=== PATIENT | male | born 1965 | race Caucasian/White ===

== ENCOUNTER 2021-05-14 15:43 | Inpatient (IN) | payer OTHER ==
[~2021-05-14] VITALS: Ht 193 cm; Wt 138.5 kg
[2021-05-14] MEDS ORDERED: AMLO10 PO (18:57)
[2021-05-14 19:14] LABS: International Normalized Ratio 1.22; Prothrombin Time Results 12.6 Sec (9.7-11.5)
[2021-05-14 19:31] LABS: Troponin I 0.018 ng/mL (0.000-0.040)
[2021-05-14 19:32] LABS: Thyroid Stimulating Hormone 0.701 uIU/mL (0.360-4.800)
[2021-05-15 03:14] LABS: Alanine Aminotransfer (ALT/SGP 47 U/L (12-78); Albumin, Blood 2.5 g/dL (3.4-5.0); Albumin/Globulin Ratio 0.6 (0.8-1.8); Alk Phos 52 U/L (50-136); Anion Gap 12 mmol/L (6-16); Aspartate Aminotrans (AST/SGOT 17 U/L (12-37); Bilirubin, Total 1.7 mg/dL (0.1-1.0); Blood Urea Nitrogen 17 mg/dL (8-24); Bun/Creatinine Ratio 16.5 (12.0-20.0); CO2, Blood 21 mmol/L (21-32); Calcium, Blood 8.6 mg/dL (8.5-10.1); Chloride, Blood 104 mmol/L (98-108); Cholesterol 123 mg/dL (50-200); Creatinine, Blood 1.03 mg/dL (0.60-1.20); Glomerular Filtration Rate >60 (60-); Glucose, Blood 171 mg/dL (70-99); HDL Cholesterol 31 mg/dL (>39); LDL/HDL RATIO 2.6; Low Density Lipoprotein Chol 81 mg/dL (0-110); Potassium, Blood 4.6 mmol/L (3.5-5.5); Sodium, Blood 137 mmol/L (136-145); Total Protein, Blood 6.5 g/dL (6.4-8.2); Triglycerides 56 mg/dL (30-160); Very Low Density Lipoprot Chol 11 mg/dL (6-32)
[2021-05-15 06:12] LABS: BASOPHILS ABSOLUTE AUTO 0.04 K/mm3 (0.00-0.23); BASOPHILS PERCENT AUTO 0 % (0-2); EOSINOPHILS PERCENT AUTO 0 % (0-6); Hematocrit 50.1 % (37.0-53.0); Hemoglobin 16.5 g/dL (13.5-17.5); IMMATURE GRAN ABSOLUTE AUTO 0.17 K/mm3 (0.00-0.10); IMMATURE GRAN PERCENT AUTO 1 % (0-1); LYMPHOCYTES ABSOLUTE AUTO 1.05 K/mm3 (0.84-5.20); LYMPHOCYTES PERCENT AUTO 6 % (21-46); MONOCYTES ABSOLUTE AUTO 1.93 K/mm3 (0.16-1.47); MONOCYTES PERCENT AUTO 12 % (4-13); Mean Corpuscular HGB 27.9 pg (26.0-34.0); Mean Corpuscular HGB Conc 32.9 g/dL (31.5-36.5); Mean Corpuscular Volume 85 fL (80-100); Mean Platelet Volume 10.7 fL (9.1-12.4); NEUTROPHILS ABSOLUTE AUTO 13.49 K/mm3 (1.96-9.15); NEUTROPHILS PERCENT AUTO 81 % (41-73); Platelet Count 376 K/mm3 (150-400); RDW Coefficient Variation 14.9 % (11.7-14.2); RDW Standard Deviation 44.2 fL (35.1-46.3); Red Blood Cell Count 5.92 M/mm3 (4.30-5.90); White Blood Cell Count 16.68 K/mm3 (4.00-11.30)
--- NOTE | 2021-05-15 07:38 | NUR ---
SHIFT SUMMARY ER TRANSFER. ASSUMED CARE AT 0500. PT ALERT AND ORIENTED X4. ON RA MAINTAINING SATS OVER 90%. AFIB 100, 110'S. CARDIZEM AND HEPARIN GTT INFUSING. +2 PITTING LOWER EXTREMITY EDEMA. C/O CHEST TIGHTNESS. SOB W/ ACTIVITY. IN BED RESTING WITH CALL ALARM AT SIDE
--- NOTE | 2021-05-15 12:31 | NUR ---
Echocardiogram completed.
--- NOTE | 2021-05-15 17:34 | NUR ---
END OF SHIFT SUMMARY: FULL CODE, COVID, PE. PATIENT HAS A HISTORY OF HTN, BP'S HAVE BEEN WNL, PATIENT DOES HAVE CHEST TIGHTNESS, HOWEVER, HAS NOT INCREASED, AND HAS BEEN CONSISTENT. TROP -, LUNGS ARE DIM ON THE RLL BUT CLEAR AND COARSE ON THE REST. PATINET HAS BEEN AFIB IN THE 90-110'S CARDIZEM DRIP AT 5, HEPARIN DRIP AT 22, 47.5 ML/HR. INDEPENT IN THE ROOM O2 AT 2LPM SPO2 >93%. APPETITE APPROPRIATE. ACTIVE IN REPOSITIONING THROUGHOUT THE DAY. EDEMA IN THE LOWER EXTREMS BILAT +1-+2 DEPENDING ON HOW LONG SITTING, PEDAL PULSES FAINT, BUT PRESENT AND WARM. HAS HAD ANXIETY PREVIOUSLY BUT WITH 2LPM NC O2, SUBSIDED.
--- NOTE | 2021-05-16 05:48 | NUR ---
SHIFT SUMMARY PT HAS BEEN UNABLE TO REST MUCH THROUGH THE NIGHT. HE IS CONSTANTLY SWITCHING PLACES IN THE ROOM AND STATES HE CAN'T GET COMFORTABLE, HAS A LOT OF ANXIETY, AND FEELS RESTLESS. PT EDUCATION ON PRONE POSITIONING & DB&C. ONE TIME DOSE OF 0.5 MG ATIVAN GIVEN, TYLENOL GIVEN FOR CHEST RELATED TO EXCESSIVE COUGHING, HEP GTT INFUSING PER EMAR. CARDIZEM GTT REMIANS @ 5MG/HR, AFIB 90'S-100'S. DENIES PAIN, ONLY STATES CHEST TIGHTNESS RELATED TO COUGHING AND CONGESTION. pT INDEPENDENT IN THE ROOM. CALL LIGHT IN REACH, BED IN LOW POSITION.
[2021-05-16 05:49] LABS: BASOPHILS ABSOLUTE AUTO 0.04 K/mm3 (0.00-0.23); BASOPHILS PERCENT AUTO 0 % (0-2); EOSINOPHILS PERCENT AUTO 0 % (0-6); Hematocrit 49.8 % (37.0-53.0); Hemoglobin 16.5 g/dL (13.5-17.5); IMMATURE GRAN ABSOLUTE AUTO 0.16 K/mm3 (0.00-0.10); IMMATURE GRAN PERCENT AUTO 1 % (0-1); LYMPHOCYTES ABSOLUTE AUTO 0.71 K/mm3 (0.84-5.20); LYMPHOCYTES PERCENT AUTO 5 % (21-46); MONOCYTES ABSOLUTE AUTO 1.62 K/mm3 (0.16-1.47); MONOCYTES PERCENT AUTO 11 % (4-13); Mean Corpuscular HGB 28.2 pg (26.0-34.0); Mean Corpuscular HGB Conc 33.1 g/dL (31.5-36.5); Mean Corpuscular Volume 85 fL (80-100); Mean Platelet Volume 10.8 fL (9.1-12.4); NEUTROPHILS ABSOLUTE AUTO 11.97 K/mm3 (1.96-9.15); NEUTROPHILS PERCENT AUTO 83 % (41-73); Platelet Count 329 K/mm3 (150-400); RDW Coefficient Variation 14.6 % (11.7-14.2); RDW Standard Deviation 45.2 fL (35.1-46.3); Red Blood Cell Count 5.86 M/mm3 (4.30-5.90)
[2021-05-16 06:42] LABS: Anion Gap 10 mmol/L (6-16); Blood Urea Nitrogen 26 mg/dL (8-24); Bun/Creatinine Ratio 24.5 (12.0-20.0); CO2, Blood 21 mmol/L (21-32); Calcium, Blood 8.9 mg/dL (8.5-10.1); Chloride, Blood 104 mmol/L (98-108); Creatinine, Blood 1.06 mg/dL (0.60-1.20); Glomerular Filtration Rate >60 (60-); Glucose, Blood 178 mg/dL (70-99); Potassium, Blood 5.2 mmol/L (3.5-5.5); Sodium, Blood 135 mmol/L (136-145)
--- NOTE | 2021-05-16 16:01 | NUR ---
Pt is A&Ox4, pleasant with cares. VSS on RA-2L. Pt has mostly been on RA today. Tele: a-fib 90-110s, cardizem gtt continued at 5mg/hr and PO cardizem was started. Isolation for COVID precautions were d/c today due to 21 days in iso. Heparin gtt is still running and will be d/c 2100 once the first dose of eliquis is given. pt is independent in room.
[2021-05-17 04:23] LABS: BASOPHILS ABSOLUTE AUTO 0.03 K/mm3 (0.00-0.23); BASOPHILS PERCENT AUTO 0 % (0-2); EOSINOPHILS ABSOLUTE AUTO 0.01 K/mm3 (0.00-0.68); EOSINOPHILS PERCENT AUTO 0 % (0-6); Hematocrit 48.8 % (37.0-53.0); Hemoglobin 15.8 g/dL (13.5-17.5); IMMATURE GRAN ABSOLUTE AUTO 0.17 K/mm3 (0.00-0.10); IMMATURE GRAN PERCENT AUTO 1 % (0-1); LYMPHOCYTES PERCENT AUTO 7 % (21-46); MONOCYTES ABSOLUTE AUTO 1.51 K/mm3 (0.16-1.47); MONOCYTES PERCENT AUTO 10 % (4-13); Mean Corpuscular HGB 27.9 pg (26.0-34.0); Mean Corpuscular HGB Conc 32.4 g/dL (31.5-36.5); Mean Corpuscular Volume 86 fL (80-100); Mean Platelet Volume 11.3 fL (9.1-12.4); NEUTROPHILS ABSOLUTE AUTO 11.84 K/mm3 (1.96-9.15); NEUTROPHILS PERCENT AUTO 81 % (41-73); Platelet Count 309 K/mm3 (150-400); RDW Coefficient Variation 14.8 % (11.7-14.2); Red Blood Cell Count 5.66 M/mm3 (4.30-5.90); White Blood Cell Count 14.56 K/mm3 (4.00-11.30)
[2021-05-17 04:44] LABS: Albumin, Blood 2.5 g/dL (3.4-5.0); Anion Gap 8 mmol/L (6-16); Blood Urea Nitrogen 27 mg/dL (8-24); Bun/Creatinine Ratio 21.3 (12.0-20.0); CO2, Blood 26 mmol/L (21-32); Calcium, Blood 9.1 mg/dL (8.5-10.1); Chloride, Blood 101 mmol/L (98-108); Creatinine, Blood 1.27 mg/dL (0.60-1.20); Glomerular Filtration Rate 59 (60-); Glucose, Blood 160 mg/dL (70-99); Phosphorus, Blood 3.7 mg/dL (2.5-4.9); Potassium, Blood 4.5 mmol/L (3.5-5.5); Sodium, Blood 135 mmol/L (136-145)
--- NOTE | 2021-05-17 18:37 | NUR ---
SHIFT SUMMARY PTR A/O X4 AND COOPERATIVE OF CARE. VSS T/O SHIFT WITH O2 SATS >94% ON RA. PT INDEPENDENT IN ROOM. NO C/O CHEST PAIN/PRESSURE T/O SHIFT. NO REPORT OF SOB T/O SHIFT. PT REPORTS "I GOT THE BEST SLEEP IN A MONTH LAST NIGHT." PT ASKED ABOUT DISCHARGE, DOCTOR INFORMED PT THAT AN 02 EVAL WHILE AMBULATING WILL NEED TO BE DONE TOMORROW, PT UNDERSTOOD. PT REORTS BEING ABLE TO BREATH EASIER DURING ASSESSMENT.
--- NOTE | 2021-05-17 22:01 | NUR ---
PATIENT IS ALERT AND ORIENTATED USES CALL LIGHT APPROPRIATELY, ABLE TO MOVE FREELY IN ROOM INDEPENDENTLY WITH BATHROOM PRIVILAGES, PATIENT RECEIVED LASIX IV TONIGHT AND HAS REPORTED HAVING TO URINATE ABOUT EVERY 20 MINUTES, LUNG SOUNDS ARE COARSE THROUGHOUT ALL PAT, USES INCENTIVE SPIROMETER THROUGHOUT SHIFT, NO NOTED COUGH REPORTS WHEN HE DOES COUGH THAT HE HAS THINNER SECRETIONS WITH SLIGHT TINGE OF PINK. HE IS AFIB ON TELEMETRY WITH RATES MAINTAINING IN THE 80'S NO COMPLAINTS OF PAIN, ON RA HASN'T USED HIS OXYGEN THIS EVENING, WILL CONTINUE TO MONITOR AND WILL CHART ANY KNOWN CHANGES.
--- NOTE | 2021-05-17 23:55 | NUR ---
PATIENT HAD A DBP AT 123, PATIENT REPORTED ANXIOUS AND HAVING DIFFICULTY SLEEPING RECEIVED ATIVAN 1MG PO. SNACK PROVIDED PER REQUEST AND WILL REEVALUATE BLOOD PRESSURE.
[2021-05-18 04:29] LABS: BASOPHILS ABSOLUTE AUTO 0.03 K/mm3 (0.00-0.23); BASOPHILS PERCENT AUTO 0 % (0-2); EOSINOPHILS PERCENT AUTO 0 % (0-6); Hematocrit 49.1 % (37.0-53.0); Hemoglobin 15.8 g/dL (13.5-17.5); IMMATURE GRAN ABSOLUTE AUTO 0.21 K/mm3 (0.00-0.10); IMMATURE GRAN PERCENT AUTO 2 % (0-1); LYMPHOCYTES ABSOLUTE AUTO 0.76 K/mm3 (0.84-5.20); LYMPHOCYTES PERCENT AUTO 6 % (21-46); MONOCYTES ABSOLUTE AUTO 1.29 K/mm3 (0.16-1.47); MONOCYTES PERCENT AUTO 11 % (4-13); Mean Corpuscular HGB 28.1 pg (26.0-34.0); Mean Corpuscular HGB Conc 32.2 g/dL (31.5-36.5); Mean Corpuscular Volume 87 fL (80-100); Mean Platelet Volume 10.9 fL (9.1-12.4); NEUTROPHILS ABSOLUTE AUTO 9.94 K/mm3 (1.96-9.15); NEUTROPHILS PERCENT AUTO 81 % (41-73); Platelet Count 281 K/mm3 (150-400); RDW Coefficient Variation 14.6 % (11.7-14.2); Red Blood Cell Count 5.62 M/mm3 (4.30-5.90); White Blood Cell Count 12.23 K/mm3 (4.00-11.30)
[2021-05-18 04:46] LABS: Albumin, Blood 2.3 g/dL (3.4-5.0); Anion Gap 7 mmol/L (6-16); Blood Urea Nitrogen 29 mg/dL (8-24); Bun/Creatinine Ratio 21.5 (12.0-20.0); CO2, Blood 27 mmol/L (21-32); Chloride, Blood 102 mmol/L (98-108); Creatinine, Blood 1.35 mg/dL (0.60-1.20); Glomerular Filtration Rate 55 (60-); Glucose, Blood 204 mg/dL (70-99); Phosphorus, Blood 3.9 mg/dL (2.5-4.9); Potassium, Blood 4.5 mmol/L (3.5-5.5); Sodium, Blood 136 mmol/L (136-145)
[2021-05-18] MEDS ORDERED: ELIQUIS5 M2 PO (12:07)
[2021-05-18] MEDS ORDERED: DEXA2 PO (12:08)
[2021-05-18] MEDS ORDERED: DILT60 PO (12:09)
[2021-05-18] MEDS ORDERED: METF500 PO (12:10)
--- NOTE | 2021-05-18 14:25 | NUR ---
PT DISCHARGE PT PROVIDED WITH DISCHARGE INSTRUCTIOSN PER [facility]. PT EDUCATED ON NEW DIABETIC DX. INSTRUCTED ON HOW TO USE GLUCOMETER. USED TEACH BACK METHOD.PT HAS HARD COPY RX FOR GLUCOMETER. MEDICATIONS FAXED TO PT'S PREFERRED PHARMACY. IV'S REMOVED. TELE REMOVED. PT LEFT BY SELF TO PRIVATE VEHICLE.
== END 2021-05-18 14:21 | disposition home or self-care (01) | DRG 177 ==
LOC: ER 15:43 → PCU 20:18 → ERHOLD 20:18 → PCU 05-15 05:07
PROVIDERS: Emergency Medicine; Internal Medicine; Student in an Organized Health Care Education/Training Program; ADMIT Internal Medicine
PROC: 8E0ZXY6 Isolation (ICD-10-PCS; 2021-05-14)
PROC: 3E0333Z Introduction of Anti-inflammatory into Peripheral Vein, Percutaneous Approach (ICD-10-PCS; 2021-05-14)
PROC: XW033E5 Introduction of Remdesivir Anti-infective into Peripheral Vein, Percutaneous Approach, New Technology Group 5 (ICD-10-PCS; principal; 2021-05-17)
DX: U07.1 COVID-19 (principal); J12.82 Pneumonia due to coronavirus disease 2019; I26.94 Multiple subsegmental thrombotic pulmonary emboli without acute cor pulmonale; J96.01 Acute respiratory failure with hypoxia; N17.9 Acute kidney failure, unspecified; I10 Essential (primary) hypertension; I48.91 Unspecified atrial fibrillation; E11.65 Type 2 diabetes mellitus with hyperglycemia; E66.9 Obesity, unspecified; Z79.899 Other long term (current) drug therapy; Z68.36 Body mass index [BMI] 36.0-36.9, adult
CPT/HCPCS: 36415; 80048; 80053; 80061; 80069; 82947; 83036; 83735; 83880; 84443; 84484; 85025; 85520; 85610; 85730; 93005; 93010; 93306; 94761; 94762; 96365; 96366; 96368; 96376; 97110; 97162; 97166; 97530; 99285-25; A9270; J1644; J1940; J7030

== ENCOUNTER 2021-06-04 14:23 | Inpatient (IN) | payer OTHER ==
[~2021-06-04] VITALS: Ht 193 cm; Wt 123.5 kg
[~2021-06-04 14:23] MED LIST: AMLO10 PO; DEXA2 PO; DILT60 PO; ELIQUIS5 M2 PO; METF500 PO
[2021-06-04 14:59] LABS: BASOPHILS ABSOLUTE AUTO 0.05 K/mm3 (0.00-0.23); BASOPHILS PERCENT AUTO 0 % (0-2); EOSINOPHILS ABSOLUTE AUTO 0.02 K/mm3 (0.00-0.68); EOSINOPHILS PERCENT AUTO 0 % (0-6); Hemoglobin 15.1 g/dL (13.5-17.5); IMMATURE GRAN ABSOLUTE AUTO 0.18 K/mm3 (0.00-0.10); IMMATURE GRAN PERCENT AUTO 1 % (0-1); LYMPHOCYTES ABSOLUTE AUTO 0.73 K/mm3 (0.84-5.20); LYMPHOCYTES PERCENT AUTO 5 % (21-46); MONOCYTES ABSOLUTE AUTO 1.26 K/mm3 (0.16-1.47); MONOCYTES PERCENT AUTO 9 % (4-13); Mean Corpuscular HGB Conc 32.8 g/dL (31.5-36.5); Mean Corpuscular Volume 85 fL (80-100); Mean Platelet Volume 11.4 fL (9.1-12.4); NEUTROPHILS ABSOLUTE AUTO 12.24 K/mm3 (1.96-9.15); NEUTROPHILS PERCENT AUTO 85 % (41-73); Platelet Count 254 K/mm3 (150-400); RDW Coefficient Variation 15.2 % (11.7-14.2); RDW Standard Deviation 47.1 fL (35.1-46.3); Red Blood Cell Count 5.39 M/mm3 (4.30-5.90); White Blood Cell Count 14.48 K/mm3 (4.00-11.30)
[2021-06-04 15:10] LABS: PO2 Arterial 57.4 mmHg (80-100); pH Blood Arterial 7.47 (7.35-7.45)
[2021-06-04 15:11] LABS: PCO2 Arterial 19.4 mmHg (35-45)
[2021-06-04 15:20] LABS: Calcium, Blood 8.7 mg/dL (8.5-10.1); Creatinine, Blood 1.68 mg/dL (0.60-1.20); Magnesium, Blood 1.4 mg/dL (1.6-2.4); Troponin I 0.027 ng/mL (0.000-0.040)
[2021-06-04 16:11] LABS: Influenza A, PCR NEGATIVE (NEGATIVE); Influenza B, PCR NEGATIVE (NEGATIVE); Resp Syncytial Virus, PCR NEGATIVE (NEGATIVE)
[2021-06-04 16:13] LABS: SARS-Cov-2 (COVID-19) PCR, MMC POSITIVE (NEGATIVE)
--- NOTE | 2021-06-04 18:59 | NUR ---
Pt arrived to PCU, labored breathing, RR 44/ min on bipap V60 settings 12/10 and 80% fio2. He is anxious, wanting to take of the bipap and saying, "I can't take it anymore". RN from ED and RT at bedside, as well as accepting ELECTRICAL TECH. Cyanosis and mottling noted of feet and lower legs, dusky face and cold, clammy skin. ICU transmitter engineer in charge Joe called to come see the pt. Decision made to transfer pt to ICU.
--- NOTE | 2021-06-04 19:15 | NUR ---
ASSUMED CARE/ARRIVED TO ICU PATIENT ARRIVED TO ICU ON BIPAP W/ LABORED BREATHING AND SPO2 IN LOW 80'S DESPITE 100% FIO2. PATIENT SPEAKS 2-3 WORDS BETWEEN BREATHS AND RR 40'S. PATIENT IS HYPOTENSIVE W/ MAPS IN LOW 50'S. SKIN IS OVERALL PALE AND DIAPHORETIC/CLAMMY. PULSES IN DANIELE RADIAL AND DANIELE DP/PT BY DOPPLER ONLY. PATIENT IS INCREASINGLY CONFUSED AND UNABLE TO ANSWER QUESTIONS APPROPRIATELY. PULLS AT LINES AND MOVES FREQUENTLY IN BED. TEMP FARLEY PLACED AT BEDSIDE DURING ASSESSMENT. BEDSIDE REPORT COMPLETED W/ INSPECTOR COATED [employer].
[2021-06-04 19:25] LABS: PCO2 Arterial 20.2 mmHg (35-45); PO2 Arterial 231 mmHg (80-100); pH Blood Arterial 7.12 (7.35-7.45)
[2021-06-04 20:07] LABS: BASOPHILS ABSOLUTE AUTO 0.08 K/mm3 (0.00-0.23); BASOPHILS PERCENT AUTO 1 % (0-2); EOSINOPHILS ABSOLUTE AUTO 0.01 K/mm3 (0.00-0.68); EOSINOPHILS PERCENT AUTO 0 % (0-6); Hematocrit 41.6 % (37.0-53.0); IMMATURE GRAN ABSOLUTE AUTO 0.63 K/mm3 (0.00-0.10); IMMATURE GRAN PERCENT AUTO 5 % (0-1); LYMPHOCYTES ABSOLUTE AUTO 0.98 K/mm3 (0.84-5.20); LYMPHOCYTES PERCENT AUTO 7 % (21-46); MONOCYTES ABSOLUTE AUTO 1.17 K/mm3 (0.16-1.47); MONOCYTES PERCENT AUTO 9 % (4-13); Mean Corpuscular HGB 28.1 pg (26.0-34.0); Mean Corpuscular HGB Conc 31.3 g/dL (31.5-36.5); Mean Platelet Volume 11.3 fL (9.1-12.4); NEUTROPHILS ABSOLUTE AUTO 10.32 K/mm3 (1.96-9.15); NEUTROPHILS PERCENT AUTO 78 % (41-73); NRBC ABSOLUTE 0.02 K/mm3 (0.00-0.02); NRBC Auto 0.2 /100 WBC (0.0-0.2); Platelet Count 206 K/mm3 (150-400); RDW Coefficient Variation 15.1 % (11.7-14.2); RDW Standard Deviation 49.3 fL (35.1-46.3); Red Blood Cell Count 4.62 M/mm3 (4.30-5.90); White Blood Cell Count 13.19 K/mm3 (4.00-11.30)
[2021-06-04 20:11] LABS: Mean Corpuscular Volume 90 fL (80-100)
[2021-06-04 20:26] LABS: Troponin I 0.065 ng/mL (0.000-0.040)
[2021-06-04 20:29] LABS: Source, Urine Catheter
[2021-06-04 20:38] LABS: Albumin/Globulin Ratio 0.5 (0.8-1.8); Bilirubin, Total 3.6 mg/dL (0.1-1.0); Bun/Creatinine Ratio 17.3 (12.0-20.0); Creatinine, Blood 1.96 mg/dL (0.60-1.20); Globulin, Blood 3.7 g/dL (2.2-4.0); Potassium, Blood 5.6 mmol/L (3.5-5.5); Total Protein, Blood 5.7 g/dL (6.4-8.2)
[2021-06-04 20:39] LABS: Calcium, Blood 6.6 mg/dL (8.5-10.1)
[2021-06-04 20:39] LABS: Blood, Urine 3+ (Neg); Glucose Qualitative, Urine Neg (Neg); Ketones, Urine 1+ (Neg); Leukocyte Esterase, Urine 1+ (Neg); Nitrite, Urine Pos (Neg); Protein, Urine 3+ (Neg); Urobilinogen, Urine 3+ (Normal)
[2021-06-04 20:49] LABS: Appearance, Urine Hazy (Clear); Bilirubin, Urine 2+ (Neg); Color, Urine Amber (P-Yellow)
[2021-06-04 20:51] LABS: Amorphous Light (0-Heavy); Bacteria Mod /hpf; Squamous Epithelial Cells Few /hpf (Few)
[2021-06-04 22:04] LABS: pH Blood Arterial 7.07 (7.35-7.45)
[2021-06-04 22:05] LABS: PCO2 Arterial 18.5 mmHg (35-45); PO2 Arterial 258 mmHg (80-100)
--- NOTE | 2021-06-04 23:00 | NUR ---
INTUBATION PATIENT BECAME INCREASINGLY TACHYPNEIC W/ RR IN HIGH 40'S W/ INCREASED WOB AND DECREASED SPO2 IN 80'S. DURING THE PROCEDURE THE PATIENT WAS SEDATED W/ A TOTAL OF 130 MCG OF PROPOFOL AND BECAME MORE HYPOTENSIVE W/ MAPS IN 40'S DESPITE DOBUTAMINE AND LEVOPHED GTT. PHENYLEPHRINE IVP 100 MCG X 3 GIVEN FOR A TOTAL OF 300 MCG GIVEN DURING PROCEDURE ALONG WITH 500ML NS BOLUS. PATIENT SUBSEQUENTLY STARTED ON VASOPRESSIN AND PHENYLEPHRINE GTTS. SEE OPERATIVE NOTES FOR FURTHER INFORMATION ON INTUBATION.
[2021-06-04 23:29] LABS: PCO2 Arterial 22.2 mmHg (35-45); PO2 Arterial 322 mmHg (80-100)
[2021-06-04 23:30] LABS: pH Blood Arterial 7.11 (7.35-7.45)
[2021-06-04 23:39] LABS: Bun/Creatinine Ratio 14.8 (12.0-20.0); Creatinine, Blood 2.9 mg/dL (0.60-1.20)
[2021-06-05 00:01] LABS: Calcium, Blood 8.8 mg/dL (8.5-10.1)
[2021-06-05 02:00] LABS: U Amphetamine Screen Not Detected; U Barbituate Screen Not Detected; U Benzodiazapine Screen Not Detected; U Buprenorphine Screen Not Detected; U Cannabinoids Screen Not Detected; U Cocaine Screen Not Detected; U Methadone Screen Not Detected; U Methamphetamine Screen Not Detected; U Opiates Screen Not Detected; U Oxycodone Screen Not Detected; U Phencyclidine Screen Not Detected; U Propoxyphene Screen Not Detected
[2021-06-05 03:52] LABS: Hematocrit 41.9 % (37.0-53.0); Hemoglobin 13.1 g/dL (13.5-17.5); Mean Corpuscular HGB 28.1 pg (26.0-34.0); Mean Corpuscular HGB Conc 31.3 g/dL (31.5-36.5); Mean Corpuscular Volume 90 fL (80-100); Mean Platelet Volume 11.6 fL (9.1-12.4); NRBC ABSOLUTE 0.03 K/mm3 (0.00-0.02); NRBC Auto 0.2 /100 WBC (0.0-0.2); Platelet Count 191 K/mm3 (150-400); RDW Coefficient Variation 15.3 % (11.7-14.2); RDW Standard Deviation 50.4 fL (35.1-46.3); Red Blood Cell Count 4.67 M/mm3 (4.30-5.90); White Blood Cell Count 15.83 K/mm3 (4.00-11.30)
[2021-06-05 04:09] LABS: International Normalized Ratio 3.1; Prothrombin Time Results 30.2 Sec (9.7-11.5)
[2021-06-05 04:25] LABS: Magnesium, Blood 2.1 mg/dL (1.6-2.4); Troponin I 0.127 ng/mL (0.000-0.040)
[2021-06-05 04:33] LABS: PCO2 Arterial 24.2 mmHg (35-45); PO2 Arterial 118 mmHg (80-100); pH Blood Arterial 7.21 (7.35-7.45)
[2021-06-05 05:07] LABS: Albumin, Blood 1.9 g/dL (3.4-5.0); Albumin/Globulin Ratio 0.5 (0.8-1.8); Bilirubin, Total 4.7 mg/dL (0.1-1.0); Calcium, Blood 8.4 mg/dL (8.5-10.1); Creatinine, Blood 3.29 mg/dL (0.60-1.20); Globulin, Blood 3.5 g/dL (2.2-4.0); Phosphorus, Blood 8.5 mg/dL (2.5-4.9); Potassium, Blood 6.9 mmol/L (3.5-5.5); Total Protein, Blood 5.4 g/dL (6.4-8.2)
--- NOTE | 2021-06-05 05:22 | NUR ---
VALUABLES PATIENT HAS CELL PHONE, GLASSES AND WALLET IN ROOM. FAMILY DECLINED TO TAKE BELONGINGS HOME. WALLET HAS CURTIS INSIDE AMOUNTING TO 88 DOLLARS, COUNTED WITH NEVAEH BECERRA. THESE BELONGINGS ARE PLACED IN A ZIPLOCK BAG, THEN PLACED IN WHITE BELONGINGS BAG WITH CLOTHING. WILL AGAIN ENCOURAGE FAMILY TO TAKE THESE BELONGINGS HOME.
[2021-06-05 05:31] LABS: BAND PERCENT MAN 12 % (0-8); BASOPHILS PERCENT MAN 0 % (0-2); EOSINOPHILS PERCENT MAN 0 % (0-6); LYMPHOCYTES ABSOLUTE MAN 0.63 K/mm3 (0.84-5.20); LYMPHOCYTES PERCENT MAN 4 % (21-46); MONOCYTES ABSOLUTE MAN 1.42 K/mm3 (0.16-1.47); MONOCYTES PERCENT MAN 9 % (4-13); MYELOCYTE ABSOLUTE MAN 0.15 K/mm3 (0.00-0.00); MYELOCYTE PERCENT MAN 1 % (0-0); NEUTROPHILS ABSOLUTE MAN 13.61 K/mm3 (1.96-9.15); SEG NEUTROPHILS PERCENT MAN 74 % (41-73); TOTAL CELLS COUNTED 100
--- NOTE | 2021-06-05 05:51 | NUR ---
SHIFT SUMMARY PATIENT CAME TO ICU ON BIPAP WITH 100% FIO2, INTUBATED AFTER ARRIVING TO ICU. CL AND ART LINE PLACED TO RT FEMORAL. BLOOD PRESSURES REMAINED LOW; STARTED ON LEVOPHED, DOBUTAMINE, VASOPRESSIN, PHENYLEPHRINE, AND DOPAMINE TO KEEP MAPS 65 OR GREATER; MAPS CURRENTLY HIGH 50'S. PROPOFOL AND PRECEDEX IS INF FOR SEDATION. SODIUM BICARB INF. SEE FLOW SHEET FOR GTT RATES. PATIENT IS ON AC/PC PI 25, PEEP 8, RATE 30, FIO2 50%. RR IN 30'S, SPO2 IN LOW 90'S. PATIENT BITES ON ETT PERIODICALLY AND REQUIRES PRN ATIVAN PUSHES TO PROMOTE VENTILATOR COMPLIANCE. OGT PLACED AND PLACED TO INTERMITTENT SUCTION. TEMP FARLEY PATENT AND DRAINED 100ML KEKE CLEAR URINE. TEMP INCREASED FROM 100 TO 101.3F. FAMILY CAME TO BEDSIDE AND UPDATES WERE GIVEN ON PATIENT CONDITION AND PROGNOSIS. FAMILY WAS ENCOURAGED TO TAKE HOME PATIENT BELONGINGS, BUT DECLINED. SEE NOTE "VALUABLES".
--- NOTE | 2021-06-05 11:20 | NUR ---
ASSUMED CARE @0700 PATIENT INTUBATED AND SEDATED ON PROPOFOL, PRECEDEX AND ATIVAN PRN. PATIENT MOVING IN BED COUGHING AT START OF SHIFT, MEDICATED WITH ATIVAN. RESPONDS TO PAINFUL STIMULI. 02 SATS 95% ON VENT AC PC 30/8/50%, RR 30. LUNGS CLEAR TO DIMINISHED IN THE BASES. SCANT AMOUNT OF BLOODY SPUTUM IN SUCTION TUBE. HR A. FIB @90s-130s. BP STABLE WITH MULTIPLE PRESSORS LEVO, DOPAMINE, DOBUTAMINE, VASO, AND MEENA. STARTED EPI AND ABLE TO TITRATE DOPAMINE, DOBUTAMINE, AND MEENA OFF. ART LINE IN PLACE. TOES PURPLE/BLUE, CAP REFILL >3 SECONDS. DOPPLER PULSES ON BLE. OG TUBE TO LIS, SMALL AMOUNT OF BROWN BILE. BOWEL TONES ABSENT. FARLEY WITH SMALL AMOUNT OF KEKE OUTPUTT ONE TIME ORDER FOR LASIX, SODIUM BICARB STOPPED PER DR. MANN. CBG 423, INSULIN GTT ORDERED, WILL START. TURNED Q2 HOURS. SPOKE WITH DAUGHTER ROBERT AND UPDATED ON PT CONDITION, SHE WILL UPDATE FAMILY. SEE SHIFT ASSESSMENT FOR MORE DETAIL.
[2021-06-05 12:07] LABS: PCO2 Arterial 26.2 mmHg (35-45); PO2 Arterial 88.4 mmHg (80-100); pH Blood Arterial 7.36 (7.35-7.45)
[2021-06-05 12:22] LABS: Bun/Creatinine Ratio 12.7 (12.0-20.0); Calcium, Blood 7.2 mg/dL (8.5-10.1); Creatinine, Blood 3.87 mg/dL (0.60-1.20); Potassium, Blood 5.7 mmol/L (3.5-5.5)
--- NOTE | 2021-06-05 14:54 | NUR ---
SOME SEDIMENT NOTICED IN FARLEY CATHETER, IRRIGATED WITH 100 MLS STERILE WATER, STILL MINIMAL OUTPUT BUT FARLEY PATENT.
[2021-06-05 16:25] LABS: PO2 Arterial 74.2 mmHg (80-100); pH Blood Arterial 7.47 (7.35-7.45)
[2021-06-05 16:45] LABS: Bun/Creatinine Ratio 12.3 (12.0-20.0); Calcium, Blood 6.6 mg/dL (8.5-10.1); Creatinine, Blood 4.23 mg/dL (0.60-1.20)
--- NOTE | 2021-06-05 18:04 | NUR ---
SHIFT SUMMARY PATIENT REMAINS INTUBATED AND SEDATED ON PROPOFOL AND PRECEDEX. PATIENT RESPONDS TO SUCTIONING AND PAINFUL STIMULI. 02 SATS 97% ON VENT AC PC 25/5/35%, RR 30. LUNGS CLEAR TO DIMINISHED. RT TITRATED VENT SETTINGS AFTER MOST RECENT ABG. HR A.FIB IN THE 90s. BP MAP >65 ON LEVO, VASO AND EPI. TOES REMAIN PURPLE/BLUE, NO CHANGE THIS SHIFT. DOPPLER PULSES FOR BLE. OG TO LIS, 50 MLS OUTPUT OF BROWN/GREEN BILE. BOWEL TONES REMAIN ABSENT. FARLEY DRAINING SCANT AMOUNT OF KEKE URINE, 60 MLS OUTPUT THIS ENTIRE SHIFT. DR. MANN AWARE, FAMILY OK WITH DIALYSIS BUT WILL TRY DIURETICS OVERNIGHT. Q1 CBG, INSULIN GTT INF. Q2 HOUR TURNS. NIECE AND SON IN TO VISIT PATIENT. DR. MANN CALLED AND UPDATED DAUGHTER AROUND 1800.
--- NOTE | 2021-06-05 19:30 | NUR ---
ASSUMED CARE PATIENT LYING IN BED INTUBATED AND SEDATED. CURRENTLY ON PC 22/5 30% FIO2 WITH SPO2 IN MID 90'S. SEDATED W/ PROPOFOL 15MCG/KG/MIN AND PRECEDEX 0.2MCG/KG/HR. DOES NOT OPEN EYES OR FOLLOW COMMANDS. CENTRAL LINE AND ART LINE TO RT FEMORAL AND 18G PIV TO LT AC, AND 2 18G PIV TO RT FOREARM. LT AC AND RT FOREARM IV REMOVED AT BEDSIDE DURING ASSESSMENT. CL DRESSING INTACT W/ CLOTTED BLOOD UNDERNEATH; DRESSING CHANGED FOLLOWING ASSESSMENT. SEE FLOWSHEET FOR GTT RATES. NO FAMILY AT BEDSIDE DURING THIS TIME. TEMP FARLEY PATENT AND DRAINING TO GRAVITY. REPORT COMPLETED W/ DAYSHIKALEB RN.
[2021-06-06 04:10] LABS: Hematocrit 42.1 % (37.0-53.0); Hemoglobin 14.2 g/dL (13.5-17.5); Mean Corpuscular HGB Conc 33.7 g/dL (31.5-36.5); Mean Platelet Volume 10.9 fL (9.1-12.4); NRBC ABSOLUTE 0.08 K/mm3 (0.00-0.02); NRBC Auto 0.6 /100 WBC (0.0-0.2); Platelet Count 220 K/mm3 (150-400); RDW Coefficient Variation 14.6 % (11.7-14.2); RDW Standard Deviation 43.4 fL (35.1-46.3); Red Blood Cell Count 5.08 M/mm3 (4.30-5.90); White Blood Cell Count 12.62 K/mm3 (4.00-11.30)
[2021-06-06 04:14] LABS: Mean Corpuscular Volume 83 fL (80-100)
[2021-06-06 04:47] LABS: Alanine Aminotransfer (ALT/SGP 7203 U/L (12-78); Albumin, Blood 1.9 g/dL (3.4-5.0); Albumin/Globulin Ratio 0.5 (0.8-1.8); Alk Phos 113 U/L (50-136); Anion Gap 14 mmol/L (6-16); Aspartate Aminotrans (AST/SGOT 8727 U/L (12-37); BAND PERCENT MAN 8 % (0-8); BASOPHILS PERCENT MAN 0 % (0-2); Bilirubin, Total 6.3 mg/dL (0.1-1.0); Blood Urea Nitrogen 60 mg/dL (8-24); Bun/Creatinine Ratio 11.4 (12.0-20.0); CO2, Blood 19 mmol/L (21-32); Calcium, Blood 6.4 mg/dL (8.5-10.1); Chloride, Blood 93 mmol/L (98-108); Creatinine, Blood 5.28 mg/dL (0.60-1.20); EOSINOPHILS PERCENT MAN 0 % (0-6); Globulin, Blood 3.5 g/dL (2.2-4.0); Glomerular Filtration Rate 11 (60-); Glucose, Blood 195 mg/dL (70-99); LYMPHOCYTES ABSOLUTE MAN 0.25 K/mm3 (0.84-5.20); LYMPHOCYTES PERCENT MAN 2 % (21-46); MONOCYTES PERCENT MAN 4 % (4-13); NEUTROPHILS ABSOLUTE MAN 11.86 K/mm3 (1.96-9.15); Potassium, Blood 5.1 mmol/L (3.5-5.5); SEG NEUTROPHILS PERCENT MAN 86 % (41-73); Sodium, Blood 126 mmol/L (136-145); TOTAL CELLS COUNTED 100; Total Protein, Blood 5.4 g/dL (6.4-8.2)
--- NOTE | 2021-06-06 06:40 | NUR ---
SHIFT SUMMARY PATIENT REMAINED INTUBATED AND SEDATED DURING SHIFT W/ SPO2 IN MID TO HIGH 90'S. PATIENT BECAME TACHYCARDIC THIS MORNING WITH RATES STEADILY STAYING IN THE 120'S-130'S AND INCREASING UP TO THE 150'S. SEE FLOWSHEET FOR GTT RATES. TEMP FARLEY STILL PATENT AND DRAINED 135ML OUT DURING SHIFT. MORNING LABS SHOWED LOW CALCIUM AND SODIUM; DR. SAUNDERS NOTIFIED AND NO ORDERS GIVEN. NO OTHER MAJOR CHANGES DURING SHIFT.
--- NOTE | 2021-06-06 09:42 | NUR ---
ASSUMED CARE @0700 PATIENT IS INTUBATED AND SEDATED ON PROPOFOL AND PRECEDEX, TITRATED BOTH UP D/T PATIENT COUGHING AND APPEARING AGITATED. PATIENT DOES NOT OPEN EYES, MOVES FINGERS AND FEET SPONTANEUOSLY. 02 SATS 94% ON VENT AC PC 22/5 35%. LUNGS CLEAR TO DIMINISHED. SMALL AMOUNT OF PIPER SPUTUM SUCTIONED. HR A.FIB 120s-140s CONSISTENTLY, UP TO 160s. TURNED EPI OFF. BP STABLE ON LEVO AND VASO. TOES REMAIN PRUPLE/BLUE, DOPPLER PULSES IN BLE. BOWEL SOUNDS ABSENT. FARLEY DRAINING SCANT AMOUNT OF URINE. DR. MANN TO ROOM, ORDERS FOR HEPARIN gtt. WILL BE PLACING DIALYSIS CATHETER SHORTLY. SEE SHIFT ASSESSMENT FOR MORE INFORMATION.
--- NOTE | 2021-06-06 16:16 | NUR ---
TUBE FEED WITH VITAL HP STARTED @1600, RATE 25 MLS/HR GOAL IS 50 MLS/HR WITH 30 MLS FLUSHES Q4.
[2021-06-06 17:38] LABS: PCO2 Arterial 27.4 mmHg (35-45); pH Blood Arterial 7.44 (7.35-7.45)
--- NOTE | 2021-06-06 17:55 | NUR ---
SHIFT SUMMARY PATIENT IS INTUBATED AND SEDATED ON PROPOFOL AND PRECEDEX. DOES NOT OPEN EYES BUT MOVES HANDS AND FEET SPONTANEOUSLY, WHEN NOT SEDATED ENOUGH COUGHS AGAINST THE VENT AND 02 SATS DECREASE. 02 SATS 93% ON VENT AC PC 14/5 40%. RR 30s. LUNG SOUNDS CLEAR TO DIMINISHED. HR A FIB 130-140s AND UP TO 160 AT TIMES, AMIO GTT STARTED AND HR 110-130. HEPARIN GTT ALSO STARTED PER DR. MANN. BP STABLE ON LEVO AND VASO, TITRATED EPI OFF DUE TO HR. BOWEL TONES ABSENT, TUBE FEED STARTED AT 25 MLS/HR WITH 30 MLS FLUSHES Q4, GOAL RATE IS 50 MLS/HR. 40 MLS OUTPUT FROM FARLEY, DIALYSIS DONE AND 2L OFF. TURNED Q2 HOURS. BILATERAL WRIST RESTRAINTS IN PLACE. TERELL VISITED TODAY.
--- NOTE | 2021-06-06 18:06 | NUR ---
INSULIN GTT INF, LANTUS GIVEN AND WILL TURN INSULIN GTT OFF ONE HOUR AFTER. START REGULAR INSULIN Q4 AFTER GTT OFF.
--- NOTE | 2021-06-06 19:30 | NUR ---
ASSESSMENT/ASSUMED CARE PT INTUBATED AND ON [facility]. LUNG CLEAR BUT DECREAED IN THE BASES. VENT SETTINGS AC/PC 28 PEEP 5 FIO2 40% PI 14. SUCTIONED SMALL AMT CLEAR SECRECTIONS VIA ET TUBE. HEART RATE IRREGULAR-AFIB. PT ON AMIODARONE AT 0.5 MG/MIN. BP VIA NEIL TO RIGHT GROIN. ZEROED NEIL. LEVOPHED AT 25 MCQ/MIN WITH VASOPRESSIN AT 0.04 UNIT/MIN. TITRATE TO KEEP MAP GREATER THAN 65. MANUAL BP DONE CORRELATES WITH NEIL. GENERAL EDEMA. PEDAL PULSES VIA DOPPLER. TOES PURPLE. BT+ VERY HYPOACTIVE. OG WITH TUBE FEED VITAL HP 1.0 NOE AT 25 ML/HR WITH WATER 30 ML Q4HR. RESIDUAL ZERO. FARLEY CATH WITH SMALL AMT CLEAR YELLOW URINE IN TUBE. COCCXY DRSG INTACT. DIALYSIS CATH TO RIGHT IJ, DRSG INTACT, SITE CLEAR. CENTRAL LINE TO RIGHT GROIN WITH NEIL, DRSG MOIST. WILL REPLACE. REPOSITIONED AND ORAL CARE DONE. BILAT SOFT WRIST RESTRAINTS ON. IV 18G TO RIGHT FOREARM WITH NS AT 10 ML/HR FOR ANTIBIOTICS, SITE CLEAR.
--- NOTE | 2021-06-06 20:36 | NUR ---
VENT SETTINGS SPO2 DOWN TO 88-899%. RT INCREASED PEEP TO 6 AND FIO2 TO 60%.
--- NOTE | 2021-06-06 22:10 | NUR ---
HYPOTENSION RESTARTED EPI GTT DUE TO HYPOTESION. LEVOPHED UP TO 30 MCQ/MIN AND EPI AT 4 MCQ/MIN. NOTIFIED DR MANN, RECEIVED ORDER FOR MEENA-SYNEPHRINE.
[2021-06-06 22:25] LABS: Hematocrit 44.1 % (37.0-53.0)
--- NOTE | 2021-06-06 22:25 | NUR ---
TEMP TEMP UP TO 101.3, APPLIED ICE PACKS. PT STARTED ON MEENA-SYNEPHRINE AT 100 MCQ/MIN FOR HYPOTENSTION.
[2021-06-07 01:08] LABS: Hematocrit 45.4 % (37.0-53.0); Hemoglobin 15.1 g/dL (13.5-17.5); Mean Corpuscular HGB 27.8 pg (26.0-34.0); Mean Corpuscular HGB Conc 33.3 g/dL (31.5-36.5); Mean Corpuscular Volume 84 fL (80-100); NRBC ABSOLUTE 0.16 K/mm3 (0.00-0.02); Platelet Count 273 K/mm3 (150-400); RDW Coefficient Variation 15.1 % (11.7-14.2); RDW Standard Deviation 45.1 fL (35.1-46.3); Red Blood Cell Count 5.43 M/mm3 (4.30-5.90); White Blood Cell Count 15.45 K/mm3 (4.00-11.30)
[2021-06-07 01:40] LABS: BAND PERCENT MAN 3 % (0-8); BASOPHILS PERCENT MAN 0 % (0-2); EOSINOPHILS PERCENT MAN 0 % (0-6); LYMPHOCYTES ABSOLUTE MAN 0.15 K/mm3 (0.84-5.20); LYMPHOCYTES PERCENT MAN 1 % (21-46); METAMYELOCYTE ABSOLUTE MAN 0.15 K/mm3 (0.00-0.00); METAMYELOCYTE PERCENT MAN 1 % (0-0); MONOCYTES ABSOLUTE MAN 1.85 K/mm3 (0.16-1.47); MONOCYTES PERCENT MAN 12 % (4-13); NEUTROPHILS ABSOLUTE MAN 13.28 K/mm3 (1.96-9.15); SEG NEUTROPHILS PERCENT MAN 83 % (41-73); TOTAL CELLS COUNTED 100
[2021-06-07 01:41] LABS: Magnesium, Blood 1.9 mg/dL (1.6-2.4)
[2021-06-07 02:28] LABS: Anion Gap 21 mmol/L (6-16); Blood Urea Nitrogen 62 mg/dL (8-24); Bun/Creatinine Ratio 10.2 (12.0-20.0); CO2, Blood 13 mmol/L (21-32); Calcium, Blood 6.4 mg/dL (8.5-10.1); Chloride, Blood 89 mmol/L (98-108); Creatinine, Blood 6.06 mg/dL (0.60-1.20); Glomerular Filtration Rate 10 (60-); Glucose, Blood 316 mg/dL (70-99); Phosphorus, Blood 6.9 mg/dL (2.5-4.9); Sodium, Blood 123 mmol/L (136-145)
--- NOTE | 2021-06-07 02:48 | NUR ---
CRITICAL LAB POTASSIUM 6.[address] KIMBALL, REVIEWED OTHER LABS. OBTAINED ORDER FOR 4MG BUMEX IV NOW-GIVEN, AND DIALYSIS TODAY.
--- NOTE | 2021-06-07 05:14 | NUR ---
SHIFT SUMMARY PT CONT INTUBATED AND ON [facility] VENT. VENT CHANGES DURING THE NIGHT PEEP INCREASED TO 6 BUT NOW BACK DOWN TO 5. FIO2 INCREASED TO 60 %. CURRENT SPO2 99%. LUNGS CONT CLEAR BUT DECREASED IN THE BASES. HEART RATE DOWN TO 100'S AND SINUS. PT CONT ON AMIODARONE GTT AT 0.5 MG/MIN. PT HAD HYPOTENSION DURING THE NIGHT AND WAS RESTARTED ON EPI AND STARTED ON MEENA-SYNEPHRINE. CURRENTLY PT ON LEVOPHED 30 MCQ/MIN, VASOPRESSIN 0.04 UNITS/MIN, EPI 6 MCQ/MIN, AND MEENA-SYNEPHRINE AT 175 MCQ/MIN TO KEEP MAP ABOVE 65. IMPROVED BP AFTER MEENA-SYNEPHRINE STARTED. PT CONT SEDATED WITH PROPOFOL AT 25 MCQ/KG/MIN AND PRECEDEX 0.4 MCQ/KG/MIN. BILAT SOFT WRIST RESTRAINTS ON. PT TURNED Q2HR. TUBE FEED VITAL HP 1.0CAL AT GOAL RATE OF 50 ML/HR, WATER 30 ML Q4HR. MIN RESIDUALS. POTASSIUM CRITICAL HIGH THIS AM AT 6.0, CALLED TO DR KIMBALL. BUMEX 4MG GIVEN. PT TO HAVE DIALYSIS TODAY. TMAX 101.5, TYLENOL GIVEN, ICE PACKS APPLIED AND FAN ON PT. TEMP NOW DOWN TO 99.5. DR MANN INTO SEE PT. INSTRUCTED TO RESTART INSULIN GTT. REPORT TO ON COMING NURSE
--- NOTE | 2021-06-07 06:43 | NUR ---
2 AMP BICARB GIVEN VIA IV, PER DR KIMBALL
[2021-06-07 08:09] LABS: HBSAG SCREEN Negative (Negative); HEP A AB, IGM Negative (Negative); HEP B CORE AB, IGM Negative (Negative); HEP C VIRUS AB <0.1 (0.0-0.9)
--- NOTE | 2021-06-07 10:31 | NUR ---
ASSUMED CARE @0700 PATIENT IS INTUBATED AND SEDATED ON PROPOFOL AND PRECEDEX. COUGHS WITH SUCTIONING AND OCCASIONALLY MOVES FINGERS AND TOES TO PAINFUL STIMULI. NO EYE OPENING. 02 SATS 94% ON VENT AT AC PC RATE 28, PEEP 5, FI02 55%, PI 14. LUNGS CLEAR TO DIMINISHED. UNABLE TO GET SPUTUM SAMPLE AT THIS TIME WILL TRY AGAIN LATER. HR A.FIB 110-130s AMIO gtt TO BE CONTINUOUS. BP STABLE ON LEVO, VASO, EPI, AND MEENA. BP IMPROVED WHEN DIALYSIS STARTED, STARTED TITRATING MEENA DOWN FIRST PER DR. KUHN. BILATERAL FEET PURPLE/BLUE, DOPPLER PULSES FOUND. BOWEL TONES ABSENT, TUBE FEED INF VITAL HP @ GOAL RATE 50 MLS/HR WITH 30 MLS FLUSHES Q4 HOUR, NO RISIDUAL. FARLEY DRANING SCANT AMOUNT OF URINE. SODIUM BICARN gtt STARTED PER DR. KIMBALL. PATIENT CURRENTLY RECIEVING DIALYSIS. SEE SHIFT ASSESSMENT FOR MORE DETAIL.
[2021-06-07 10:35] LABS: Albumin, Blood 1.8 g/dL (3.4-5.0); Albumin/Globulin Ratio 0.5 (0.8-1.8); Bilirubin, Total 7.5 mg/dL (0.1-1.0); Bun/Creatinine Ratio 10.1 (12.0-20.0); Creatinine, Blood 6.43 mg/dL (0.60-1.20); Globulin, Blood 3.5 g/dL (2.2-4.0); Potassium, Blood 5.3 mmol/L (3.5-5.5); Total Protein, Blood 5.3 g/dL (6.4-8.2)
--- NOTE | 2021-06-07 11:43 | NUR ---
TUBE FEED ADJUSTED TO GOAL RATE OF 25 MLS/HR
--- NOTE | 2021-06-07 17:48 | NUR ---
SHIFT SUMMARY PATIENT REMAINS INTUBATED AND SEDATED ON PROPOFOL AND PRECEDEX. VENT SETTINGS REMAIN UNCHANGED. REMAINS IN A.FIB RATE 90s-120, AMIO GTT CONTINUOUS PER DR. KUHN. BP STABLE ON LEVO AND VASO. TRITRATED OFF EPI AND MEENA, D/T BP SIGNIFICANTLY IMPROVING DURING AND AFTER DIALYSIS. HEPARIN INF. SODIUM BICARB INF. FARLEY OUTPUT OF 50 MLS DARK YELLLOW. TUBE FEED AT NEW GOAL RATE OF 25 ML/HR OF VITAL HP. BOWEL TONES ABSENT. INSULING GTT STILL INF. REPOSITIONED Q2 HOURS.
--- NOTE | 2021-06-07 19:30 | NUR ---
ASSUMED PT CARE AT 1915 PT INTUBATED AND SEDATED. PROPOFOL AT 25MCG/KG/MIN, PRECEDEX AT 0.4 MCG/KG/HR. VENT SETTINGS AC/PC 28, PI 14, PEEP 5, FIO2 45%; RESP RATE 30'S. SPO2 >90%. PT DIFFICULT TO AROUSE WITH NO COUGH/GAG NOTED; THEREFORE, PRECEDEX TURNED OFF UPON ASSUMPTION OF CARE. PT WITHDRAWALS AND GRIMACES TO PAINFUL STIMULI. PT NOTED TO BE AFIB WITH RVR; RATE 100-120'S. BP'S STABLE WITH ART LINE TO RIGHT FEMORAL. LEVOPHED AT 18 MCG/MIN, VASOPRESSIN AT 0.04 UNITS/MIN, AMIODARONE AT 0.5MCG/MIN, HEPARIN AT 20 UNITS/KG/HR, INSULIN AT 8 UNITS/HR, BICARB AT 50ML/HR VIA CENTRAL LINE TO RIGHT FEMORAL SITE. PT HAS A TRIALYSIS CATHETER TO RIGHT IJ. FARLEY CATHETER IS PATENT AND DRAINING YELLOW URINE WITH SOME SEDIMENT; DID IRRIGATE WITH 30CC OF STERILE WATER TO CHECK PATENCY. VERY MINIMAL URINE OUTPUT NOTED. PT DID RECEIVE DIALYSIS TODAY PER REPORT. PT IS VERY EDEMATOUS T/O WITH BILATERAL FEET NOTED TO BE CYANOTIC WITH DOPPLER PULSES ONLY. SEE SHIFT SUMMARY FOR FURTHER DETAILS.
--- NOTE | 2021-06-07 21:22 | NUR ---
SPOKE WITH DR. KUHN INFORMED OF DARK BROWN RESIDUAL OF 10CC WITH NO BOWEL TONES NOTED. TURNING TURNING PT HAD MORE DARK BROWN STOMACH CONTENTS SPEW OUT OF HIS MOUTH AND ONTO THE BEDDING. ORDERS TO STOP TUBE FEED FOR TONIGHT; REASSESS IN THE AM.
[2021-06-08 04:39] LABS: Hematocrit 43.1 % (37.0-53.0); Hemoglobin 14.6 g/dL (13.5-17.5); Mean Corpuscular HGB 27.7 pg (26.0-34.0); Mean Corpuscular HGB Conc 33.9 g/dL (31.5-36.5); Mean Corpuscular Volume 82 fL (80-100); NRBC ABSOLUTE 0.07 K/mm3 (0.00-0.02); NRBC Auto 0.4 /100 WBC (0.0-0.2); Platelet Count 214 K/mm3 (150-400); RDW Standard Deviation 44.3 fL (35.1-46.3); Red Blood Cell Count 5.27 M/mm3 (4.30-5.90); White Blood Cell Count 16.71 K/mm3 (4.00-11.30)
[2021-06-08 04:53] LABS: Prothrombin Time Results 29.3 Sec (9.7-11.5)
--- NOTE | 2021-06-08 05:01 | NUR ---
END OF SHIFT SUMMARY NO SIGNIFICANT CHANGES THIS SHIFT. VENT SETTINGS REMAIN UNCHANGED. PROPOFOL AT 15MCG/KG/MIN. PT WITHDRAWALS AND GRIMACES FROM NOXIOUS STIMULI; HOWEVER, DOES NOT MAKE ANY PURPOSEFUL MOVMENTS. GROSS MOTOR MOVEMENT NOTED TO BILATERAL FEET. WHEN ASKED TO OPEN EYES, PT WILL RAISE EYEBROWS, BUT UNABLE TO OPEN EYES. REMOVED FROM RESTRAINTS D/T NO MOVEMENT NOTED TO EXTREMITIES. PT REMAINS AFIB WITH RVR; RATE 100-120'S. LEVOPHED AT 22MCG/MIN, VASOPRESSIN 0.04 UNITS/MIN. AMIODARONE 0.5MCG/MIN. HEPARIN 20 UNITS/KG/HR. INSULIN AT 10 UNITS/HR. ART LINE AND CENTRAL LINE TO RIGHT GROIN. TRIALYSIS CATH TO RIGHT IJ. TUBE FEEDS REMAIN ON HOLD. FARLEY CATHETER IS PATENT AND DRAINING YELLOW URINE WITH SEDIMENT TO GRAVITY. NO BM THIS SHIFT; HOWEVER, BOWEL TONES ARE ABSENT. PT REMAINS VERY EDEMATOUS T/O. DEEP TISSUE INJURY WTH EXCORIATION NOTED TO SACRUM/COCCYX REGION; HYDROCOLLOID DRESSING APPLIED AFTER BATH. VSS, SEE FLOWSHEET. WILL CONTINUE TO MONITOR UNTIL REPORT IS HANDED OFF TO ONCOMING RN.
[2021-06-08 05:23] LABS: Albumin, Blood 1.8 g/dL (3.4-5.0); Albumin/Globulin Ratio 0.5 (0.8-1.8); Alk Phos 126 U/L (50-136); Anion Gap 14 mmol/L (6-16); Aspartate Aminotrans (AST/SGOT 564 U/L (12-37); Bilirubin, Direct 6.9 mg/dL (0.0-0.3); Bilirubin, Indirect 1.1 mg/dL (0.1-0.7); Blood Urea Nitrogen 68 mg/dL (8-24); Bun/Creatinine Ratio 10.6 (12.0-20.0); CO2, Blood 22 mmol/L (21-32); Calcium, Blood 6.9 mg/dL (8.5-10.1); Chloride, Blood 92 mmol/L (98-108); Globulin, Blood 3.8 g/dL (2.2-4.0); Glomerular Filtration Rate 9 (60-); Glucose, Blood 167 mg/dL (70-99); Magnesium, Blood 2.1 mg/dL (1.6-2.4); Phosphorus, Blood 6.4 mg/dL (2.5-4.9); Sodium, Blood 128 mmol/L (136-145); Total Protein, Blood 5.6 g/dL (6.4-8.2)
[2021-06-08 05:35] LABS: Alanine Aminotransfer (ALT/SGP 3684 U/L (12-78)
[2021-06-08 05:46] LABS: BAND PERCENT MAN 4 % (0-8); BASOPHILS PERCENT MAN 0 % (0-2); EOSINOPHILS PERCENT MAN 0 % (0-6); LYMPHOCYTES ABSOLUTE MAN 1.33 K/mm3 (0.84-5.20); LYMPHOCYTES PERCENT MAN 8 % (21-46); METAMYELOCYTE ABSOLUTE MAN 0.16 K/mm3 (0.00-0.00); METAMYELOCYTE PERCENT MAN 1 % (0-0); MONOCYTES PERCENT MAN 12 % (4-13); MYELOCYTE ABSOLUTE MAN 0.16 K/mm3 (0.00-0.00); MYELOCYTE PERCENT MAN 1 % (0-0); NEUTROPHILS ABSOLUTE MAN 13.03 K/mm3 (1.96-9.15); SEG NEUTROPHILS PERCENT MAN 74 % (41-73); TOTAL CELLS COUNTED 100
[2021-06-08 09:13] LABS: Hematocrit 44.1 % (37.0-53.0); Hemoglobin 14.9 g/dL (13.5-17.5)
--- NOTE | 2021-06-08 09:33 | NUR ---
AM NOTE.... ASSUMED CARE OF PT AT 0700, THE PT IS INTUBATED AND SEDATED ON PROPOFOL OF 15MCG, THIS WAS STOPPED ONCE THIS RN WAS IN THE ROOM TO ASSESS THE PT'S MENTATION/RESPONSE. THE PT'S VENT SETINGS ARE AC/PC 28/14/5/45% WITH O2 SATS >90%. L/S CLEAR AND DIM T/O. THE PT IS ON LEVOPHED GTT RUNNING AT 22MCG/MIN, VASOPRESSIN IS RUNNING AT 0.04UNITS/HR WITH MAPS >65. ART LINE IN PLACE, THIS WAS ZEROED AT THE START OF THIS SHIFT. THE PT IS IN AFIB W/RVR IN THE 100'S-130'S. THE PT HAS 2+ EDEMA NOTED TO HIS BLE, DEPENDENT EDEMA NOTED TO HIS BUE, SCROTUM/PENIS AND HIS TRUNK. DIALYSIS CATH NOTED TO THE PT'S RIGHT NECK. THE PT IS IN AN INSULIN GTT RUNNING AT 7UNITS/HR WITH HOURLY CBG CHECKS. HEPARIN GTT RUNNING AT 20 UNITS/KG/HR PER ORDERS. AMIO GTT RUNNING AT 0.5MG/HR. BT ABSENT DURING THIS ASSESSMENT, THE PT'S OG TUBE WAS CLAMPED SINCE APROX 2130 PER REPORT. RESIDUAL CHECKS BY THIS RN FOUND 450MLS OF BLACK/DARK REDISHBROWN GASTRIC CONTENTS, ICU PROVIDER AWARE, THIS WAS SENT TO THE LAB, NONE WAS RE-INSTILLED. AFTER APROX 30 MINS OF THE PROPOFOL BEING OFF THE PT WAS RESPONDING TO THIS RN'S VOICE, HE WAS ABLE TO MOVE BOTH LEGS PER COMMAND, HE OPENED HIS EYES BUT WAS UNABLE TO KEEP THEM OPEN, THE PT WAS ABLE TO SHAKE/NOD HIS HEAD APPROPRIATELY TO SIMPLE "YES NO" QUESTIONS. THE PT WAS UNABLE TO MOVE HIS BUE DURING THIS ASSESSMENT. THE PT'S FARLEY IS PATENT AND DRAINING TO GRAVITY. THE PT IS TO HAVE DIALYSIS TODAY. WILL CONTINUE TO MONITOR.
[2021-06-08 12:31] LABS: Vancomycin, Random 14.4 ug/mL
--- NOTE | 2021-06-08 18:44 | NUR ---
SHIFT SUMMARY.... THE PT'S SEDATION WAS OFF UNTIL APROX 1330 THIS AFTERNOON, THE PT WOULD OPEN HIS EYES TO VERBAL STIMULI, NOD OR SHAKE HIS HEAD APPROPRIATELY TO SIMPLE "YES/NO" QUESTIONS, THE PT WAS ABLE TO WRIGGLE HIS TOES BILATERALLY UPON COMMAND BUT HE WAS UNABLE TO MOVE HIS ARMS/HANDS. THE PT HAS NOT HAD A BM THIS SHIFT, A SUPPOSITORY WAS GIVEN PER ORDERS. THERE WERE NO RESIDUALS FROM THE OG TUBE AFTER 1400, PER DR. KUHN RESTART TUBE FEEDS AT 10MLS/HR AND REASSESS 06/09/21. THE PT IS CURRENTLY ON LEVOPHED AT 16MCG/MIN, THE VASOPRESSIN WAS OFF APROX 2 HOURS THEN RESTARTED. THE PT'S HEPARIN GTT IS RUNNING AT 20U/KG/HR. AMIO GTT CONTINUES AT 0.5MG/HR. THE PROPOFOL GTT WAS RESTARTED APROX 1400 D/T SEVERE AGITATION IT IS CURRENTLY RUNNING AT 20MCG. THE INSULIN GTT WAS STOPPED AND SUB Q INSULIN STARTED PER ORDERS. WILL CONTINUE TO MONITOR UNTIL REPORT IS GIVEN TO ONCOMING RN.
--- NOTE | 2021-06-08 19:20 | NUR ---
ASSUMED PT CARE AT 1915 PT INTUBATED AND SEDATED. TURNED OFF PROPOFOL UPON ASSUMPTION OF CARE TO ASSESS BASELINE NEURO STATUS. PT ABLE TO MAKE GROSS MOTOR MOVEMENTS WITH BILATERAL FEET, WELL ABLE TO MOVE HEAD SIDE TO SIDE. DOES OPEN EYES TO VERBAL STIMULI, NODS HEAD YES/NO TO QUESTIONS, MOVES TOES UPON COMMAND; HOWEVER, STILL UNABLE TO SQUEEZE HANDS, OR MOVE BILATERAL UPPER EXTREMITIES. WHEN ASKED IF PT WAS IN PAIN, HE NODDED "YES". VENT SETTINGS REMAIN AC/PC 28, PI 14, PEEP 5, FIO2 40%. RESP RATE 30. SPO2 >90%. PT IS AFIB WITH RVR; RATE 120-130'S. BP'S STABLE WITH LEVOPHED AT 16 MCG/MIN AND VASOPRESSIN AT 0.04 UNITS/MIN. ART LINE TO RIGHT FEMORAL SITE. CENTRAL LINE TO RIGHT FEMORAL SITE WELL WITH HEPARIN INFUSING AT 20 UNITS/KG/HR, AND BICARB IN 1/2 NS INFUSING AT 50ML/HR. TRIALYSIS CATH TO RIGHT IJ WITH AMIODARONE INFUSING AT 0.5MCG/MIN. PER REPORT PT RECEIVED DIALYSIS TODAY. PT REMAINS OLIGURIC WITH MINIMAL YELLOW URINE NOTED TO UROMETER. TUBE FEEDS STILL OFF AT THIS TIME; HOWEVER, NEW ORDERS TO RESTART TRICKLE FEEDS AT 10ML/HR. BILATERAL SOFT WRIST RESTRAINTS REMOVED AT THIS TIME D/T PT NOT ABLE TO MOVE EITHER UPPER EXTREMITY; WILL CONTINUE TO REASSESS THIS NEED FOR SAFETY AND PREVENTION OF SELF EXTUBATION. SEE SHIFT SUMMARY FOR FURTHER DETAILS.
--- NOTE | 2021-06-08 19:57 | NUR ---
CALL TO DR. KUHN RESIDUAL CHECK OF 300CC OF DARK BROWN/BLACK STOMACH CONTENTS. ORDERS TO HOLD TRICKLE FEED AND CONNECT TO LIS. HELD HS PER TUBE MEDS.
[2021-06-09 04:08] LABS: PCO2 Arterial 34.5 mmHg (35-45); PO2 Arterial 94.1 mmHg (80-100); pH Blood Arterial 7.41 (7.35-7.45)
[2021-06-09 04:50] LABS: Hematocrit 43.1 % (37.0-53.0); Hemoglobin 14.8 g/dL (13.5-17.5); Mean Corpuscular HGB 27.4 pg (26.0-34.0); Mean Corpuscular HGB Conc 34.3 g/dL (31.5-36.5); Mean Corpuscular Volume 80 fL (80-100); Mean Platelet Volume 11.2 fL (9.1-12.4); NRBC ABSOLUTE 0.14 K/mm3 (0.00-0.02); NRBC Auto 0.8 /100 WBC (0.0-0.2); Platelet Count 187 K/mm3 (150-400); RDW Coefficient Variation 15.1 % (11.7-14.2); RDW Standard Deviation 43.2 fL (35.1-46.3)
--- NOTE | 2021-06-09 04:54 | NUR ---
END OF SHIFT SUMMARY NO SIGNIFICANT CHANGES THIS SHIFT. VENT SETTINGS REMAIN UNCHANGED FROM START OF SHIFT. PROPOFOL REMAINS AT 20MCG/KG/MIN WITH UNCHANGED NEURO ASSESSMENT. LEVOPHED AT 16 MCG/MIN, VASOPRESSIN AT 0.04 UNITS/MIN, HEPARIN AT 20 UNITS/KG/HR, AMIODARONE AT 0.5 MCG/MIN, BICARB AT 50ML/HR, AND NS TKO. DRESSING TO CENTRAL LINE AND ART LINE AT RIGHT GROIN SITE HAS BEEN CHANGED D/T SATURATION OF LEAKING SEROUS FLUID. PT REMAINS VERY EDEMATOUS WITH SCROTAL AND PENILE EDEMA CURRENTLY THE WORST. PT CONVERTED BACK TO NSR-SINUS TACHYCARDIA AROUND 2330 WITH RATE 90-100. FARLEY CATHETER REMAINS PATENT AND DRAINING MINIMAL AMOUNTS OF URINE TO GRAVITY. TMAX 100.9 THIS SHIFT. VSS, SEE FLOWSHEET. WOUND TO COCCYX/SACRUM APPEARS TO BE WORSE TODAY; THEREFORE, REMOVED HYDROCOLLOID DRESSING AND APPLIED MEPITEL TO WOUND BED AND COVERED WITH FOAM/PROTECTIVE DRESSING. WILL UPDATE NURSING ORDERS TO CHANGE DAILY. WILL CONTINUE TO MONITOR UNTIL REPORT IS HANDED OFF TO ONCOMING RN.
[2021-06-09 05:31] LABS: BAND PERCENT MAN 8 % (0-8); BASOPHILS PERCENT MAN 0 % (0-2); EOSINOPHILS PERCENT MAN 0 % (0-6); LYMPHOCYTES ABSOLUTE MAN 1.19 K/mm3 (0.84-5.20); LYMPHOCYTES PERCENT MAN 7 % (21-46); METAMYELOCYTE ABSOLUTE MAN 0.17 K/mm3 (0.00-0.00); METAMYELOCYTE PERCENT MAN 1 % (0-0); MONOCYTES ABSOLUTE MAN 0.85 K/mm3 (0.16-1.47); MONOCYTES PERCENT MAN 5 % (4-13); MYELOCYTE ABSOLUTE MAN 0.85 K/mm3 (0.00-0.00); MYELOCYTE PERCENT MAN 5 % (0-0); NEUTROPHILS ABSOLUTE MAN 13.94 K/mm3 (1.96-9.15); SEG NEUTROPHILS PERCENT MAN 74 % (41-73); TOTAL CELLS COUNTED 100
[2021-06-09 05:57] LABS: Magnesium, Blood 2.4 mg/dL (1.6-2.4)
[2021-06-09 06:06] LABS: Albumin, Blood 1.8 g/dL (3.4-5.0); Albumin/Globulin Ratio 0.6 (0.8-1.8); Bilirubin, Direct 8.1 mg/dL (0.0-0.3); Bilirubin, Indirect 1.2 mg/dL (0.1-0.7); Bilirubin, Total 9.3 mg/dL (0.1-1.0); Calcium, Blood 6.7 mg/dL (8.5-10.1); Globulin, Blood 3.2 g/dL (2.2-4.0); Phosphorus, Blood 8.8 mg/dL (2.5-4.9); Potassium, Blood 6.6 mmol/L (3.5-5.5)
--- NOTE | 2021-06-09 08:24 | NUR ---
AM NOTE... ASSUMED CARE OF PT AT 0700, THE PT IS INTUBATED AND SEDATED, VENT SETTINGS ARE AC/PC: 28/14/5/40% WITH O2 SATS >90%. L/S DIM T/O, MORE DIM THAN YESTERDAY'S ASSESSMENTS. NO SECRETIONS WERE SUCTIONED VIA ET TUBE DURING THIS ASSESSMENT. THE PT IS IN NSR IN THE 90'S, LEVOPHED WAS SET TO 14MCG/MIN AT THE START OF THIS SHIFT, THIS WAS TITRATED TO 12MCG/MIN. VASOPRESSIN IS RUNNING AT 0.04UNTIS/HR TO KEEP THE MAPS >60. ART LINE IN THE RIGHT FEMORAL, ZEROED DURING AM ASSESSMENT. CENTRAL LINE TO THE RIGHT GRION AREA WELL, THE DRESSING IS COVERING BOTH SITES, THE DRESSING WAS CHANGED DURING NOC SHIFT BUT D/T SEROUS DRAINAGE FROM THE SITES THE DRESSING IS SLIGHTLY DAMP. 2+ PITTING EDEMA NOTED TO THE PT'S BLE/FEET, THE PT'S SCROTUM AND PENIS IS ALSO VERY EDEMATOUS. THE PT'S BUE AND TORSO ALSO HAVE DEPENDENT EDEMA. PULSES TO THE BLE ARE FOUND WITH DOPPLER, FEET AND TOES ARE CYANNOTIC, CAP REFILL IS >3 SECONDS. BT ARE ABSENT, ABD HAS MODERATE AMOUNT OF DISTENTION, IS FIRM AND THE PT GRIMACES ALOT WITH PALPATION. TEMP FARLEY IS PATENT AND DRAINING SCANT AMOUNT OF YELLOW URINE TO GRAVITY, PLAN IS TO DO DIALYSIS THIS AM AGAIN. DRESSING TO THE PT'S COCCYX IS C/D/I AT THIS TIME, PURPLE BRUISE IS NOTED TO UPPER AREA OF THE PT'S RIGHT EAR, THE O2 PROBE WAS NOT ON THE PT'S RIGHT EAR YESTERDAY BUT THE PT'S HEAD WAS LEANING TO THAT SIDE DESPITE Q2 TURNS. WILL CONTINUE TO MONITOR THAT AREA. WILL CONTINUE TO MONITOR.
--- NOTE | 2021-06-09 08:41 | NUR ---
PT UPDATE.... AT 0815 PT CONVERTED FROM NSR IN THE 90'S TO AFIB IN THE 100'S-120'S. BP CONTINUES TO BE STABLE ON LEVOPHED AT 10MCG/MIN AND VASOPRESSIN. PROVIDER AWARE. WILL CONTINUE TO MONITOR.
[2021-06-09 15:27] LABS: Albumin, Blood 1.7 g/dL (3.4-5.0); Anion Gap 14 mmol/L (6-16); Blood Urea Nitrogen 79 mg/dL (8-24); Bun/Creatinine Ratio 12.7 (12.0-20.0); CO2, Blood 23 mmol/L (21-32); Calcium, Blood 7.6 mg/dL (8.5-10.1); Chloride, Blood 94 mmol/L (98-108); Creatinine, Blood 6.23 mg/dL (0.60-1.20); Glomerular Filtration Rate 9 (60-); Glucose, Blood 255 mg/dL (70-99); Potassium, Blood 5.7 mmol/L (3.5-5.5); Sodium, Blood 131 mmol/L (136-145)
[2021-06-09 15:29] LABS: Phosphorus, Blood 8.4 mg/dL (2.5-4.9)
--- NOTE | 2021-06-09 15:37 | NUR ---
PT UPDATE.... TUBE FEEDS RESTARTED PER DR. KUHN AT 1530, THE PT'S OG TUBE WAS SET TO LOW INT SUCTION, THERE WAS 200MLS OF DARK BROWN GASTRIC FLUID THAT WAS REMOVED SINCE THE START OF THIS SHIFT AT 0700. THE PT HAD A SMALL LOOSE BROWN BM THIS AFTERNOON. WILL CONTINUE TO MONITOR.
--- NOTE | 2021-06-09 19:01 | NUR ---
SHIFT SUMMARY.... NO ACUTE NEGATIVE CHANGES NOTED THIS SHIFT. THE PT HAD DIALYSIS AND TOLERATED THAT WELL. THE VASOPRESSIN HAS BEEN TURNED OFF AND THE LEVOPHED IS RUNNING AT 6MCG/MIN WITH MAPS >60. THE PT HAD A SMALL LOOSE BROWN BM THIS SHIFT, TUBE FEEDS WER RESTARTED AT 10MLS/HR PER DR. KUHN. THE PT'S DAUGHTER WAS AT THE BEDSIDE DURING VISITING HOURS, SHE WAS UPDATED ON THE PT'S CONDITION AND THE PLAN OF CARE. THE PT'S ART LINE AND R GROIN CENTRAL LINE DRESSING CONTINUES TO LEAK SEROUS FLUIDS, THE DRESSING WAS CHANGED ONCE EARLY IN THIS SHIFT. MEPILEX TO THE PT'S COCCYX WOUND WAS CHANGED. Q2 TURNS WERE DONE WITH T/O THIS SHIFT. THE PT'S FARLEY IS PATENT AND DRAINING SCANT URINE TO GRAVITY. THE PT WAS ABLE TO FOLLOW COMMANDS DURING THE SEDATION VACATION THIS SHIFT. THE HEPARIN GTT IS RUNNING AT 17U/KG/HR PER ORDERS, THIS WAS STOPPED THIS AFTERNOON FOR 2 HRS D/T A CRITICALLY HIGH PTT, THEN RESTARTED PER PHARMACY. WILL CONTINUE TO MONITOR UNTIL REPORT IS GIVEN TO ONCOMING RN.
--- NOTE | 2021-06-09 22:43 | NUR ---
ASSUMED PT CARE FROM NEVAEH FARFAN AT 1915 PT REMAINS INTUBATED AND SEDATED. PROPOFOL AT 20MCG/KG/MIN. VENT SETTINGS AC/PC 28, PI 14, PEEP 5, FIO2 40%, RESP RATE 30'S. SPO2 >90%. ART LINE TO RIGHT FEMORAL SITE THAT HAS BEEN ZERO'D. PT IS AFIB WITH RVR; RATE 100-120'S. BP'S STABLE, SEE FLOWSHEET. CENTRAL LINE ALSO TO RIGHT FEMORAL SITE WITH LEVOPHED AT 5MCG/MIN, HEPARIN AT 18 UNITS/KG/HR, AND BICARB AT 50ML/HR. TRIALYSIS CATH TO RIGHT IJ INFUSING AMIODARONE AT 0.5MCG/MIN. PT CONTINUES TO PUT OUT MINIMAL AMOUNTS OF URINE OUTPUT. PT REMAINS VERY EDEMATOUS WITH SEVERE SCROTAL AND PENILE EDEMA. TRICKLE FEEDS OF VHP AT 10ML/HR; 275CC RESIDUAL; HOWEVER, PT WAS NOTED TO HAVE HYPOACTIVE BTX4. SEE SHIFT SUMMARY FOR FURTHER DETAILS.
[2021-06-10 05:00] LABS: Hematocrit 39.7 % (37.0-53.0); Hemoglobin 13.9 g/dL (13.5-17.5); Mean Corpuscular HGB 27.7 pg (26.0-34.0); Mean Corpuscular Volume 79 fL (80-100); Mean Platelet Volume 11.3 fL (9.1-12.4); NRBC ABSOLUTE 0.08 K/mm3 (0.00-0.02); NRBC Auto 0.5 /100 WBC (0.0-0.2); Platelet Count 153 K/mm3 (150-400); RDW Coefficient Variation 15.1 % (11.7-14.2); RDW Standard Deviation 42.5 fL (35.1-46.3); Red Blood Cell Count 5.02 M/mm3 (4.30-5.90); White Blood Cell Count 14.87 K/mm3 (4.00-11.30)
[2021-06-10 05:17] LABS: International Normalized Ratio 1.85; Prothrombin Time Results 18.7 Sec (9.7-11.5)
[2021-06-10 05:28] LABS: PCO2 Arterial 36.3 mmHg (35-45); PO2 Arterial 78.2 mmHg (80-100); pH Blood Arterial 7.43 (7.35-7.45)
[2021-06-10 05:32] LABS: Magnesium, Blood 2.7 mg/dL (1.6-2.4)
--- NOTE | 2021-06-10 05:43 | NUR ---
END OF SHIFT SUMMARY PT REMAINS OFF PROPOFOL AT THIS TIME FOR SEDATION VACATION/WEANING TRIAL. RT SWITCHED PT FROM AC/PC TO SPONTANEOUS WITH PRESSURE SUPPORT OF 10/5; FIO2 45%. RESP RATE 30-40'S. LOW VT OF 250; HIGHEST 800. PT ABLE TO OPEN EYES TO VERBAL STIMULI, FOLLOW COMMANDS, AND NOD HEAD YES/NO TO QUESTIONS. POSTIIVE GAG/COUGH REFLEX. PT REMAINS TOO WEAK TO MOVE BUE'S; THEREFORE, RESTRAINTS HAVE REMAINED OFF. ARTERIAL LINE AND CENTRAL LINE DRESSING TO RIGHT GROIN HAS BEEN CHANGED THIS SHIFT. LEVOPHED IS CURRENTLY OFF. AMIODARONE INFUSING CONTINUOUSLY AT 0.5MCG/MIN. HEPARIN AT 18 UNITS/KG/HR. BICARB AT 50MLS/HR. TRIALYSIS CATH TO RIGHT IJ WITH DRESSING INTACT. VHP INFUSING AT TRICKLE FEED RATE OF 10ML/HR; NO RESIDUALS ON LAST ASSESSMENT; BOWEL TONES ARE HYPOACTIVE. FARLEY CATHETER IS PATENT AND DRAINING MINIMAL AMOUNTS OF YELLOW URINE TO GRAVITY. WILL CONTINUE TO MONITOR UNTIL REPORT IS HANDED OFF TO ONCOMING RN.
[2021-06-10 05:49] LABS: Albumin, Blood 1.5 g/dL (3.4-5.0); Albumin/Globulin Ratio 0.4 (0.8-1.8); BAND PERCENT MAN 4 % (0-8); BASOPHILS PERCENT MAN 0 % (0-2); Bun/Creatinine Ratio 14.6 (12.0-20.0); Calcium, Blood 7.3 mg/dL (8.5-10.1); Creatinine, Blood 7.24 mg/dL (0.60-1.20); EOSINOPHILS PERCENT MAN 0 % (0-6); Globulin, Blood 3.6 g/dL (2.2-4.0); LYMPHOCYTES ABSOLUTE MAN 0.59 K/mm3 (0.84-5.20); LYMPHOCYTES PERCENT MAN 4 % (21-46); METAMYELOCYTE ABSOLUTE MAN 0.14 K/mm3 (0.00-0.00); METAMYELOCYTE PERCENT MAN 1 % (0-0); MONOCYTES ABSOLUTE MAN 1.33 K/mm3 (0.16-1.47); MONOCYTES PERCENT MAN 9 % (4-13); MYELOCYTE ABSOLUTE MAN 0.74 K/mm3 (0.00-0.00); MYELOCYTE PERCENT MAN 5 % (0-0); NEUTROPHILS ABSOLUTE MAN 12.04 K/mm3 (1.96-9.15); Potassium, Blood 6.4 mmol/L (3.5-5.5); SEG NEUTROPHILS PERCENT MAN 77 % (41-73); TOTAL CELLS COUNTED 100; Total Protein, Blood 5.1 g/dL (6.4-8.2)
--- NOTE | 2021-06-10 08:38 | NUR ---
AM NOTE... ASSUMED CARE OF PT AT 0700, THE PT IS INTUBATED, CURRENTLY THE PT IS ON SPONTAIOUS AT 10/5 AND 45% WITH O2 SATS >90%, L/S COARSE T/O MORE SO ON THE LEFT THAN THE RIGHT AND DIM IN THE BASES, THIS IS A CHANGE FROM THE CLEAR/DIM FROM YESTERDAY. THE PT IS CURRENTLY NOT ON ANY SEDATION, HE IS ABLE TO OPEN HIS EYES AND FOLLOW COMMANDS. THERE IS A MODERATE AMOUNT OF THICK PIPER SECRETIONS SUCTIONED FROM THE ET TUBE DURING AM ASSESSMENT, THIS IS A CHANGE FROM YESTERDAY WELL, SCANT TO NONE SECRETIONS WERE NOTED YESTERDAY. THE PT IS IN AFIB IN THE 100'S-120'S BP STABLE, ART LINE IN THE RIGHT GROIN IS SHOWING MAPS >65. BLE PULSES FOUND BY DOPPLER, THE PT'S BLE ARE WARM AND PINK THIS AM, YESTERDAY THEY WERE COOL AND CYANNOTIC. 2+ PITTING EDEMA NOTED TO THE BLE, DEPENDENT EDEMA NOTED TO THE BUE, TORSO AND SCROTUM/PENIS. BT PRESENT AND HYPOACTIVE, ABD HAS MILD DISTENTION, IS SOFT BUT TENDER TO PALP. OG TUBE IS RUNNING TUBE FEEDS AT 10MLS/HR WITH Q4 H2O FLUSHES OF 30MLS. 100MLS OF RESIDUALS NOTED AND REINSTILLED. TEMP FARLEY IS PATENT AND DRAINING SCANT AMOUNT OF URINE TO GRAVITY. PLAN IS TO HAVE THE PT GET DIALYSIS THIS AM. WILL CONTIUE TO MONITOR.
[2021-06-10 17:20] LABS: Albumin, Blood 1.7 g/dL (3.4-5.0); Anion Gap 11 mmol/L (6-16); Blood Urea Nitrogen 97 mg/dL (8-24); Bun/Creatinine Ratio 14.7 (12.0-20.0); CO2, Blood 24 mmol/L (21-32); Calcium, Blood 7.7 mg/dL (8.5-10.1); Chloride, Blood 97 mmol/L (98-108); Creatinine, Blood 6.61 mg/dL (0.60-1.20); Glomerular Filtration Rate 9 (60-); Glucose, Blood 176 mg/dL (70-99); Phosphorus, Blood 8.7 mg/dL (2.5-4.9); Sodium, Blood 132 mmol/L (136-145)
[2021-06-10 19:20] LABS: Bun/Creatinine Ratio 15.9 (12.0-20.0); Calcium, Blood 6.6 mg/dL (8.5-10.1); Creatinine, Blood 5.93 mg/dL (0.60-1.20); Potassium, Blood 5.3 mmol/L (3.5-5.5)
--- NOTE | 2021-06-10 19:24 | NUR ---
SHIFT SUMMARY.... NO ACUTE NEGAIVE CHANGES NOTED THIS SHIFT, THE PT HAS BEEN ON SPONTAINIOUS OF 10/5 AND 40% WITH O2 SATS >90% T/O THE SHFIT. THE PT HAS NOT BEEN ON SEDATION AT ALL THIS SHIFT BUT HAS BEEN GETTING IV FENTANYL PUSHES PRN FOR PAIN. THE PT HAS BEEN TURNED Q2 HRS THIS SHIFT. THE DRESSING TO THE PT'S COCCYX WAS CHANGED THIS SHIFT WELL. THE PT'S FARLEY IS PATENT AND DRAINED 110MLS TO GRAVITY. THE PT'S TUBE FEEDS ARE RUNNING AT 10MLS/HR WITH THE LAST RESIDUAL WAS 175MLS. THE PT'S HEPARIN GTT IS RUNNING AT 18U/KG/HR PER ORDERS, AMIO GTT IS AT 0.5MG, THE BICARB GTT WAS INCREASED FROM 50MLS/HR TO 100MLS/HR. WILL CONTINUE TO MONITOR UNTIL REPORT IS GIVEN TO ONCOMING RN.
--- NOTE | 2021-06-10 20:30 | NUR ---
ASSESSMENT/ASSUMED CARE PT INTUBATED AND ON [facility] VENT. PT AWAKE AND FOLLOWING INSTRUCTIONS. VENT SETTINGS SPON 10/5 FIO2 40%. PT NODS YES IF ASKED IF TRIED AND WANT GO BACK ON VENT. RT NOTIFIED AND CHANGED VENT SETTINGS TO AC/PC 28 PI 14 TI 1.0 PEEP 5 FIO2 40%. PT RESTARTED ON SEDATION PROPOFOL AT 25 MCQ/KG/MIN. LUNGS COARSE AND DECREASED IN THE BASES. SUCTIONED SMALL AMT THICK PIPER VIA ET TUBE. HEART RATE IRREGULAR-AFIB 110-120'S. BP STABLE VIA NEIL TO RIGHT FEMORAL. NEIL ZEROED. BT VERY HYPOACTIVE. ABD ROUND. OG WITH TUBE FEED VITAL HP AT 10 ML/HR, WATER 30 ML Q4HR. RESIDUAL 210 ML REFED. DIALYSIS CATH WITH IV PIGTAIL TO RIGHT IJ, DRSG INTACT. AMIODARONE AT 0.5 MG/MIN VIA IV PIGTAIL. CENTRAL LINE TO RIGHT GROIN WITH HEPARIN 18 UNITS/KG/HR DECREASED TO 17 UNITS/KG/HR PER PHARMACY, 1/2NS NA BICARB AT 100 ML/HR, NS AT 10 ML/HR, AND PROPOFOL AT 25 MCQ/KG/MIN. NEIL AND CENTRAL LINE TO RIGHT FEMORAL LEAKING SEROUS FLUID, WILL CHANGE DRSG. PT MOVING FEET AND LEG BUT NOT MOVING HANDS. FARLEY CATH PATENT DRAINING SMALL AMT YELLOW URINE. BILAT SOFT WRIST RESTRAINTS ON. COCCYX DRSG INTACT.
[2021-06-11 03:19] LABS: Hematocrit 39.8 % (37.0-53.0); Hemoglobin 13.8 g/dL (13.5-17.5); Mean Corpuscular HGB 27.3 pg (26.0-34.0); Mean Corpuscular HGB Conc 34.7 g/dL (31.5-36.5); Mean Corpuscular Volume 79 fL (80-100); Mean Platelet Volume 11.2 fL (9.1-12.4); NRBC ABSOLUTE 0.07 K/mm3 (0.00-0.02); NRBC Auto 0.4 /100 WBC (0.0-0.2); Platelet Count 144 K/mm3 (150-400); RDW Coefficient Variation 15.7 % (11.7-14.2); RDW Standard Deviation 43.3 fL (35.1-46.3); Red Blood Cell Count 5.05 M/mm3 (4.30-5.90); White Blood Cell Count 18.45 K/mm3 (4.00-11.30)
[2021-06-11 03:34] LABS: Magnesium, Blood 2.7 mg/dL (1.6-2.4)
[2021-06-11 03:41] LABS: BAND PERCENT MAN 4 % (0-8); BASOPHILS PERCENT MAN 0 % (0-2); EOSINOPHILS PERCENT MAN 0 % (0-6); LYMPHOCYTES ABSOLUTE MAN 0.73 K/mm3 (0.84-5.20); LYMPHOCYTES PERCENT MAN 4 % (21-46); METAMYELOCYTE ABSOLUTE MAN 0.18 K/mm3 (0.00-0.00); METAMYELOCYTE PERCENT MAN 1 % (0-0); MONOCYTES ABSOLUTE MAN 1.84 K/mm3 (0.16-1.47); MONOCYTES PERCENT MAN 10 % (4-13); MYELOCYTE ABSOLUTE MAN 0.36 K/mm3 (0.00-0.00); MYELOCYTE PERCENT MAN 2 % (0-0); NEUTROPHILS ABSOLUTE MAN 15.31 K/mm3 (1.96-9.15); SEG NEUTROPHILS PERCENT MAN 79 % (41-73); TOTAL CELLS COUNTED 100
[2021-06-11 03:56] LABS: Albumin, Blood 1.6 g/dL (3.4-5.0); Anion Gap 15 mmol/L (6-16); Blood Urea Nitrogen 127 mg/dL (8-24); Bun/Creatinine Ratio 17.7 (12.0-20.0); CO2, Blood 22 mmol/L (21-32); Calcium, Blood 7.1 mg/dL (8.5-10.1); Chloride, Blood 95 mmol/L (98-108); Creatinine, Blood 7.19 mg/dL (0.60-1.20); Glomerular Filtration Rate 8 (60-); Glucose, Blood 220 mg/dL (70-99); Phosphorus, Blood 9.4 mg/dL (2.5-4.9); Sodium, Blood 132 mmol/L (136-145)
--- NOTE | 2021-06-11 06:31 | NUR ---
SHIFT SUMMARY PT CONT INTUBATED AND ON [facility] VENT. PT CHANGED FROM SPONT TO AC/PC WHEN PT REPORTED THAT HE WAS TIRED AND WANTED TO GO BACK ON THE VENT. VENT SETTINGS AC/PC 28 PI 14 TI 1.0 PEEP 5 FIO2 40%. SUCTIONED SMALL AMT VIA ET TUBE. HEART RATE DOWN TO THE 80-100'S. BP STABLE VIA NEIL. NEIL/CENTRAL LINE CHANGED. PT TURNED Q2HR. HEPARIN GTT DECREASED DURING THE NIGHT CURRENTLY AT 16 UNITS/KG/HR. NEXT PTT AT 1000. DR KIMBALL NOTIFIED REGARDING CRITICAL LABS. PT TO HAVE DIALYSIS TODAY. DR KIMBALL INTO SEE PT. DIALYSIS CATH TO RIGHT IJ DRSG CHANGED. TUBE FEED AT 10 ML/HR. REPORT TO ON COMING NURSE
--- NOTE | 2021-06-11 12:54 | NUR ---
REASSESSMENT PT REMAINS INTUBATED AND SEDATED. HE RECEIVED DIALYSIS THIS MORNING AND TOLERATED IT WELL. LUNGS ARE CLEAR CURRENTLY. REMAINS AFIB, BP STABLE. GENERALIZED 2+ EDEMA, WEEPING FROM ANY BREAK IN THE SKIN. 2 BMS THIS AM, DRESSING OVER COCCYX WOUND CHANGED EACH TIME. FARLEY WITH SCANT AMT OF URINE. SPOKE WITH PT'S DAUGHTER OVER TELEPHONE AND PROVIDED UPDATE THIS MORNING.
--- NOTE | 2021-06-11 17:40 | NUR ---
SHIFT SUMMARY PT REMAINS INTUBATED. SEDATION TURNED OFF AT 1518 AND PT IS OPENING HIS EYES, WILL WIGGLE HIS TOES WHEN ASKED, BUT IS NOT MOVING HIS UPPER EXTREMITIES WHEN ASKED. HIS LUNGS ARE CLEAR. REMAINS AFIB, BP STABLE. DOBUTAMINE STARTED AT SET RATE PER DR. KEVIN'S ORDERS. PT HAVING LIQUID BLACK STOOLS, RECTAL TUBE PLACED THIS EVENING PT HAS A SORE ON HIS COCCYX AND HE IS NOW RECEIVING KAYEXALATE TO HELP HIS POTASSIUM. PT IS TOLERATING HIS TUBE FEED WITH 10-20ML OF RESIDUAL ON EACH CHECK. TUBE FEED SWITCHED TO NEPRO PER DIETARY AND RATE INCREASED BACK TO 25ML/HR SINCE HE HAS HAD MINIMAL RESIDUALS TODAY. FARLEY PUT 35ML OF URINE THROUGHOUT THE SHIFT. REMAISN EDEMATOUS, ELEVATING EXTREMITIES ABLE. PT'S SISTER VISITED THIS AFTERNOON AND SHE WAS UPDATED ON PT'S CARE. CONTINUING TO MONITOR.
--- NOTE | 2021-06-11 20:00 | NUR ---
PATIENT INTUBATED AWAKE OCCASIONALLY SHACKING HEAD BACK ON FORTH, WHEN ASKED IF HE WAS ANXIOUS AND WANTING HELP SLEEPING PATIENT NODDING YES, PROPOFOL RESTARTED AT [address] WITH VENT AC PC RATE 28 IP 14 PEEP 5 FIO2 40% SUCTIONING THICK PIPER PLUGS VIA ETT. CLEAR ORAL SECRETIONS. DOBUTAMINE DRIP 2.5, AND AMIODARONE 0.5, SODIUM BICARB DRIP 100 CC/HR, HEPARIN DRIP 15 UNITS PER PHARMACY. OG IN PLACE WITH TUBE FEEDING AT GOAL RATE. RECTAL TUBE IN PLACE DRAINING BLACK LIQUID STOOL.
[2021-06-12 04:32] LABS: Hematocrit 38.7 % (37.0-53.0); Hemoglobin 13.8 g/dL (13.5-17.5); Mean Corpuscular HGB 27.5 pg (26.0-34.0); Mean Corpuscular HGB Conc 35.7 g/dL (31.5-36.5); Mean Corpuscular Volume 77 fL (80-100); Mean Platelet Volume 11.1 fL (9.1-12.4); NRBC ABSOLUTE 0.05 K/mm3 (0.00-0.02); NRBC Auto 0.2 /100 WBC (0.0-0.2); Platelet Count 127 K/mm3 (150-400); RDW Coefficient Variation 15.8 % (11.7-14.2); RDW Standard Deviation 41.7 fL (35.1-46.3); Red Blood Cell Count 5.02 M/mm3 (4.30-5.90); White Blood Cell Count 20.65 K/mm3 (4.00-11.30)
[2021-06-12 04:49] LABS: Magnesium, Blood 2.8 mg/dL (1.6-2.4)
[2021-06-12 05:37] LABS: Albumin, Blood 1.5 g/dL (3.4-5.0); Anion Gap 17 mmol/L (6-16); Blood Urea Nitrogen 141 mg/dL (8-24); Bun/Creatinine Ratio 19.9 (12.0-20.0); CO2, Blood 23 mmol/L (21-32); Calcium, Blood 6.5 mg/dL (8.5-10.1); Chloride, Blood 94 mmol/L (98-108); Creatinine, Blood 7.07 mg/dL (0.60-1.20); Glomerular Filtration Rate 8 (60-); Glucose, Blood 251 mg/dL (70-99); Phosphorus, Blood 8.9 mg/dL (2.5-4.9); Potassium, Blood 5.3 mmol/L (3.5-5.5); Sodium, Blood 134 mmol/L (136-145)
[2021-06-12 05:41] LABS: BAND PERCENT MAN 1 % (0-8); BASOPHILS PERCENT MAN 0 % (0-2); EOSINOPHILS PERCENT MAN 0 % (0-6); MONOCYTES ABSOLUTE MAN 0.61 K/mm3 (0.16-1.47); MONOCYTES PERCENT MAN 3 % (4-13); MYELOCYTE ABSOLUTE MAN 0.61 K/mm3 (0.00-0.00); MYELOCYTE PERCENT MAN 3 % (0-0); NEUTROPHILS ABSOLUTE MAN 19.41 K/mm3 (1.96-9.15); SEG NEUTROPHILS PERCENT MAN 93 % (41-73); TOTAL CELLS COUNTED 100
--- NOTE | 2021-06-12 07:00 | NUR ---
SUMMARY PATIENT REMAINS INTUBATED AND SEDATED WITH PROPOFOL 25 MCG AWAKENS EASILY, GENERALIZED WEAKNESS, NODDING YES AND NO TO QUESTIONS. SLIGHT MOVEMENT TO EXTREMITIES. ETT IN PALACE WITH VENT AC PC RATE 28, IP 14, PEEP 5, FIO2 40% SUCTIONING LARGE AMT OF THICK PIPER SPUTUM T/O NIGHT. OG REMAINS IN PLACE WITH NEPRO AT GOAL RATE OF 25 CC/HR WITH MIN RESIDUALS T/O NIGHT. RECTAL TUBE IN PLACE DRAINING BLACK/GREEN LIQUID STOOL. DRESSING TO HD DIALYSIS LINE AND CENTRAL LINE ART LINE CHANGED DURING THE NIGHT. AMIODARONE, AND DOBUTAMINE DRIPS CONTINUE. HEPARIN DRIP PER PHARMACY. DOCTOR KIMBALL IN TO SEE PATIENT AND AWARE OF THIS AM LABS.
--- NOTE | 2021-06-12 08:40 | NUR ---
ASSUMED CARE PT. REMAINS SEDATED AND INTUBATED, PROPOFOL INFUSING AT 25MCG/KG/MIN. PT. VENT SETTINGS CURRENTLY AC/PC SP 14, PEEP 5, 40% FIO2 WITH RATE 28. PT CURRENTLY HAS TVS OF 500S, WITH RATE OF 29 AT THIS TIME. PT. HAS THICK PIPER SECRETIONS FROM ETT. PT. HAS COARSE LS T/O. HR 90S, REMAINS ON AMIO GTT AT 0.5MG/MIN AND DOBUTAMINE AT 2.5MCG/KG/MIN, AND HEPARIN GTT INFUSING AT 15U/HR PT CONTINUES WITH ARTLINE IN PLACE TO RIGHT GROIN. ZEROED THIS AM. BP WNL. PT. HAS OG TUBE IN PLACE INFUSING NEPRO GTT AT 25ML/HR, RESIDUAL OF 10ML THIS AM. RECTAL TUBE IN PLACE DRAINING LIQUID GREEN/BLACK STOOL. PT. HAS FARLEY TEMP PROBE DRAINING MINIMAL AMOUNT OF CLEAR YELLOW URINE TO GRAVITY. SCROTUM VERY SWOLLEN, WITH 3+ EDEMA T/O EXTREM. NO PLANS FOR DIALYSIS THIS AM PER BOTANY TECHNICIAN.BILAT WRIST RESTRAINTS IN PLACE.
--- NOTE | 2021-06-12 12:24 | NUR ---
REASSESSMENT PT. REPOSITIONED HIGH UP ON RIGHT SIDE. DRESSING REPLACED TO BUTTOCKS, RECTAL TUBE REPOSITIONED. PT. CONTINUES WITH LIQUID STOOL. DRY FLOW REPLACED. PT. SCROTUM PLACED IN SLING WITH PILLOW CASE DUE TO SWELLING. DRESSING REPLACED TO ART LINE/ CENTRAL LINE IN RIGHT GROIN.
--- NOTE | 2021-06-12 18:07 | NUR ---
SHIFT SUMMARY PT. REMAINS SEDATED AND INTUBATED. MINIMAL URINE OUPUT THIS SHIFT, PT DID NOT HAVE DIALYSIS TODAY. PT. REMAINS ON DOBUTAMINE AT SET RATE. PT CONITNUES WITH LIQUID STOOL IN RECTAL TUBE. TOLERATING TF WITH MINIMAL RESIDUALS. VSS, REPORT TO ONCOMING RN.
--- NOTE | 2021-06-12 21:24 | NUR ---
ASSUMED CARE AT 1900 PATIENT IS INTUBATED AND SEDATED ON PROPOFOL. MOVES HEAD SIDE TO SIDE, NO EYE OPENING OR MOVEMENT OF EXTREMETIES AT THIS TIME. 02 SATS 94% ON VENT AC PC RATE 28, PI 14, PEEP 5, FI02 40%. LUNGS COARSE TO DIMINISHED. HR A.FIB 90s-120, AMIO INF CONTINUOUS. BP STABLE, ART LINE IN PLACE. CONTINUOUS TUBE FEED OF NEPRO AT GOAL RATE OF 25MLS/HR WITH Q4 HOURS FLUSHES OF 30 MLS. 5 MLS RISIDUAL. FARLEY WITH MINIMAL OUTPUT. HEPARIN INF. DEEP PITTING/WEEPING EDEMA T/O. REPOSITIONED AND WRIST RESTRAINTS IN PLACE TO PROTECT LINES AND TUBES. SEE SHIFT ASSESSMENT FOR MORE DETAIL.
[2021-06-13 04:41] LABS: Hematocrit 39.5 % (37.0-53.0); Hemoglobin 13.9 g/dL (13.5-17.5); Mean Corpuscular HGB 27.4 pg (26.0-34.0); Mean Corpuscular HGB Conc 35.2 g/dL (31.5-36.5); Mean Corpuscular Volume 78 fL (80-100); Mean Platelet Volume 11.5 fL (9.1-12.4); NRBC ABSOLUTE 0.04 K/mm3 (0.00-0.02); NRBC Auto 0.2 /100 WBC (0.0-0.2); Platelet Count 125 K/mm3 (150-400); RDW Coefficient Variation 16.1 % (11.7-14.2); RDW Standard Deviation 42.3 fL (35.1-46.3); Red Blood Cell Count 5.07 M/mm3 (4.30-5.90); White Blood Cell Count 24.11 K/mm3 (4.00-11.30)
[2021-06-13 05:31] LABS: Albumin, Blood 1.4 g/dL (3.4-5.0); Albumin/Globulin Ratio 0.4 (0.8-1.8); Bilirubin, Direct 11.1 mg/dL (0.0-0.3); Bilirubin, Indirect 1.7 mg/dL (0.1-0.7); Bilirubin, Total 12.8 mg/dL (0.1-1.0); Calcium, Blood 6.2 mg/dL (8.5-10.1); Globulin, Blood 3.8 g/dL (2.2-4.0); Magnesium, Blood 3.2 mg/dL (1.6-2.4); Total Protein, Blood 5.2 g/dL (6.4-8.2)
[2021-06-13 05:51] LABS: Phosphorus, Blood 10.6 mg/dL (2.5-4.9)
[2021-06-13 05:52] LABS: Bun/Creatinine Ratio 20.1 (12.0-20.0)
--- NOTE | 2021-06-13 05:52 | NUR ---
SHIFT SUMMARY PATIENT REMAINS INTUBATED AND SEDATED ON PROPOFOL. MOVING HEAD BUT NO EYE OPENING OR MOVEMENT OF EXTREMETIES. BILATERAL SOFT WRIST RESTRAINTS IN PLACE TO PROTECT LINES/TUBES. VENT SETTING UNCHANGED. LUNGS COARSE TO DIMINISHED WITH SMALL AMOUNT OF PIPER SPUTUM VIA SUCTION. HR A.FIB 90s-120. MEDICAL RESEARCH TECH REMAINS STABLE. HEPARIN, DOBUTAMINE, AND AMIO INF. TITRATED HEPARIN DOWN PER PHARMACY. FARLEY DRAINING TO GRAVITY, 75 MLS OUTPUT, CLEAR YELLOW WITH SEDIMENT. RECTAL TUBE HAD 200 MLS OUT OF LIQUID BROWN/BLACK STOOL. TUBE FEED INF NEPRO AT GOAL RATE 25 MLS/HR, 30 MLS FLUSHES Q4H. RISIDUALS 5-20 MLS REINSTILLED. COMPLETE BATH DONE AND DRESSING CHANGED ON CENTRAL LINE AND ART LINE. REPSOTIONED Q2 HOURS.
[2021-06-13 05:53] LABS: Creatinine, Blood 8.52 mg/dL (0.60-1.20)
[2021-06-13 06:30] LABS: BAND PERCENT MAN 3 % (0-8); BASOPHILS PERCENT MAN 0 % (0-2); EOSINOPHILS ABSOLUTE MAN 0.24 K/mm3 (0.00-0.68); EOSINOPHILS PERCENT MAN 1 % (0-6); LYMPHOCYTES ABSOLUTE MAN 0.24 K/mm3 (0.84-5.20); LYMPHOCYTES PERCENT MAN 1 % (21-46); MONOCYTES ABSOLUTE MAN 0.96 K/mm3 (0.16-1.47); MONOCYTES PERCENT MAN 4 % (4-13); MYELOCYTE PERCENT MAN 5 % (0-0); NEUTROPHILS ABSOLUTE MAN 21.45 K/mm3 (1.96-9.15); SEG NEUTROPHILS PERCENT MAN 86 % (41-73); TOTAL CELLS COUNTED 100
--- NOTE | 2021-06-13 09:45 | NUR ---
AM NOTE.... ASSUMED CARE OF PT AT 0700, THE PT IS IN INTUBATED AND SEDATED ON PROPOFOL RUNNING AT 25MCG. THE PT'S ET TUBE IS 8.0 AND 27 AND THE TEETH. VENT SETTINGS ARE AC/PC:28/14/5/40% WITH O2 SATS >90% L/S COARSE T/O DIM IN THE BASES. A SMALL AMOUNT OF THICK PIPER SECRETIONS WERE SUCTIONED VIA THE ET TUBE. THE PT IS IN AFIB IN THE 80'S-110'S. THE PT HAS 2+ PITTING EDEMA TO HIS BLE, DEPENDENT EDEMA TO HIS SCROTUM AND PENIS, THERE ARE SMALL, WHEEPING BLISTERS NOTED TO THE SCROTUM. GENERALIZED EDEMA NOTED TO HIS TORSO AND BUE. BT PRESENT AND HYPOACTIVE, ABD IS SOFT TO PALP. OG TUBE IS RUNNING TUBE FEED NEPRO TO GOAL OF 25MLS/HR WITH 150MLS OF RESIDUAL RE-INSTILLED THIS AM. RECTAL TUBE IN PLACE AND PATENT DRAINING DARK BROWN/BLACK LIQUID STOOLS TO GRAVITY. TEMP FARLEY IS PATENT AND DRAINING TO GRAVITY, THE PT'S TEMP IS 97.9 AT THIS TIME. A SEDATION VACATION THIS AM WAS DONE, THE PT WAS ABLE TO OPEN HIS EYES AND FOLLOW COMMANDS. WILL CONTINUE TO MONITOR.
--- NOTE | 2021-06-13 19:13 | NUR ---
SHIFT SUMMARY.... NO ACUTE NEGATIVE CHANGES NOTED THIS SHIFT, THE PT'S HEPARIN GTT WAS CHANGED FROM 14U/KG/HR TO 11U/KG/HR D/T A CRITIALLY HIGH PTT OF 112.5, THE HEPARIN WAS STOPPED PER PHARMACY AND RESTARTED AT 1545. A PICC LINE WAS PLACED IN THE PT'S MELVI AND PLACEMENT VERIFIED BY XRAY. THE PT'S VENT SETTINGS ARE THE SAME. THE PT'S FARLEY IS PATENT AND DRAINED 25MLS OF DARK YELLLOW URINE THIS SHIFT. THE PT'S RECTAL TUBE IS PATENT AND DRAINED 200MLS OF BLACK LIQUID STOOLS, THE BAG WAS MARKED BY THIS RN AT 1830. THE PT'S SCROTUM SPLIT ACROSS THE FRONT APROX 3 CM, A DRESSING WAS PLACED BY THIS RN. THE PT HAS HAD SCANT SECRETIONS SUCTIONED VIA THE ET TUBE THIS SHIFT. DURING THE SEDATION VACATION THE PT WAS ABLE TO FOLLOW COMMANDS. WILL CONTINUE TO MONITOR UNTIL REPORT IS GIVEN TO ONCOMING RN.
[2021-06-14 05:06] LABS: Hematocrit 39.8 % (37.0-53.0); Hemoglobin 13.7 g/dL (13.5-17.5); Mean Corpuscular HGB 27.1 pg (26.0-34.0); Mean Corpuscular HGB Conc 34.4 g/dL (31.5-36.5); Mean Corpuscular Volume 79 fL (80-100); Mean Platelet Volume 12.4 fL (9.1-12.4); NRBC ABSOLUTE 0.04 K/mm3 (0.00-0.02); NRBC Auto 0.1 /100 WBC (0.0-0.2); Platelet Count 103 K/mm3 (150-400); RDW Coefficient Variation 16.7 % (11.7-14.2); RDW Standard Deviation 44.7 fL (35.1-46.3); Red Blood Cell Count 5.05 M/mm3 (4.30-5.90); White Blood Cell Count 28.71 K/mm3 (4.00-11.30)
[2021-06-14 05:38] LABS: Albumin, Blood 1.4 g/dL (3.4-5.0); Anion Gap 18 mmol/L (6-16); Blood Urea Nitrogen 144 mg/dL (8-24); Bun/Creatinine Ratio 18.7 (12.0-20.0); CO2, Blood 22 mmol/L (21-32); Calcium, Blood 6.2 mg/dL (8.5-10.1); Chloride, Blood 93 mmol/L (98-108); Creatinine, Blood 7.69 mg/dL (0.60-1.20); Glomerular Filtration Rate 7 (60-); Glucose, Blood 179 mg/dL (70-99); Potassium, Blood 4.8 mmol/L (3.5-5.5); Sodium, Blood 133 mmol/L (136-145)
[2021-06-14 05:56] LABS: Phosphorus, Blood 10.4 mg/dL (2.5-4.9)
--- NOTE | 2021-06-14 06:11 | NUR ---
SHIFT SUMMARY NO SIGNIFICANT CHANGES DURING THE NIGHT. HEPARIN GTT CHANGED TO 12U/KG/HR. PROPOFOL @ 30MCG/KG/MIN, DOBUTAMINE @ 2.5MCG/KG/MIN, AMIO @ 0.5MG/MIN. VENT SETTINGS: AC/PC 28/14/5/40% c O2 SATS >90%. SMALL AMOUNT OF THICK, PIPER SECRETIONS SUCTIONED AT THE START OF SHIFT, SCANT SECRETIONS T/O REST OF NIGHT. TF CONTINUES AT GOAL, LESS THAN 30CC RESIDUAL. RECTAL TUBE c ~100ML DARK STOOL. TEMP PROBE FARLEY WITH <50CC DARK KEKE URINE OUT. PT ABLE TO FOLLOW SIMPLE COMMANDS THIS AM DURING SEDATION VACATION, BACK ON SEDATION NOW. ART LINE REMAINS IN PLACE, DRESSING CHANGED MULTIPLE TIMES DUE TO CONTINUOUS WEEPING. WILL CONTINUE TO MONITOR, REPORT TO ONCOMING NURSE.
[2021-06-14 06:35] LABS: BAND PERCENT MAN 5 % (0-8); BASOPHILS PERCENT MAN 0 % (0-2); EOSINOPHILS ABSOLUTE MAN 0.57 K/mm3 (0.00-0.68); EOSINOPHILS PERCENT MAN 2 % (0-6); LYMPHOCYTES ABSOLUTE MAN 0.57 K/mm3 (0.84-5.20); LYMPHOCYTES PERCENT MAN 2 % (21-46); MONOCYTES ABSOLUTE MAN 0.28 K/mm3 (0.16-1.47); MONOCYTES PERCENT MAN 1 % (4-13); MYELOCYTE ABSOLUTE MAN 1.14 K/mm3 (0.00-0.00); MYELOCYTE PERCENT MAN 4 % (0-0); NEUTROPHILS ABSOLUTE MAN 26.12 K/mm3 (1.96-9.15); SEG NEUTROPHILS PERCENT MAN 86 % (41-73); TOTAL CELLS COUNTED 100
--- NOTE | 2021-06-14 09:09 | NUR ---
AM NOTE.... ASSUMED CARE OF PT AT 0700, THE PT IS INTUBATED AND SEDATED ON PROPOFOL AT 35MCG, THE VENT SETTINGS ARE AC/PC:28/14/5/40% WITH O2 SATS >90%. L/S COARSE T/O DIM IN THE BASES, SMALL AMOUNT OF THICK PIPER SECRETIONS NOTED WITH SUCTIONING THE ET TUBE. THE PT HAS SMALL AMOUNT OF THICK CREAM COLOR ORAL SECRETIONS. THE PT IS IN AFIB IN THE 80'S-90'S BP STABLE WITH READING FROM THE ART LINE, THE ART LINE WAS ZEROED AT THE START OF THIS SHIFT. THE PT HAS 2+ PITTING EDEMA TO HIS BLE, DEPENDENT EDEMA TO HIS BUE AND TORSO, THE PT'S SCROTUM AND PENIS CONTINUE TO BE VERY EDEMATOUS, A DRESSING IS NOTED ACROSS THE FRONT OF THE PT'S SCROTUM WHERE THE SKIN HAD SPLIT LAST NIGHT. BT PRESENT AND HYPOACTIVE, ABD IS SOFT AND THE PT GRIMACES WITH PALPATION. A RECTAL TUBE IS IN PLACE DRAINING DARK BROWN LIQUID STOOLS. THE PT'S OG TUBE IS RUNNING NEPRO TUBE FEES AT 25MLS/HR PER ORDERS, RESIDUALS WERE 15MLS AND REINSTILLED THIS AM. THE PT'S FARLEY IS PATENT AND DRAINING DARK YELLOW URINE TO GRAVITY. THE ART LINE AND CENTRAL LINE DRESSING IN THE RIGHT GROIN ARE SATURATED WITH SEROUS DRAINAGE AND STARTING TO PEEL UP AROUND THE EDGES. THE PT WAS STARTED ON A SEDATION VACATION AT THE START OF THIS SHIFT. THE PT WOKE EASILY, WAS ALERT AND FOLLOWING DIRECTIONS. THE PT'S VENT WAS SWITCHED FROM AC/PC: 28/14/5/40% TO SPONTAINOUS PRESSURE SUPPORT OF 7/5 AND 40%, THE PT'S O2 SATS CONTINUE TO BE >90%, THE PT IS CALM AND COOPERATIVE WITH CARE. WILL CONTINUE TO MONITOR.
--- NOTE | 2021-06-14 09:37 | NUR ---
PT UPDATE.... THIS RN SPOKE WITH DR. MANN ABOUT D/Cing THE ART LINE AND RIGHT GROIN CENTRAL LINE, PER DR. MANN THE HEPARIN GTT IS TO BE STOPPED 2 HRS PRIOR TO PULLING THE LINES, HELD FOR 2 HRS AFTER THE LINES ARE PULLED AND THEN RESTARTED. THE PHARMACY WAS NOTIFIED OF THIS PLAN. WILL CONTINUE TO MONITOR.
--- NOTE | 2021-06-14 09:49 | NUR ---
PT UPDATE... DR. MANN AT THE BEDSIDE TO ASSESS THE PT. PER DR. MANN WE ARE STOPPING THE AMIO GTT, THE DOBUTAMINE GTT AND PUTTING THE HEPARIN GTT ON HOLD UNTIL THE ART LINE IS PULLED AND THE SITE IS STABLE. WILL CONTINUE TO MONITOR.
--- NOTE | 2021-06-14 13:38 | NUR ---
PT UPDATE.... THE PT WAS SWITCHED BACK FROM SPONTAINIOUS TO AC/PC D/T THE LINE REMOVAL, PROPOFOL WAS TURNED BACK ON AT 25MCG AND THE PT WAS GIVEN IV FENTANYL. AT 1205 THE PT'S ART LINE AND CENTRAL LINE IN THE RIGHT GROIN WERE REMOVED, PRESSURE WAS HELD FOR 20 MINS BY THIS RN, WHEN PRESSURE WAS REMOVED THE SITE STARTED TO BLEED, PRESSURE WAS HELD AGAIN FOR ANOTHER 12 MINS, AFTER THIS PRESSURE WAS REMOVED AND THE SITE WAS STABLE, NO SWELLING, BLEEDING OR HEMATOMA WAS NOTED TO THE SITE. THE DOBUTAMIN GTT WAS RESTARTED D/T SOFT BLOOD PRESSURES PER DR. MANN. WILL CONTINUE TO MONITOR.
--- NOTE | 2021-06-14 14:10 | NUR ---
PT UPDATE.... PER DR. MANN, HOLD THE HEPARIN DRIP UNTIL TOMORROW WHEN HE CAN RE-ASSESS THE PT D/T THE EXTENDED TIME IT TOOK TO STABALIZE THE PT'S RIGHT GROIN AFTER THE LINES WERE REMOVED. PHARMACY UPDATED TO THIS PLAN. WILL CONTINUE TO MONITOR.
[2021-06-14 14:19] LABS: C DIFFICILE DNA NEGATIVE (Negative)
--- NOTE | 2021-06-14 14:20 | NUR ---
PT UPDATE.... PT'S TUBE FEED RATE WAS CHANGED FROM 25MLS/HR TO 20MLS/HR WITH A 24HR TOTAL OF 480MLS TO BE GIVEN. RESIDUAL CHECKS SO FAR THIS SHIFT HAVE BEEN 10MLS. WILL CONTINUE TO MONITOR.
--- NOTE | 2021-06-14 18:30 | NUR ---
SHIFT SUMMARY.... NO ACUTE NEGATIVE CHANGES NOTED SINCE PREVIOUS NOTES, THE PT'S RIGHT GROIN SITE CONTINUES TO BE STABLE, NO BLEEDING OR HEMATOMA, THE SITE IS OOZING SEROUS FLUID LIKE IT HAD BEEN BEFORE. THE PT'S RECTAL TUBE IS PATENT AND DRAINING TO GRAVITY, THE PT'S STOOL IS NOTED TO BE PROCESS CONTROL OPERATOR THAN BEFORE WITH A DARK JACOBO COLOR TO IT. THE PT'S VS HAVE BEEN STABLE T/O THIS SHIFT, THE DOBUTAMINE GTT HAS BEEN OFF FOR SEVERAL HOURS WITH MAPS >60. THE PT HAS BEEN ON SPONTAINOUS/PRESSURE SUPPORT OF 5/5 AND 40% FOR MOST OF THIS SHIFT. THE PT TOLERATES THIS WELL WITH PRN FENTANYL AND ATIVAN IV PUSHES. THE PT'S FARLEY IS PATENT AND DRAINED 15 MLS OF KEKE URINE. ET AND ORAL SECRETIONS HAVE BEEN MINIMAL FOR MOST OF THIS SHIFT. PER DR. MANN THE HEPARIN GTT IS TO STAY OFF UNTIL TOMORROW. THE PT'S TUBE FEEDS HAVE BEEN REDUCED FROM 25MLS/HR TO 20MLS/HR. TUBE FEED RESIDUALS HAVE BEEN 10MLS. WILL CONTINUE TO MONITOR UNTIL REPORT IS GIVEN TO ONCOMING NEVAEH
--- NOTE | 2021-06-14 21:17 | NUR ---
ASSUMED CARE AT 1900 PT LAYING IN BED INTUBATED WITH VENT SETTINGS PC 5/5, FIO2 40%, TV 600-700; SMALL AMOUNT OF THIN YELLOW SECREATIONS. PT ABLE TO WEAKLY ANSWER Y/N QUESTIONS WITH HEAD NOD; NO PROPOFOL INFUSING; WEAKLY MOVES TOES ON COMMAND BUT DOES NOT MOVE ARMS. AFEBRILE. AFIB W/ HR 80-90'S. SBP 90-100. VERY DEEP SCROTAL EDEMA, GENERAL MODERATE-DEEP EDEMA NOTED. NEPRO INFUSING VIA OG AT 20ML/HR (GOAL); MINIMAL RESIDUALS NOTED. RECTAL TUBE IN PLACE AND DRAINING TO GRAVITY. FARLEY IN PLACE AND DRAINING MINIMAL URINE. LARGE AMOUNT OF SEROUS DRAINAGE NOTED FROM PICC LINE TO MELVI AND RT GROIN FROM ART LINE AND CENTRAL LINE BEING PULLED EARLIER TODAY. PICC LINE DRESSING CHANGED DUE TO SATURATION. RT GROIN SHOWS NO SIGNS OF HEMATOMA, JUST SEROUS DRAINAGE; ABD DRESSING APPLIED AND CHANGED TWICE. TRIALYSIS CATH TO RT IJ DRESSING WNL. SEE SHIFT ASSESSMENT FOR FULL ASSESSMENT.
[2021-06-15 04:40] LABS: Hemoglobin 14.3 g/dL (13.5-17.5); Mean Corpuscular HGB 27.1 pg (26.0-34.0); Mean Corpuscular HGB Conc 34.9 g/dL (31.5-36.5); Mean Corpuscular Volume 78 fL (80-100); NRBC ABSOLUTE 0.02 K/mm3 (0.00-0.02); NRBC Auto 0.1 /100 WBC (0.0-0.2); Platelet Count 91 K/mm3 (150-400); RDW Coefficient Variation 17.2 % (11.7-14.2); RDW Standard Deviation 45.8 fL (35.1-46.3); Red Blood Cell Count 5.27 M/mm3 (4.30-5.90); White Blood Cell Count 28.69 K/mm3 (4.00-11.30)
[2021-06-15 04:50] LABS: Mean Platelet Volume 12.4 fL (9.1-12.4)
[2021-06-15 05:03] LABS: Albumin, Blood 1.4 g/dL (3.4-5.0); Albumin/Globulin Ratio 0.3 (0.8-1.8); Bilirubin, Direct 13.4 mg/dL (0.0-0.3); Bilirubin, Total 15.4 mg/dL (0.1-1.0); Globulin, Blood 4.2 g/dL (2.2-4.0); Potassium, Blood 5.5 mmol/L (3.5-5.5); Total Protein, Blood 5.6 g/dL (6.4-8.2)
[2021-06-15 05:16] LABS: BASOPHILS PERCENT MAN 0 % (0-2); EOSINOPHILS ABSOLUTE MAN 0.28 K/mm3 (0.00-0.68); EOSINOPHILS PERCENT MAN 1 % (0-6); LYMPHOCYTES ABSOLUTE MAN 0.86 K/mm3 (0.84-5.20); LYMPHOCYTES PERCENT MAN 3 % (21-46); MONOCYTES ABSOLUTE MAN 1.72 K/mm3 (0.16-1.47); MONOCYTES PERCENT MAN 6 % (4-13); MYELOCYTE ABSOLUTE MAN 0.28 K/mm3 (0.00-0.00); MYELOCYTE PERCENT MAN 1 % (0-0); NEUTROPHILS ABSOLUTE MAN 25.53 K/mm3 (1.96-9.15); SEG NEUTROPHILS PERCENT MAN 89 % (41-73); TOTAL CELLS COUNTED 100
[2021-06-15 05:52] LABS: Bun/Creatinine Ratio 19.9 (12.0-20.0); Phosphorus, Blood 12.5 mg/dL (2.5-4.9)
--- NOTE | 2021-06-15 06:07 | NUR ---
END OF SHIFT SUMMARY NO ACUTE EVENTS OVERNIGHT. PT CONT TO BE INTUBATED WITH VENT SETTINGS SPONT 5/5, FIO2 40%. PT IS REACTIVE TO VERBAL STIMULI AND IS ABLE TO ANSWER Y/N QUESTIONS VERY WEAKLY. FENTANYL GIVEN X3 AND HELPFUL. AFEBRILE. HR 80-90'S. SBP 90-115. NEPRO INFUSING AT GOAL; MINIMAL RESIDUALS. RECTAL TUBE IN PLACE; 100ML OF OUTPUT. FARLEY IN PLACE WITH MINIMAL URINE OUTPUT; 12ML OF OUTPUT. WEEPING FROM PREVIOUS CENTRAL LINE TO RT GROIN CONT ALL SHIFT; ABD AND ABSORBENT PAD CHANGED X5 DUE TO BEING SATURATED. DR KIMBALL IN TO SEE PT AND STATED THAT PT WILL NEED DIALYSIS TODAY. WILL REPORT TO AM RN WHEN AVAILABLE.
--- NOTE | 2021-06-15 07:46 | NUR ---
Received report destiny Queen RN. Patient is intubated and no sedation. Patient has 8.0 ET 27 cm at teeth and vent settings of spon. mode PS 5/40/5 and sats >90%. He has Picc Line to MELVI carter and site WNL's and is infusing NS TKO. He has Rectal tube in place with dark brown liquid output. He has mepelex trssings bilateral heel, buttock, and scrotum. He has trialysis cath to [facility] and is to have Dialysis today. He has OG and is infusing Nephro 1.8 and goal 20 ml/hr and 30 ml/Q4. eye open and track, knods to questions. Patient is not in restraints.
--- NOTE | 2021-06-15 09:42 | NUR ---
Patient remains unchanged, repositioned and changed pads where he is weeping on left side and scrotal area. Dialysis started arounf 0830. Tolerated am meds through OG.
--- NOTE | 2021-06-15 12:06 | NUR ---
[facility] Dialysis was able to rod puller 5L and systolics still 120. He still alert to nod yes and no. He remains on spon mode , PS 5/40/5 and sats >90%. Still weeping RUE and scrotal area. Dr Jolley has assesed and no other orsers than Bumex.
--- NOTE | 2021-06-15 14:00 | NUR ---
Patient continues without change, minimal secretions from ET. Vent settings Spon mode PS 5/40/5 and sats >90%. Picc line infusing NS TKO, Heparin restarted 12 units/kg/hr and Bumex gtt started at 2 mg /hr, No increased urine in 1st hour of bumex gtt. Remains in A-Fib 100's and systolics 120's. Rectal tube draining to gravity dark brown liq. stool. Continues to answer yes and no with head nods.
--- NOTE | 2021-06-15 15:30 | NUR ---
Patient remains unchanged. No changes to gtt's or vent settings.
--- NOTE | 2021-06-15 18:19 | NUR ---
Patient remains intubated with 8.0 ET and 27 cm at teeth with vent setting of Spon mod PS 5/40/5 and sats 97%. OG in place and is infusing Nephro 1.8 at 20 ml/hr goal and 30 ml/q4 water flushes. 18Fr Polanco output was only 100 mleven after Bumex gtt. Rectal tube 800 ml output dark brown stool. PICC line infusing Bumex at 4mg/hr increaed 2nd bag, Heparin 12 units/kg/hr, NS TKO. He continues to weep from groin area and LUE. Continue full turns to get off buttocks. He remaisn out of restraints and no UE movement. Nods yes and no to questions and trackas visually. Temp 99.3
--- NOTE | 2021-06-15 20:13 | NUR ---
ASSUMED CARE AT 1900 PATIENT IS ALERT AND FOLLOWONG COMMANDS. NO MOVEMENT OF UPPER EXTREMETIES, PATIENT ABLE TO WIGGLE HIS TOES. NODS YES/NO TO QUESTIONS. INTUBATED AND ON VENT, SETTINGS PS 5/5 FI02 40%. LUNGS COARSE TO DIMINISHED WITH A SMALL AMOUNT OF BROWN SPUTUM SUCTIONED. RR 20S. HR REMIANS A.FIB 100-120, BP STABLE. HEPARIN INF. BLE PULSES FOUND WITH DOPPLER. TUBE FEED INF NEPRO AT GOAL RATE 20 MLS/HR WITH 30 MLS FLUSHES Q4H. FARLEY DRAINING SCANT AMOUNT OF YELLOW URINE. BUMEX INF. RECTAL TUBE DRAINING BROWN/BLACK LIQUID STOOL. REPOSITIONED AND ORAL CARE DONE. SEE SHIFT ASSESSMENT FOR MORE INFO.
[2021-06-16 04:11] LABS: Hematocrit 39.2 % (37.0-53.0); Mean Corpuscular HGB 27.3 pg (26.0-34.0); Mean Corpuscular HGB Conc 35.7 g/dL (31.5-36.5); Mean Corpuscular Volume 76 fL (80-100); NRBC ABSOLUTE 0.03 K/mm3 (0.00-0.02); NRBC Auto 0.1 /100 WBC (0.0-0.2); Platelet Count 97 K/mm3 (150-400); RDW Coefficient Variation 17.5 % (11.7-14.2); RDW Standard Deviation 45.5 fL (35.1-46.3); Red Blood Cell Count 5.13 M/mm3 (4.30-5.90); White Blood Cell Count 25.44 K/mm3 (4.00-11.30)
[2021-06-16 04:16] LABS: Mean Platelet Volume 11.1 fL (9.1-12.4)
[2021-06-16 04:25] LABS: Albumin, Blood 1.4 g/dL (3.4-5.0); Anion Gap 18 mmol/L (6-16); Blood Urea Nitrogen 147 mg/dL (8-24); Bun/Creatinine Ratio 18.6 (12.0-20.0); CO2, Blood 22 mmol/L (21-32); Chloride, Blood 94 mmol/L (98-108); Glomerular Filtration Rate 7 (60-); Glucose, Blood 144 mg/dL (70-99); Potassium, Blood 4.8 mmol/L (3.5-5.5); Sodium, Blood 134 mmol/L (136-145)
[2021-06-16 04:54] LABS: BAND PERCENT MAN 4 % (0-8); BASOPHILS ABSOLUTE MAN 0.25 K/mm3 (0.00-0.23); BASOPHILS PERCENT MAN 1 % (0-2); EOSINOPHILS PERCENT MAN 0 % (0-6); LYMPHOCYTES ABSOLUTE MAN 0.25 K/mm3 (0.84-5.20); LYMPHOCYTES PERCENT MAN 1 % (21-46); MONOCYTES ABSOLUTE MAN 2.03 K/mm3 (0.16-1.47); MONOCYTES PERCENT MAN 8 % (4-13); NEUTROPHILS ABSOLUTE MAN 22.89 K/mm3 (1.96-9.15); SEG NEUTROPHILS PERCENT MAN 86 % (41-73); TOTAL CELLS COUNTED 100
[2021-06-16 05:13] LABS: Phosphorus, Blood 9.5 mg/dL (2.5-4.9)
--- NOTE | 2021-06-16 06:41 | NUR ---
SHIFT SUMMARY PATIENT INTUBATED WITH NO SEDATION AT THIS TIME. ALERT AND ABLE TO FOLLOW COMMANDS. NODS YES/NO TO QUESTIONS. ABLE TO WIGGLE TOES AND FINGERS. 02 SATS >93% ON PS 5/5 40%, RR 20s. SMALL AMOUNT OF BROWN PHLEGM SUCTIONED. LUNGS SOUNDS COARSE TO DIMINISHED. HR REMAINS A.FIB 90s-110. BP STABLE. FARLEY WITH MINIMAL OUTPUT 50 MLS WITH SEDIMENT. RECTAL TUBE HAS LIQUID BROWN OUTPUT 200 MLS. TUBE FEED REMAINS INF AT GOAL RATE, MINIMAL TO NO RISIDUALS. MIDNIGHT CBG 52, AMP OF D50 GIVEN PER HOSPITALIST. BED BATH DONE, MEPILEX ON COCCCYX CHANGED. REPOSITIONED Q2 HOURS. BUMEX AND HEPARIN INF. FENTANYL PRN FOR PAIN.
--- NOTE | 2021-06-16 18:21 | NUR ---
PATIENT ALERT AND ORIENTED, ANSWERS Y/N WITH HEAD MOVEMENT, ROM TO EXTREMITIES, SON VISITED TODAY, PROPOFOL STARTED PER DR MANN FOR COMFORT. SCROTUMN STILL SWOLLA, ICE TO AREA, CHANGED ABD PAD, TELE AFIB-SNR, SBP 90S, HEART RATE 70S, DIALYSIS TO BE DONE TOMORROW, POOR OUTPU, DR MANN AND DR KIMBALL AWARE. TF AT 20 ML/HR, HEPARIN, TKO AND PROPOFOL INFUSING. VENT AC TV 600, 40$, PEEP 5, RATE 20. WILL RELAY TO PM RN, ECTM
[2021-06-16 22:27] LABS: Influenza A, PCR NEGATIVE (NEGATIVE); Influenza B, PCR NEGATIVE (NEGATIVE); Resp Syncytial Virus, PCR NEGATIVE (NEGATIVE); SARS-Cov-2 (COVID-19) PCR, MMC NEGATIVE (NEGATIVE)
--- NOTE | 2021-06-16 22:52 | NUR ---
ASSUMED CARE AT 1900 PT LAYING IN BED INTUBATED WITH VENT SETTINGS AC/PC 20, 14/5, FIO2 40%; MODERATE AMOUNT OF THICK YELLOW SECREATIONS FROM ETT. PT SEDATED WITH PROPOFOL INFUSING AT 18MCG/KG/MIN; PT STILL ABLE TO OPEN EYES, FOLLOW DIRECTIONS, AND ANSWER Y/N QUESTIONS WITH HEAD NODS; VERY WEAKLY ABLE TO MOVE TOES AND FINGERS. AFEBRILE. AFIB NOTED WITH HR 70-90'S. SBP 100-110; GENERAL 3+ EDEMA NOTED. NEPRO INFUSING VIA OG AT 20ML/HR (GOAL) WITH 30ML WATER FLUSHES Q4HR; MINIMAL RESIDUALS. RECTAL TUBE PATENT AND DRAINING TO GRAVITY; FARLEY IN PLACE WITH MINIMAL OUTPUT. WEEPING TO RT GROIN DECREASED. MEPILEX TO COCCYX IN PLACE; PLAN TO CHANGE. HEPARIN INFUSING AT 12UNITS/KG/HR. SEE SHIFT ASSESSMENT FOR FULL ASSESSMENT.
[2021-06-17 02:45] LABS: EOSINOPHILS ABSOLUTE AUTO 0.27 K/mm3 (0.00-0.68); EOSINOPHILS PERCENT AUTO 1 % (0-6); Hematocrit 38.1 % (37.0-53.0); Hemoglobin 13.5 g/dL (13.5-17.5); IMMATURE GRAN ABSOLUTE AUTO 1.77 K/mm3 (0.00-0.10); IMMATURE GRAN PERCENT AUTO 7 % (0-1); LYMPHOCYTES ABSOLUTE AUTO 0.65 K/mm3 (0.84-5.20); LYMPHOCYTES PERCENT AUTO 3 % (21-46); MONOCYTES ABSOLUTE AUTO 1.33 K/mm3 (0.16-1.47); MONOCYTES PERCENT AUTO 5 % (4-13); Mean Corpuscular HGB 27.1 pg (26.0-34.0); Mean Corpuscular HGB Conc 35.4 g/dL (31.5-36.5); Mean Corpuscular Volume 76 fL (80-100); NEUTROPHILS ABSOLUTE AUTO 21.35 K/mm3 (1.96-9.15); NEUTROPHILS PERCENT AUTO 84 % (41-73); Platelet Count 96 K/mm3 (150-400); RDW Coefficient Variation 17.9 % (11.7-14.2); RDW Standard Deviation 45.4 fL (35.1-46.3); Red Blood Cell Count 4.99 M/mm3 (4.30-5.90); White Blood Cell Count 25.43 K/mm3 (4.00-11.30)
[2021-06-17 02:50] LABS: BASOPHILS ABSOLUTE AUTO 0.06 K/mm3 (0.00-0.23); BASOPHILS PERCENT AUTO 0 % (0-2); Mean Platelet Volume 11.9 fL (9.1-12.4)
--- NOTE | 2021-06-17 06:36 | NUR ---
END OF SHIFT SUMMARY NO ACUTE EVENTS OVERNIGHT. PT CONT TO BE INTUBATED WITH VENT SETTINGS AC/PC 20, 14/5, FIO2 40%. PT RESPONSIVE TO VERBAL STIMULI AND IS ABLE TO ANSWER Y/N QUESTIONS WITH HEAD NOD; PROPOFOL INFUSING AT 18MCG/KG/MIN. AFEBRILE. NSR NOTED WITH HR 70-80'S. SBP 100-120. NEPRO INFUSING AT GOAL; MINIMAL RESIDUALS. RECTAL TUBE IN PLACE. FARLEY IN PLACE WITH MINIMAL OUTPUT; 60ML OF URINE. TIRALYSIS LINE TO RT IJ. PICC TO MELVI PATENT AND INFUSING; DRESSING CHANGED THIS SHIFT. HEPARIN INFUSING AT 12UNITS/KG/HR. WILL REPORT TO AM RN WHEN AVAILABLE.
--- NOTE | 2021-06-17 06:48 | NUR ---
UPDATE INFECTION CONTROL CALLED AND STATED THAT PT CAN COME OUT OF ISOLATION. THE RESPIRATORY PANEL THAT WAS SENT YESTERDAY CAME BACK NEGATIVE. PT NOW OUT OF ISOLATION.
[2021-06-17 07:08] LABS: Anion Gap 20 mmol/L (6-16); Blood Urea Nitrogen 171 mg/dL (8-24); CO2, Blood 20 mmol/L (21-32); Chloride, Blood 94 mmol/L (98-108); Glucose, Blood 116 mg/dL (70-99); Sodium, Blood 134 mmol/L (136-145)
[2021-06-17 07:09] LABS: Bun/Creatinine Ratio 18.6 (12.0-20.0); Glomerular Filtration Rate 6 (60-); Magnesium, Blood 2.9 mg/dL (1.6-2.4)
[2021-06-17 07:10] LABS: Albumin, Blood 1.2 g/dL (3.4-5.0)
[2021-06-17 07:15] LABS: Calcium, Blood 5.4 mg/dL (8.5-10.1); Creatinine, Blood 9.18 mg/dL (0.60-1.20); Phosphorus, Blood 10.1 mg/dL (2.5-4.9)
--- NOTE | 2021-06-17 17:33 | NUR ---
SHIFT SUMMARY NO ACUTE CHANGES THIS SHIFT. PT REMAINS INTUBATED AND SEDATED. PT ON PRESSURE SUPPORT 5/5, FIO2 30%. PT WITH WEAK COUGH AND MODERATE AMOUNT OF ETT SECRETIONS WITH SUCTION. PROPOFOL INFUSING AT 30 MCG/KG/MIN. PT ABLE TO OPEN EYES TO VERBAL STIMULI AND SHAKES HEAD YES/NO TO SOME QUESTIONS. PICC TO MELVI REMAINS C/D/I. NS INFUSING TKO. HEPARIN PAUSED THIS AFTERNOON FOR REMOVAL OF TRIALYSIS CATH. HEPARIN GTT RESTARTED AT 11 UNITS/KG/HR PER PHARMACY. OGT REMAINS IN PLACE WITH TF INFUSING AT GOAL RATE. FARLEY TEMP PROBE REMAINS IN PLACE WITH SCANT AMOUNT OF DARK YELLOW OUTPUT NOTED. PT RECIEVED DIALYSIS THIS MORNING PRIOR TO TRIALYSIS CATH REMOVAL. PLAN FOR PERMACATH PLACEMENT TOMORROW. RECTAL TUBE REMAINS IN PLACE WITH SOFT BROWN OUTPUT NOTED. PT REMAINS JAUNDICED AND WITH EDEMA THROUGHOUT. VITAL SIGNS HAVE REMAINED STABLE. PT DAUGHTER AT BEDSIDE THIS AFTERNOON AND UPDATED TO CURRENT CONDITION AND PLAN OF CARE. WILL CONTINUE TO MONITOR AND REPORT OFF TO ONCOMING RN.
[2021-06-18 04:33] LABS: BASOPHILS ABSOLUTE AUTO 0.13 K/mm3 (0.00-0.23); BASOPHILS PERCENT AUTO 1 % (0-2); EOSINOPHILS ABSOLUTE AUTO 0.23 K/mm3 (0.00-0.68); EOSINOPHILS PERCENT AUTO 1 % (0-6); Hemoglobin 12.8 g/dL (13.5-17.5); IMMATURE GRAN ABSOLUTE AUTO 1.19 K/mm3 (0.00-0.10); IMMATURE GRAN PERCENT AUTO 5 % (0-1); LYMPHOCYTES ABSOLUTE AUTO 0.45 K/mm3 (0.84-5.20); LYMPHOCYTES PERCENT AUTO 2 % (21-46); MONOCYTES ABSOLUTE AUTO 0.97 K/mm3 (0.16-1.47); MONOCYTES PERCENT AUTO 4 % (4-13); Mean Corpuscular HGB 27.8 pg (26.0-34.0); Mean Corpuscular HGB Conc 36.6 g/dL (31.5-36.5); Mean Corpuscular Volume 76 fL (80-100); NEUTROPHILS ABSOLUTE AUTO 18.95 K/mm3 (1.96-9.15); NEUTROPHILS PERCENT AUTO 87 % (41-73); Platelet Count 115 K/mm3 (150-400); RDW Coefficient Variation 18.2 % (11.7-14.2); RDW Standard Deviation 46.2 fL (35.1-46.3); White Blood Cell Count 21.92 K/mm3 (4.00-11.30)
[2021-06-18 04:40] LABS: Mean Platelet Volume 11.9 fL (9.1-12.4)
[2021-06-18 04:48] LABS: Magnesium, Blood 2.5 mg/dL (1.6-2.4)
[2021-06-18 04:54] LABS: Albumin, Blood 1.1 g/dL (3.4-5.0); Anion Gap 17 mmol/L (6-16); Blood Urea Nitrogen 134 mg/dL (8-24); Bun/Creatinine Ratio 18.7 (12.0-20.0); CO2, Blood 20 mmol/L (21-32); Calcium, Blood 5.6 mg/dL (8.5-10.1); Chloride, Blood 92 mmol/L (98-108); Creatinine, Blood 7.17 mg/dL (0.60-1.20); Glomerular Filtration Rate 8 (60-); Glucose, Blood 202 mg/dL (70-99); Phosphorus, Blood 7.4 mg/dL (2.5-4.9); Potassium, Blood 4.6 mmol/L (3.5-5.5); Sodium, Blood 129 mmol/L (136-145)
--- NOTE | 2021-06-18 06:03 | NUR ---
END OF SHIFT SUMMARY: At the start of shift, pt was not very responsive to verbal stimuli. Was able to grimaces to pain but unable to move any extremity to pain. At around 1999, noticed that pt temperature is going home ranging between 99.8 F to 100.0 F. Gave PO acetaminophen, turned temp in room down, ice packs and gave pt cold bed bath. Around 0 - 0, pt temp still increasing, called [facility] Kebede to report fever and hypotension. MD ordered blood cultures, Levophed to be started and Vancomycin. Started Levophed to keep MAP >65. Pt also had hypoglycemia despite holding Lantus. Gave 1 amp of D50 per hospitalist. Around 0, pt.'s temp starting to go down, pt responding more to verbal stimuli able to nod yes and slightly shake head for no. Still unable to move any extremities but able to shrug shoulders to command. Polanco remains in place but with little to no output overnight (20 mL total). Rectal tube also patent and remains in place with total output of 500 mL over night. Pt does have a rash all over abdomen area and coccyx wound cleansed and new mepilex placed. Per order, Heparin infusion off and Tube Feeding off for catheter placement in the afternoon.
--- NOTE | 2021-06-18 17:48 | NUR ---
SHIFT SUMMARY NO ACUTE CHANGES THIS SHIFT. PT REMAINS INTUBATED AND SEDATED. VENT SETTINGS UNCHANGED, PT REMAINS ON PRESSURE SUPPORT 5/5, FIO2 30%. PT WITH MODERATE AMOUNT OF THICK PIPER ETT SECRETIONS WITH SUCTION. PT SEDATED WITH PROPOFOL AT 30 MCG/KG/MIN. PICC TO MELVI C/D/I. HEPARIN GTT INFUSING AT 12 UNITS/KG/HR, NS TKO, AND LEVOPHED 2 MCG/MIN. OGT REMAINS IN PLACE WITH TF INFUSING AT 30 ML/HR GOAL RATE. FARLEY TEMP PROBE REMAINS IN PLACE WITH SCANT AMOUNT OF DARK YELLOW OUTPUT NOTED. RECTAL TUBE REMAINS IN PLACE WITH SOFT BROWN/JACOBO OUTPUT NOTED. PT REMAINS JAUNDICED AND EDEMATOUS. VITAL SIGNS STABLE. PT SPONTANEOUSLY OPENS EYES AND SHAKES HEAD YES/NO TO SOME QUESTIONS. WILL CONTINUE TO MONITOR AND REPORT OFF TO ONCOMING RN.
[2021-06-18 23:06] LABS: Vancomycin, Random 19.5 ug/mL
[2021-06-19 05:17] LABS: BASOPHILS PERCENT AUTO 1 % (0-2); EOSINOPHILS ABSOLUTE AUTO 0.12 K/mm3 (0.00-0.68); EOSINOPHILS PERCENT AUTO 1 % (0-6); Hematocrit 35.8 % (37.0-53.0); Hemoglobin 12.7 g/dL (13.5-17.5); IMMATURE GRAN ABSOLUTE AUTO 0.89 K/mm3 (0.00-0.10); IMMATURE GRAN PERCENT AUTO 5 % (0-1); LYMPHOCYTES ABSOLUTE AUTO 0.57 K/mm3 (0.84-5.20); LYMPHOCYTES PERCENT AUTO 3 % (21-46); MONOCYTES ABSOLUTE AUTO 0.97 K/mm3 (0.16-1.47); MONOCYTES PERCENT AUTO 5 % (4-13); Mean Corpuscular HGB 27.1 pg (26.0-34.0); Mean Corpuscular HGB Conc 35.5 g/dL (31.5-36.5); Mean Corpuscular Volume 76 fL (80-100); NEUTROPHILS ABSOLUTE AUTO 16.68 K/mm3 (1.96-9.15); NEUTROPHILS PERCENT AUTO 86 % (41-73); Platelet Count 107 K/mm3 (150-400); RDW Coefficient Variation 18.8 % (11.7-14.2); RDW Standard Deviation 47.6 fL (35.1-46.3); Red Blood Cell Count 4.69 M/mm3 (4.30-5.90); White Blood Cell Count 19.33 K/mm3 (4.00-11.30)
[2021-06-19 05:52] LABS: Magnesium, Blood 2.7 mg/dL (1.6-2.4)
[2021-06-19 06:03] LABS: Albumin, Blood 1.1 g/dL (3.4-5.0); Anion Gap 17 mmol/L (6-16); Blood Urea Nitrogen 166 mg/dL (8-24); Bun/Creatinine Ratio 18.5 (12.0-20.0); CO2, Blood 21 mmol/L (21-32); Calcium, Blood 6.3 mg/dL (8.5-10.1); Chloride, Blood 94 mmol/L (98-108); Creatinine, Blood 8.97 mg/dL (0.60-1.20); Glomerular Filtration Rate 6 (60-); Glucose, Blood 128 mg/dL (70-99); Phosphorus, Blood 8.4 mg/dL (2.5-4.9); Potassium, Blood 5.3 mmol/L (3.5-5.5); Sodium, Blood 132 mmol/L (136-145)
--- NOTE | 2021-06-19 06:30 | NUR ---
END OF SHIFT SUMMARY: Pt remains sedated with Propofol, unable to follow commands and no movement to painful stimuli on any extremity. Does grimaces to pain during oral care and repositioning. Remains on the ventilator, spontenous pressure support FiO2 30% and PEEP 5. Thick yellowish ng secretions from ETT and oral. Sent a tracheal aspirate for sputum culture due to fever. Pt remains hypotensive, vasopressin was added alongside levophed to maintain MAP goal >65. Pt still has a fever despite ice and acetaminophen.
--- NOTE | 2021-06-19 06:39 | NUR ---
Heparin GTT and Tube Feeding off per order. Procedure today to place a permacath.
--- NOTE | 2021-06-19 07:15 | NUR ---
BEGINNING OF SHIFT Assumed care of pt at 0700 with Heaven HERRING. Report received from Beatriz HRERING. Pt on ventilator, spontaneous mode with PS 5/5, 30% FiO2. RR 22-26, Tidal volume 500-700 mL. SpO2 90% or greater. 8.0 cm ETT, 27 cm at teeth.
[2021-06-19 11:51] LABS: Albumin, Blood 1.4 g/dL (3.4-5.0); Albumin/Globulin Ratio 0.3 (0.8-1.8); Bilirubin, Direct 12.4 mg/dL (0.0-0.3); Bilirubin, Indirect 2.4 mg/dL (0.1-0.7); Bilirubin, Total 14.8 mg/dL (0.1-1.0); Globulin, Blood 4.1 g/dL (2.2-4.0); Total Protein, Blood 5.5 g/dL (6.4-8.2)
[2021-06-19 12:02] LABS: International Normalized Ratio 1.4; Prothrombin Time Results 14.4 Sec (9.7-11.5)
[2021-06-19 13:26] LABS: C DIFFICILE DNA Duplicate (Negative)
--- NOTE | 2021-06-19 13:30 | NUR ---
Patient to OR for placement of dialysis catheter.
[2021-06-19 13:53] LABS: Hematocrit 35.6 % (37.0-53.0); Hemoglobin 12.5 g/dL (13.5-17.5)
--- NOTE | 2021-06-19 14:58 | NUR ---
06/19/21 1458 Kedar Herrera PATIENT ARRIVED TO THE OR FROM ICU. PATIENT INTUBATED W/CENTRAL LINE, PICC LINE, FARLEY AND RECTAL TUBE. PT ON SCHEDULED ANTIBIOTICS.
--- NOTE | 2021-06-19 16:00 | NUR ---
Pt back from OR. Pt had been receiving phenylephrine pushes to sustain BP. Levophed incrementally increased from 10 mcg/min to 20 mcg/min. Propofol on SB. Dr Christianson notified. 350 mL bolus of NS given. Dobutamine and neosynephrine available. Pt's stool is dark black. Plan for GI to perform EGD when patient is done with dialysis. Pt currently receiving dialysis.
[2021-06-19 18:51] LABS: Vancomycin, Random 21.4 ug/mL
--- NOTE | 2021-06-19 18:52 | NUR ---
SUMMARY Neuro: Receiving 15 mcg/kg/min propofol. Fluctuating mentation. Pt opened eyes to verbal stimulus prior to surgery. After surgery, pt is only responsive to pain. Intermittent cough and gag reflexes. Pupils 3 mm, brisk response to light. Musculoskeletal: Pt does not move arms or legs. Requires maximum assistance for Q2H repositions. Respiratory: 8.0 cm ETT, 27 cm at the teeth. Vent settings PC 12/5 and 30% FiO2. SpO2 90% or greater. Small amount of thick ng secretions from ETT. Coarse upper lobes, diminished otherwise. Cardiac: Atrial flutter with rate 95-105. Currently receiving 18mcg/min levophed and receiving vasopressin. Profoundly edematous, however unchanged from start of shift. GI: TF restarted at goal rate. Rectal tube with large amount of black stool this shift. : Polanco had 25 mL urine output. Pt had hemodialysis todya. Skin: Unchanged from initial assessment. Fresh dressing placed to sacrum today. Psych: AMDDIE due to intubation and sedation.
[2021-06-19 21:39] LABS: Hematocrit 36.1 % (37.0-53.0); Hemoglobin 12.8 g/dL (13.5-17.5)
--- NOTE | 2021-06-19 22:00 | NUR ---
ASSUMED CARE AT 1900 PT LAYING BED INTUBATED WITH VENT SETTINGS AC/PC 12, 10/5, FIO2 30%; SMALL AMOUNT OF THICK YELLOW SECREATIONS FROM ETT. PT SEDATED WITH PROPOFOL INFUSING AT 15MCG/KG/MIN; PT REACTIVE TO NOXIOUS AND PAINFUL STIMULI; ATTMENT TO OPEN EYES WHEN ASKED BUT IS NOT SUCCESSFUL; PROFOUNDLY WEAK. TEMP 99.9. HR 110-120. SBP 130-150'S; TITRATED LEVOPHED DOWN TO 13MCG/MIN; VASOPRESSIN INFUSING AT 0.04UNITS/MIN; SEE FLOWSHEET FOR TITRATIONS. NEPRO PLACED ON HOLD NOW DUE TO ANTICIPATED SCOPE TONIGHT. RECTAL TUBE IN PLACE AND DRAINING BLACK LIQUID STOOL. FARLEY IN PLACE AND DRAINING MINIMAL URINE. SEE SHIFT ASSESSMENT FOR FULL ASSESSMENT.
--- NOTE | 2021-06-19 22:52 | NUR ---
.History, Chart, Medications and Allergies reviewed before start of procedure. INTO ICU ROOM 4 TO DO CASE WITH DR PASRON PATIENT VENTED AND ON DRIP
--- NOTE | 2021-06-19 23:09 | NUR ---
06/19/21 2309 Hansel Fernandez Bite Block Placed. History, Chart, Medications and Allergies reviewed before start of procedure. MONITOR INTACT WITH CONTINUOUS PULSE OXIMETRY AND INTERMITTENT BP. KPATIENT INTUBATED AND VENTED PRIOR TO PROCDURE RN ADMUSTING SEDATION NEEDED.
--- NOTE | 2021-06-20 | NUR ---
UPDATE DR PARSON AT BEDSIDE AND FINISHED SCOPE. ONE BLEED FOUND AND 3 CLIPS PLACED ON BLEEDING AREA. PROPOFOL TITRATED UP TO 45MCG/KG/MIN WITH LEVOPHED TITRATING UP TO 13MCG/MIN FOR PROCEDURE. NOW PROPFOL AT 25MCG/KG/MIN WITH LEVOPHED AT 10MCG/MIN. PT TOLERATED WELL. OG REMOVED DURING PROCEDURE AND NOT REPLACED. DR PARSON STATED TO CONT TO HOLD THE HEPARIN AND REPLACE AN OG IN A COUPLE OF DAYS.
[2021-06-20 05:54] LABS: BASOPHILS ABSOLUTE AUTO 0.11 K/mm3 (0.00-0.23); BASOPHILS PERCENT AUTO 1 % (0-2); EOSINOPHILS ABSOLUTE AUTO 0.15 K/mm3 (0.00-0.68); EOSINOPHILS PERCENT AUTO 1 % (0-6); Hematocrit 35.2 % (37.0-53.0); Hemoglobin 12.3 g/dL (13.5-17.5); IMMATURE GRAN ABSOLUTE AUTO 0.76 K/mm3 (0.00-0.10); IMMATURE GRAN PERCENT AUTO 5 % (0-1); LYMPHOCYTES ABSOLUTE AUTO 0.56 K/mm3 (0.84-5.20); LYMPHOCYTES PERCENT AUTO 3 % (21-46); MONOCYTES ABSOLUTE AUTO 0.79 K/mm3 (0.16-1.47); MONOCYTES PERCENT AUTO 5 % (4-13); Mean Corpuscular HGB 26.8 pg (26.0-34.0); Mean Corpuscular HGB Conc 34.9 g/dL (31.5-36.5); Mean Corpuscular Volume 77 fL (80-100); Mean Platelet Volume 11.9 fL (9.1-12.4); NEUTROPHILS ABSOLUTE AUTO 13.97 K/mm3 (1.96-9.15); NEUTROPHILS PERCENT AUTO 86 % (41-73); Platelet Count 121 K/mm3 (150-400); RDW Standard Deviation 48.3 fL (35.1-46.3); Red Blood Cell Count 4.59 M/mm3 (4.30-5.90); White Blood Cell Count 16.34 K/mm3 (4.00-11.30)
[2021-06-20 06:10] LABS: International Normalized Ratio 1.41; Prothrombin Time Results 14.5 Sec (9.7-11.5)
--- NOTE | 2021-06-20 06:25 | NUR ---
END OF SHIFT SUMMARY PT CONT TO BE INTUBATED WITH VENT SETTINGS NOW SPONT 5/5, FIO2 30%; SMALL-MODERATE AMOUNT OF THICK YELLOW SECREATIONS FROM ETT. PT IS OPENING EYES ON COMMAND AND MOVING TOES, UNABLE TO MOVE FINGERS AND NOT ANSWERING Y/N QUESTIONS; PROPOFOL INFUSING AT 25MCG/KG/MIN. MAX TEMP 100.0. HR 110-115. SBP 110-130; LEVOPHED INFUSING AT 8MCG/MIN; VASOPRESSING INFUSING AT 0.04UNITS/MIN. RECTAL TUBE IN PLACE WITH 650ML OF BLACK/BROWN LIQUID OUTPUT. OG NO LONGER IN PLACE; SEE PREVIOUS NOTE. FARLEY IN PLACE WITH 100ML URINE OUTPUT. PERMACATH TO RT CHEST DRESSING INTACT. WILL REPORT TO AM RN WHEN AVAILABLE.
[2021-06-20 06:43] LABS: Magnesium, Blood 2.6 mg/dL (1.6-2.4)
[2021-06-20 06:56] LABS: Alanine Aminotransfer (ALT/SGP 140 U/L (12-78); Albumin, Blood 1.3 g/dL (3.4-5.0); Albumin/Globulin Ratio 0.3 (0.8-1.8); Alk Phos 169 U/L (50-136); Anion Gap 17 mmol/L (6-16); Aspartate Aminotrans (AST/SGOT 114 U/L (12-37); Bilirubin, Total 16.9 mg/dL (0.1-1.0); Blood Urea Nitrogen 140 mg/dL (8-24); Bun/Creatinine Ratio 16.9 (12.0-20.0); CO2, Blood 22 mmol/L (21-32); Calcium, Blood 7.3 mg/dL (8.5-10.1); Chloride, Blood 95 mmol/L (98-108); Globulin, Blood 4.2 g/dL (2.2-4.0); Glomerular Filtration Rate 7 (60-); Glucose, Blood 131 mg/dL (70-99); Phosphorus, Blood 8.6 mg/dL (2.5-4.9); Potassium, Blood 4.7 mmol/L (3.5-5.5); Sodium, Blood 134 mmol/L (136-145); Total Protein, Blood 5.5 g/dL (6.4-8.2); Vancomycin, Random 24.6 ug/mL
--- NOTE | 2021-06-20 07:00 | NUR ---
TOOK OVER CARE OF PT AT 0700 06/20/21. PT STABLE WITH CURRENT INTERVENTIONS- SEE MAR, AND TOLERATING VENTILATION.
[2021-06-20 14:36] LABS: Hematocrit 36.1 % (37.0-53.0); Hemoglobin 12.6 g/dL (13.5-17.5)
--- NOTE | 2021-06-20 14:50 | NUR ---
TRACH INSERTION 929 - Dr Finn and Dr Roberts to room. Ventilator changed from pressure support to pressure control 15, 15/5, 20% FiO2 0940 - Huma at head of bed, Alejandra setting up field 944 - Propofol increased to 40 mcg/kg/min. 10 mg morphine given. 50 mg rocuronium given 47 - 50 mg propofol given 48 - NS started at 150 mL/hr 49 - Neck draped 0952 - 50 mg rocuronium given due to pt movement 0953 - 50 mg propofol given 54 - 8.0 perc trach shiley in, cuff inflated, ventilator attached 58 - Procedure over
--- NOTE | 2021-06-20 18:23 | NUR ---
SUMMARY Neuro: Propofol off. Responsive to verbal stimulus. Observed pt nodding head yes/no appropriately, and smiling while friend, Raul, was visiting. Cough and gag present. Musculoskeletal: Pt does not move arms or legs. Shrugs shoulders. Requires maximum assistance for Q2H repositions. Respiratory: 8.0 perc trach, shiley. Vent settings PS 12/5 and 30% FiO2. SpO2 90% or greater. Small amount of thick ng secretions from ETT. Lungs coarse in all lobes. Cardiac: Atrial flutter with rate 105-110. Currently receiving 16 mcg/min levophed and receiving vasopressin. Profoundly edematous, however unchanged from start of shift. GI: TF on standby. Dobhoff in place. 70 cm at nare. Does not flush, but per Dr Finn, plan to leave dobhoff in place and reassess in AM. Rectal tube with large amount of black stool this shift. : Polanco had 25 mL urine output. Pt did not have hemodialysis today. Skin: Unchanged from initial assessment. Fresh dressing placed to sacrum today. Psych: Unable to fully assess, however pt facial expressions appropriate while friend, Raul, visiting at bedside.
--- NOTE | 2021-06-20 21:26 | NUR ---
ASSUMED CARE AT 1900 PT LAYING IN BED ON VENT VIA TRACH THAT WAS PLACED TODAY; VENT SETTINGS SPONT 12/5, FIO2 30%; MODERATE AMOUNT OF RED SECREATIONS FROM TRACH; RED LEAKING AROUND TRACH, DRESSING CHANGED. PT RESPONSIVE TO VERBAL STIMULI; IS ABLE TO ANSWER Y/N QUESTIONS WITH MINIMAL HEAD NODS; ATTEMPTS TO FOLLOW DIRECTIONS OF MOVING TOES AND FINGER; PROFOUNDLY WEAK; NO PROPOFOL INFUSING. AFEBRILE. HR 110. SBP 100-115; LEVOPHED INFUSING AT 16MCG/MIN; VASOPRESSIN INFUSING AT 0.04UNITS/MIN. DOBHOFF IN PLACE AND CLAMPED; RECTAL TUBE IN PLACE AND DRAINING BLACK/BROWN STOOL; PROTONIX GTT INFUSING. FARLEY IN PLACE AND DRAINING MINIMAL OUTPUT. SEE SHIFT ASSESSMENT FOR FULL ASSESSMENT.
[2021-06-20 21:46] LABS: Hematocrit 35.4 % (37.0-53.0); Hemoglobin 12.4 g/dL (13.5-17.5)
[2021-06-21 05:48] LABS: BASOPHILS ABSOLUTE AUTO 0.09 K/mm3 (0.00-0.23); BASOPHILS PERCENT AUTO 1 % (0-2); EOSINOPHILS ABSOLUTE AUTO 0.18 K/mm3 (0.00-0.68); EOSINOPHILS PERCENT AUTO 1 % (0-6); Hematocrit 34.8 % (37.0-53.0); Hemoglobin 12.1 g/dL (13.5-17.5); IMMATURE GRAN ABSOLUTE AUTO 0.42 K/mm3 (0.00-0.10); IMMATURE GRAN PERCENT AUTO 3 % (0-1); LYMPHOCYTES ABSOLUTE AUTO 0.49 K/mm3 (0.84-5.20); LYMPHOCYTES PERCENT AUTO 4 % (21-46); MONOCYTES ABSOLUTE AUTO 0.73 K/mm3 (0.16-1.47); MONOCYTES PERCENT AUTO 5 % (4-13); Mean Corpuscular HGB 26.6 pg (26.0-34.0); Mean Corpuscular HGB Conc 34.8 g/dL (31.5-36.5); Mean Corpuscular Volume 77 fL (80-100); Mean Platelet Volume 11.1 fL (9.1-12.4); NEUTROPHILS ABSOLUTE AUTO 11.99 K/mm3 (1.96-9.15); NEUTROPHILS PERCENT AUTO 86 % (41-73); NRBC ABSOLUTE 0.02 K/mm3 (0.00-0.02); NRBC Auto 0.1 /100 WBC (0.0-0.2); Platelet Count 145 K/mm3 (150-400); RDW Coefficient Variation 19.2 % (11.7-14.2); RDW Standard Deviation 47.5 fL (35.1-46.3); Red Blood Cell Count 4.55 M/mm3 (4.30-5.90)
[2021-06-21 05:59] LABS: International Normalized Ratio 1.34; Prothrombin Time Results 13.8 Sec (9.7-11.5)
[2021-06-21 06:35] LABS: Magnesium, Blood 2.6 mg/dL (1.6-2.4)
--- NOTE | 2021-06-21 06:37 | NUR ---
END OF SHIFT SUMMARY NOT ACUTE EVENTS OVERNIGHT. PT IS ABLE TO ANSWER Y/N QUESTIONS WITH HEAD NODS; ATTEMPTS TO FOLLOW DIRECTIONS TO MOVE TOES AND FINGERS; PROFOUNDLY WEAK. PT CONT TO BE INTUBATED VIA TRACH WITH VENT SETTINGS SPONT 10/5, FIO2 30%; MODERATE AMOUNT OF THICK RED SECREATIONS FROM TRACH; DRESSING AROUND TRACH CHANGED SEVERAL TIMES. AFEBRILE. HR 110. SBP 100-120; LEVOPHED TITRATED DOWN TO 12MCG/MIN; VASOPRESSIN INFUSING AT 0.04UNITS/MIN. DOBHOFF IN PLACE AND CLAMPED; RECTAL TUBE IN PLACE WITH 150ML BLACK/BROWN LIQUID STOOL. FARLEY IN PLACE WITH 100ML OUTPUT. DRESSING TO COCCYX CHANGED; WEEPING FROM SCROTAL WOUND. WILL REPORT TO AM RN WHEN AVAILABLE.
[2021-06-21 06:49] LABS: Albumin, Blood 1.4 g/dL (3.4-5.0); Albumin/Globulin Ratio 0.3 (0.8-1.8); Bilirubin, Total 18.3 mg/dL (0.1-1.0); Bun/Creatinine Ratio 16.9 (12.0-20.0); Creatinine, Blood 9.47 mg/dL (0.60-1.20); Globulin, Blood 4.4 g/dL (2.2-4.0); Phosphorus, Blood 9.1 mg/dL (2.5-4.9); Potassium, Blood 5.3 mmol/L (3.5-5.5); Total Protein, Blood 5.8 g/dL (6.4-8.2)
--- NOTE | 2021-06-21 07:15 | NUR ---
BEGINNING OF SHIFT Assumed care of pt with Susan HERRING at 0700. Report received from Bernice HERRING. Pt alert. Follows commands. Propofol off. 8.0 perc trach, geethaley, in place and connected to ventilator. Vent settings PS 10/5 and 30% FiO2. SpO2 90% or greater. RR 22-28. Tidal volumes 600 mL. Atrial flutter per monitor, rate 110. BP stable with vasopressin at 0.04 units/min and levophed at 10 mcg/min. Protonix drip in place.
--- NOTE | 2021-06-21 07:27 | NUR ---
TOOK OVER CARE AT 0700 06/21/21. PT STABLE WITH CURRENT INTERVENTIONS IN PLACE- SEE MAR. PT CURRENTLY TOLERATING VENTILATION WITH PRESSURE SUPPORT 10/5 30% FiO2.
--- NOTE | 2021-06-21 10:45 | NUR ---
Dr Finn in to see patient. Provider stated to pull dobhoff out by one inch and attempt flushing again. Dobhoff placement changed to 66 cm at nare. Still did not flush. Line removed. Plan to replace when dialysis complete. product safety administrator aware that pt has not been able to take phosphate binders due to lack of gastric access.
--- NOTE | 2021-06-21 11:15 | NUR ---
ANJALIED Entered pt's room and noted that pt's left side of face and linens beneath head were bloody. Source of bleeding appeared to be left nare. Large amount of blood and golf-ball sized clot suctioned from oropharynx. Pt tachcardic. BP lower than previously noted, however MAP remains stable with unchanged vasopressor dosing. HR 120-125, atrial flutter. Dialysis continues. Dr Finn in room to see patient. Ordered 2 units FFP and DDAVP. Fibrinogen level to be checked. Dr Bhakta called to room to place Rhinorocket. Device placed and bleeding immediatly slowed.
--- NOTE | 2021-06-21 12:14 | NUR ---
Dr Finn aware of blood sugar 72. Discussed that levophed is in D5W. Plan to recheck blood sugar with next lab draw.
[2021-06-21 12:52] LABS: Vancomycin, Trough 15.1 ug/mL (5.0-10.0)
[2021-06-21 14:23] LABS: Hematocrit 30.1 % (37.0-53.0); Hemoglobin 10.7 g/dL (13.5-17.5)
--- NOTE | 2021-06-21 15:16 | NUR ---
SACRAL PRESSURRE WOUND PHOTO UPDATED AND PLACED IN PAPER CHART.
[2021-06-21 15:35] LABS: International Normalized Ratio 1.32; Prothrombin Time Results 13.6 Sec (9.7-11.5)
--- NOTE | 2021-06-21 17:08 | NUR ---
VASOPRESSIN STOPPED, LEVOPHED CONTINUED AT 6 MCG/MIN. MAP [address] HERNANDEZ AND DR. PARSON AT BEDSIDE TO SEE PT. DISCUSSED PLAN TO ULTRASOUND LIVER IF BILIRUBIN CONTINUES TO BE ELEVATED AND POSSIBLE REPEAT EGD IF HEMAGLOBIN DROPS FURTHER.
--- NOTE | 2021-06-21 19:00 | NUR ---
ASSUMED CARE ASSUMED CARE OF PATIENT. REMAINS ON VENTILATOR- SPONTANEOUS PS 10, PEEP 5, FIO2 30%. RR 20S-30s. TRACH SITE WITH SMALL AMOUNT OF OLD BLOODY DRAINAGE. SX BLOODY SECRETIONS FROM ETT AND FROM MOUTH. RHINO ROCKET IN PLACE TO LEFT NARES- CONTINUES WITH SMALL AMOUNT OF DRAINAGE AROUND IT. OPENS EYES TO VERBAL STIMULI. WIGGLES TOES TO COMMANDS AND ATTEMPTS TO WIGGLE FINGERS. NODS HEAD YES/NO SEEMINGLY APPROPRIATELY. DENIES C/O PAIN OR DISCOMFORT. MONITOR SHOWS AFLUTTER, RATE 120s. BP STABLE WITH LEVOPHED AT 6MCG/MIN. HD CATH NOTED TO RIGHT UPPER CHEST. MELVI PICC LINE NOTED. FARLEY PATENT AND DRAINING SCANT ORANGISH-YELLOW URINE. RECTAL TUBE IN PLACE WITH SMALL AMOUNT OF BLACKISH-BROWN LIQUID STOOL. SEE SHIFT ASSESSMENT FOR FULL ASSESSMENT.
--- NOTE | 2021-06-21 19:26 | NUR ---
PT RESTING IN BED. STABLE WITH CURRENT INTERVENTIONS. LEVOPHED 4-6 DEPENDING ON PT BEING AWAKE OR ASLEEP. VASOPRESSIN STILL OFF. TOLERATING VENTILATION, SET ON SPONTANEOUS PRESSURE SUPPORT 10/5, 30% FiO2. PT IS STILL JAUNDICE BUT BLE MOTTLING NOTABLY DECREASED. ABSENT BOWEL SOUNDS. PT WAS SEEN MOVING RIGHT FOREARM WELL EASILY FOLLOWING COMMANDS TO WIGGLE TOES, MOUTHING WORDS AND NODDING HEAD LATER IN THE SHIFT . ALTHOUGH, PT ALERTNESS IS STILL LABILE. RHINO ROCKET REMAINS IN PLACE. NO VISIBLE SIGNS OF CONTINUED BLEEDING AT THIS TIME.
[2021-06-21 21:04] LABS: Hematocrit 28.7 % (37.0-53.0); Hemoglobin 10.2 g/dL (13.5-17.5)
--- NOTE | 2021-06-22 00:20 | NUR ---
HYPOGLYCEMIA CBG 53. PT OPENS EYES TO VERBAL STIMULI AND DOES FOLLOW SOME SIMPLE COMMANDS. D50 1/2 AMP GIVEN IV AT THIS TIME PER HYPOGLYCEMIA PROTOCOL.
[2021-06-22 03:52] LABS: BASOPHILS ABSOLUTE AUTO 0.07 K/mm3 (0.00-0.23); BASOPHILS PERCENT AUTO 1 % (0-2); EOSINOPHILS ABSOLUTE AUTO 0.25 K/mm3 (0.00-0.68); EOSINOPHILS PERCENT AUTO 2 % (0-6); Hematocrit 28.7 % (37.0-53.0); Hemoglobin 10.2 g/dL (13.5-17.5); IMMATURE GRAN ABSOLUTE AUTO 0.29 K/mm3 (0.00-0.10); IMMATURE GRAN PERCENT AUTO 3 % (0-1); LYMPHOCYTES ABSOLUTE AUTO 0.55 K/mm3 (0.84-5.20); LYMPHOCYTES PERCENT AUTO 5 % (21-46); MONOCYTES ABSOLUTE AUTO 0.68 K/mm3 (0.16-1.47); MONOCYTES PERCENT AUTO 7 % (4-13); Mean Corpuscular HGB 27.3 pg (26.0-34.0); Mean Corpuscular HGB Conc 35.5 g/dL (31.5-36.5); Mean Corpuscular Volume 77 fL (80-100); Mean Platelet Volume 10.3 fL (9.1-12.4); NEUTROPHILS ABSOLUTE AUTO 8.64 K/mm3 (1.96-9.15); NEUTROPHILS PERCENT AUTO 82 % (41-73); Platelet Count 126 K/mm3 (150-400); RDW Coefficient Variation 19.3 % (11.7-14.2); RDW Standard Deviation 47.5 fL (35.1-46.3); Red Blood Cell Count 3.74 M/mm3 (4.30-5.90); White Blood Cell Count 10.48 K/mm3 (4.00-11.30)
[2021-06-22 04:22] LABS: Albumin, Blood 1.6 g/dL (3.4-5.0); Albumin/Globulin Ratio 0.4 (0.8-1.8); Bilirubin, Total 20.4 mg/dL (0.1-1.0); Bun/Creatinine Ratio 15.2 (12.0-20.0); Calcium, Blood 7.5 mg/dL (8.5-10.1); Creatinine, Blood 7.85 mg/dL (0.60-1.20); Globulin, Blood 3.7 g/dL (2.2-4.0); Magnesium, Blood 2.6 mg/dL (1.6-2.4); Potassium, Blood 4.1 mmol/L (3.5-5.5); Total Protein, Blood 5.3 g/dL (6.4-8.2)
--- NOTE | 2021-06-22 06:51 | NUR ---
SHIFT SUMMARY CONTINUES WITH MECHANICAL VENTILATION- SPONTANEOUS PS 10, PEEP 5, FIO2 30%. RR 16-20s, MOSTLY. CONTINUES TO FOLLOW SOME SIMPLE COMMANDS AND IS ABLE TO NOD HEAD YES/NO APPROPRIATELY. DENIES C/O PAIN/DISCOMFORT BY SHAKING HEAD NO WHEN ASKED. MINIMAL MOVEMENT NOTED IN BILATERAL UPPER EXTREMITIES. MONITOR SHOWS AFLUTTER, RATE 120s. LEVOPHED AT 7MCG/MIN TO MAINTAIN MAP >65. PROTONIX GTT CONTINUES PER ORDER. RHINO ROCKET REMAIN IN PLACE TO LEFT NARES- SLIGHT BLOODY DRAINAGE NOTED AROUND IT. ALSO CONTINUES WITH BLOODY ORAL SECRETIONS. CBG CONTINUED TO FALL BELOW 70 DURING SHIFT- D50 1/2 AMP GIVEN X 2 AND 1 FULL AMP GIVEN X 1 DURING SHIFT. CLINIMIX STARTED THIS AM PER DR. KIMBALL AT 75CC/HR UNTIL ABLE TO RESTART TUBE FEEDING. FARLEY PATENT- DRAINED 75CC. FLEXISEAL WITH SCANT DRAINAGE. WILL REPORT TO ONCOMING RN WHEN AVAILABLE.
--- NOTE | 2021-06-22 11:34 | NUR ---
REASSESSMENT PT IS ALERT, ON THE VENTILATOR VIA TRACH, SPONTANEOUS WITH PS 10, PEEP 5. ABLE TO ANSWER YES/NO QUESTIONS. HIS LUNGS ARE COARSE AND WHEEZY. PT APPEARS TO BE SWALLOWING SOME SECRETIONS. STILL GETTING LARGE AMT OF BLOOD WHEN SUCTIONING THE BACK OF HIS THROAT EVERY COUPLE OF HOURS AND MODERATE AMT WHEN SUCTIONING TRACH. DR. HERNANDEZ REMOVED AIR FROM RHINO ROCKET AT 0925 AND THERE DOES NOT APPEAR TO BE A CHANGE IN THE AMOUNT OF BLOODY SECRETIONS. DR. HERNANDEZ GAVE ISNTRUCTIONS TO LEAVE RHINO ROCKET DEFLATED, BUT IN PLACE FOR TODAY. HR IS TACHY IN THE 120S, AFLUTTER. LEVOPHED TITRATED OFF THROUGHOUT THE MORNING. REMAINS VERY EDEMATOUS. PT UP IN CHAIR THIS MORNING WITH ASSISTANCE OF CEILING LIFT. HE IS EXTREMEMLY WEAK, ABLE TO SHRUG HIS SHOULDERS, BUT CAN'T LIFT UP HIS HANDS, MOVES HIS FEET ENOUGH TO WIGGLE THEM OFF THE PILLOWS THEY ARE PROPPED ON. SPOKE WITH PT'S ACE JONES AND PROVIDED UPDATE. CONTINUE TO MONITOR.
--- NOTE | 2021-06-22 18:06 | NUR ---
SHIFT SUMMARY PT REMAINS ALERT, ON THE VENTILATOR VIA TRACH. HE HAS CONTINUED TO ANSWER YES/NO QUESTIONS THROUGHOUT THE DAY. LUNGS ARE COARSE AND WHEEZY. STILL GETTING DARK BLOODY SECRETIONS FROM THE BACK OF HIS THROAT AND ETT. AFIB/AFLUTTER WITH RATE FROM 110-120S TODAY. LEVOPHED WAS WEANED OFF THIS MORNING, BUT PT BECAME HYPOTENSIVE AGAIN AFTER HE GOT BACK INTO BED FROM THE CHAIR SO LEVOPHED HAD TO BE RESTARTED AND CONTINUED WHILE PT GOT DIALYSIS. AFTER DIALYSIS FINISHED, LEVOPHED HAS BEEN ABLE TO BE TITRATED BACK DOWN SOME. 30ML OF DARK URINE FROM CATHETER, SCANT OUTPUT FROM RECTAL TUBE. PT RECEIVED HIS BATH, COCCYX DRESSING CHANGED. INNER CANNULA CHANGED AND DRESSING AROUND TRACH CHANGED WELL. PT'S SON VISITED TODAY AND WAS UPDATED. CONTINUING TO MONITOR.
--- NOTE | 2021-06-22 19:00 | NUR ---
ASSUMED CARE ASSUMED CARE OF PATIENT. REMAINS ON VENTILATOR- SPONTANEOUS PS 10, PEEP , FIO2 30%. RR 20S. TRACH SITE WITH SMALL AMOUNT OF OLD BLOODY DRAINAGE. SX BLOODY SECRETIONS FROM ETT AND SMALL AMOUNT FROM MOUTH. RHINO ROCKET IN PLACE TO LEFT NARES. OPENS EYES SPONTANEOUSLY. WIGGLES TOES TO COMMANDS AND SQUEEZED RIGHT HAND SLIGHTLY. NODS HEAD YES/NO SEEMINGLY APPROPRIATELY. DENIES C/O PAIN OR DISCOMFORT. MONITOR SHOWS AFIB, RATE 110s. BP STABLE WITH LEVOPHED AT 3MCG/MIN. HD CATH NOTED TO RIGHT UPPER CHEST. MELVI PICC LINE NOTED. FARLEY PATENT AND DRAINING SCANT ORANGISH-YELLOW URINE. RECTAL TUBE IN PLACE WITH SMALL AMOUNT OF BROWN LIQUID STOOL. SEE SHIFT ASSESSMENT FOR FULL ASSESSMENT.
[2021-06-23 04:00] LABS: BASOPHILS ABSOLUTE AUTO 0.07 K/mm3 (0.00-0.23); BASOPHILS PERCENT AUTO 1 % (0-2); EOSINOPHILS ABSOLUTE AUTO 0.37 K/mm3 (0.00-0.68); EOSINOPHILS PERCENT AUTO 4 % (0-6); Hematocrit 28.6 % (37.0-53.0); Hemoglobin 9.9 g/dL (13.5-17.5); IMMATURE GRAN ABSOLUTE AUTO 0.32 K/mm3 (0.00-0.10); IMMATURE GRAN PERCENT AUTO 3 % (0-1); LYMPHOCYTES ABSOLUTE AUTO 0.49 K/mm3 (0.84-5.20); LYMPHOCYTES PERCENT AUTO 5 % (21-46); MONOCYTES ABSOLUTE AUTO 0.58 K/mm3 (0.16-1.47); MONOCYTES PERCENT AUTO 6 % (4-13); Mean Corpuscular HGB Conc 34.6 g/dL (31.5-36.5); Mean Corpuscular Volume 78 fL (80-100); NEUTROPHILS ABSOLUTE AUTO 7.99 K/mm3 (1.96-9.15); NEUTROPHILS PERCENT AUTO 81 % (41-73); NRBC ABSOLUTE 0.02 K/mm3 (0.00-0.02); NRBC Auto 0.2 /100 WBC (0.0-0.2); Platelet Count 125 K/mm3 (150-400); RDW Standard Deviation 49.8 fL (35.1-46.3); Red Blood Cell Count 3.66 M/mm3 (4.30-5.90); White Blood Cell Count 9.82 K/mm3 (4.00-11.30)
[2021-06-23 04:29] LABS: Albumin, Blood 1.6 g/dL (3.4-5.0); Anion Gap 12 mmol/L (6-16); Blood Urea Nitrogen 87 mg/dL (8-24); Bun/Creatinine Ratio 13.2 (12.0-20.0); CO2, Blood 25 mmol/L (21-32); Calcium, Blood 7.8 mg/dL (8.5-10.1); Chloride, Blood 103 mmol/L (98-108); Creatinine, Blood 6.58 mg/dL (0.60-1.20); Glomerular Filtration Rate 9 (60-); Glucose, Blood 88 mg/dL (70-99); Magnesium, Blood 2.5 mg/dL (1.6-2.4); Phosphorus, Blood 5.5 mg/dL (2.5-4.9); Potassium, Blood 3.5 mmol/L (3.5-5.5); Sodium, Blood 140 mmol/L (136-145)
--- NOTE | 2021-06-23 06:04 | NUR ---
SHIFT SUMMARY NO ACUTE CHANGES T/O NOC. VENT SETTINGS UNCHANGED. PT SLEPT INTERMITTENTLY. CONTINUES TO SPONTANOUSLY OPEN EYES AND NOD HEAD YES/NO APPROPRIATELY. DENIES PAIN/DISCOMFORT, BUT DOES GRIMACE AT TIMES WITH REPOSITIONING AND ORAL CARE. LEVOPHED AT 3MCG/MIN T/O SHIFT TO MAINTAIN MAP >65. MONITOR SHOWS AFIB, RATE 110-120s. TMAX 100.0F. RHINO ROCKET IN PLACE TO LEFT NARES- NO FURTHER DRAINAGE NOTED. SMALL AMOUNT OF BLOODY ORAL SECRETIONS NOTED WITH DEEP SUCTIONING. FARLEY PATENT- DRAINED 33CC ORANGE URINE. RECTAL TUBE IN PLACE. CLINIMIX CONTINUES AT 75CC/HR PER ORDER. PROTONIX GTT STOPPED AND CHANGED TO IV BID PER ORDER. WILL REPORT TO ONCOMING RN WHEN AVAILABLE.
--- NOTE | 2021-06-23 12:23 | NUR ---
REASSESSMENT PT GOT UP TO THE CHAIR WITH THE LIFT THIS MORNING AND WAS PUT ON TRACH COLLAR AT THAT TIME. PT TOLERATED BEING UP WITH TRACH COLLAR FOR 2 HOURS. PT HAD PHYSICAL THERAPY DURING THIS TIME AND AFTER THE 2 HOURS PT LOOKED TIRED AND STATED THAT WELL SO HE WAS PUT BACK IN BED AND SWITCHED BACK TO VENTILATOR. LUNGS ARE CLEAR AFTER SUCTIONING, GETTING LARGE AMT OF THICK PIPER/BLOOD SECRETIONS. MODERATE AMT OF BLOOD OUT OF BACK OROPHARYNX THIS MORNING, SIMILAR TO YESTERDAY. RHINOROCKET REMOVED PER DR. HERNANDEZ'S ORDERS WITHOUT ANY COMPLICATIONS. NO NEW BLEEDING FROM NARES. PT REMAINS IN AFIB WTIH RATE BETWEEN LOW 100S AND 130. LEVOPHED ABLE TO BE TITRATED OFF. PT HAS OCCASIONAL SBP IN THE 70S, BUT MAP IS ABOVE 65MMHG AND SBP IMPROVES WITH THE NEXT BP.
--- NOTE | 2021-06-23 16:56 | NUR ---
SHIFT SUMMARY PT GOT UP TO THE CHAIR WITH THE LIFT TWICE TODAY AND STAYED UP FOR 2 HOURS. HE WORE THE TRACH COLLAR IN THE MORNING FOR 2 HOURS AND IN THE AFTERNOON FOR 35 MINUTES BEFORE HE GOT TIRED AND ASKED TO GO BACK ON THE VENT. HIS LUNGS ARE COARSE BEFORE SUCTIONING, CLEAR AFTER. LARGE AMT OF THICK, PIPER/BLOODY SPUTUM. REMAIN IN AFIB WITH RATE MOSTLY IN THE 120S THIS AFTERNOON. LEVOPHED HAS BEEN OFF SINCE THIS AM. SM AMT OF DARK URINE IN FARLEY BAG. LIQUID BROWN STOOL IN RECTAL TUBE. PT'S SISTER CAME BY TODAY AND WAS UPDATED. CONTINUING TO MONITOR.
--- NOTE | 2021-06-23 20:03 | NUR ---
PATIENT RESTING QUIETLY IN BED AWAKENS TO SLIGHT STIMULI. TRACH MIDLINE WITH VENT SPONT 10/5 FIO2 30% SUCTIONING BLOOD TINGED SPUTUM. DEEP ORAL SUCTION OBTAINED DARK BLOODY SPUTUM. GENERALIZED WEAKNESS ONLY ABLE TO MOVE EXTREMITIES SLIGHTLY. DIALYSIS PERMA CATH TO RIGHT CHEST WITH DRESSING CD&I. RECTAL TUBE REMAINS IN PLACE DRAINING LIQUID BLACK/BROW STOOL. GENERALIZED EDEMA CONTINUES.
--- NOTE | 2021-06-23 21:16 | NUR ---
Assumed care at approximately 2030. Report received from Rebeka HERRING. PT in bed, ventilated via trach. Vent settings: PS 10/5, 30%. Dialysis catheter in R/anterior chest. PICC in MELVI. IV access in R/arm. Clinimix running at 75 ml/hr. Polanco in place. Rectal tube in place. Pt alert, able to nod yes and no to questions. No acute needs at this time, will continue to monitor.
--- NOTE | 2021-06-23 23:42 | NUR ---
Report given to Judith HERRING. Pt condition unchanged from assumption of care. Vent settings unchanged, VS stable. See shift assessment for further details.
--- NOTE | 2021-06-24 00:18 | NUR ---
ASSUMED PT CARE FROM NEVAEH GRAMAJO AT 2340 PT LYING IN BED. PT ON VENT VIA TRACH; SPONTANEOUS WITH PS 10/5; FIO2 30%, RR 16, SPO2 >90%. PT ABLE TO OPEN EYES TO VERBAL STIMULI, TRACK, NODS HEAD YES/NO TO QUESTIONS, AND FOLLOWS COMMANDS. PT NOTED TO BE SINUS TACHYCARDIA WITH HR 120'S. PT HYPOTENSIVE EARLIER THIS SHIFT WITH LEVOPHED BEING RESTARTED AT 2MCG/MIN. NS TKO. CLINIMIX INFUSING AT 75MLS/HR. PICC TO LEFT UPPER ARM. 18G TO RIGHT AC. HD CATHETER TO RIGHT ANTERIOR CHEST WALL. RECTAL TUBE AND FARLEY CATHETER IN PLACE AND PATENT/DRAINING TO GRAVITY. PT REMAINS VERY EDEMATOUS AND JAUNDICED. SEE SHIFT SUMMARY FOR FURTHER DETAILS.
[2021-06-24 04:17] LABS: BASOPHILS ABSOLUTE AUTO 0.07 K/mm3 (0.00-0.23); BASOPHILS PERCENT AUTO 1 % (0-2); EOSINOPHILS ABSOLUTE AUTO 0.36 K/mm3 (0.00-0.68); EOSINOPHILS PERCENT AUTO 4 % (0-6); Hematocrit 29.6 % (37.0-53.0); Hemoglobin 10.1 g/dL (13.5-17.5); IMMATURE GRAN ABSOLUTE AUTO 0.42 K/mm3 (0.00-0.10); IMMATURE GRAN PERCENT AUTO 4 % (0-1); LYMPHOCYTES ABSOLUTE AUTO 0.66 K/mm3 (0.84-5.20); LYMPHOCYTES PERCENT AUTO 7 % (21-46); MONOCYTES ABSOLUTE AUTO 0.55 K/mm3 (0.16-1.47); MONOCYTES PERCENT AUTO 6 % (4-13); Mean Corpuscular HGB 27.2 pg (26.0-34.0); Mean Corpuscular HGB Conc 34.1 g/dL (31.5-36.5); Mean Corpuscular Volume 80 fL (80-100); NEUTROPHILS ABSOLUTE AUTO 7.75 K/mm3 (1.96-9.15); NEUTROPHILS PERCENT AUTO 79 % (41-73); Platelet Count 133 K/mm3 (150-400); RDW Coefficient Variation 21.3 % (11.7-14.2); RDW Standard Deviation 51.5 fL (35.1-46.3); Red Blood Cell Count 3.72 M/mm3 (4.30-5.90); White Blood Cell Count 9.81 K/mm3 (4.00-11.30)
[2021-06-24 04:47] LABS: Albumin, Blood 1.5 g/dL (3.4-5.0); Albumin/Globulin Ratio 0.4 (0.8-1.8); Bilirubin, Total 19.9 mg/dL (0.1-1.0); Bun/Creatinine Ratio 14.4 (12.0-20.0); Calcium, Blood 7.7 mg/dL (8.5-10.1); Creatinine, Blood 7.79 mg/dL (0.60-1.20); Globulin, Blood 3.6 g/dL (2.2-4.0); Magnesium, Blood 2.7 mg/dL (1.6-2.4); Phosphorus, Blood 6.4 mg/dL (2.5-4.9); Potassium, Blood 3.9 mmol/L (3.5-5.5); Total Protein, Blood 5.1 g/dL (6.4-8.2)
[2021-06-24 04:49] LABS: Bilirubin, Direct 17.3 mg/dL (0.0-0.3); Bilirubin, Indirect 2.6 mg/dL (0.1-0.7)
--- NOTE | 2021-06-24 05:49 | NUR ---
END OF SHIFT SUMMARY NO SIGNIFICANT CHANGES. VENT SETTINGS REMAIN UNCHANGED. LEVOPHED INCREASE TO 3MCG/MIN WITH MAP'S 60-65. CLINIMIX INFUSING AT 75MLS/HR. DRESSING CHANGED TO UNSTAGEABLE PRESSURE ULCER TO COCCYX/SACRUM; CALCIUM ALGINATE APPLIED AND COVERED WITH MAX-ABSORB DRESSING. PT MAY NEED CHEMICAL DEBRIDEMENT PT HAS A LARGE AREA OF NECROTIC/ESCHAR TISSUE. ATTEMPTED TO KEEP PT OFFLOADED FROM BUTTOCKS; HOWEVER, CONSIDERING BODY HABITUS; PT IS VERY HARD TO KEEP OFF FRAGILE AREA D/T PILLOWS DEFLATING. NO NOSE BLEEDS THIS SHIFT. TMAX 101.3. BLANKETS REMOVED AND PT NOW AT 100.8. PT REMAINS WITHOUT A DOBHOFF AT THIS TIME. WILL CONTINUE TO MONITOR UNTIL REPORT IS HANDED OFF TO ONCOMING RN.
[2021-06-24 13:14] LABS: Vancomycin, Random 9.1 ug/mL
--- NOTE | 2021-06-24 16:21 | NUR ---
Wound care recommendation; Surgical consult for debridement. Cleanse wound with NS, pat dry, apply calcium alginate to wound bed, cover with absorbent dressing. Change daily, soiled or dislodged
--- NOTE | 2021-06-24 18:56 | NUR ---
SHIFT SUMMARY: Pt up in chair for about four hours this afternoon. Trach collar in place from about 1435 to 1804. Levophed currently at 8. Wound care nurse consulted for wound on coccyx; she recommended surgical consult for debridment. Dobhoff replaced x 2 today in right nare; pt gagged up first tube while guidewire was being pulled. PRN ativan given during placement. Vital high protein tube feeds started at 25 ml/hr; goal rate is 65. Dialysis today with 5L off.
--- NOTE | 2021-06-24 20:42 | NUR ---
PATIENT RESTING QUIETLY OPENS EYES TO VERBAL STIMULI, NODDING YES AND NO TO SIMPLE QUESTIONS, ONLY SLIGHT MOVEMENT TO EXTREMITIES. TRACH IN PLACE WITH VENT SPONT 10/5 FIO2 30% SUCTIONING DARK RED BLOODY ORAL SECRETIONS WITH DEEP ORAL SUCTIONING, AND SMALL AMT OF PIPER BLOOD TINGED SPUTUM VIA TRACH. DOBHOFF IN PLACE TO RIGHT NARE WITH VITAL HP AT 25 CC/HR. RECTAL TUBE REMAINS IN PLACE DRAINING LIQUID BLACK/BROWN STOOL. FARLEY DRAINING SMALL AMT OF YELLOW/ORANGE URINE. GENERALIZED EDEMA CONTINUES WITH JAUNDICE, SCROTAL EDEMA WITH SOME SERIOUS DRAINAGE FROM WOUND ON SCROTUM.
[2021-06-25 04:04] LABS: BASOPHILS ABSOLUTE AUTO 0.07 K/mm3 (0.00-0.23); BASOPHILS PERCENT AUTO 1 % (0-2); EOSINOPHILS ABSOLUTE AUTO 0.62 K/mm3 (0.00-0.68); EOSINOPHILS PERCENT AUTO 6 % (0-6); Hematocrit 28.6 % (37.0-53.0); Hemoglobin 9.9 g/dL (13.5-17.5); IMMATURE GRAN ABSOLUTE AUTO 0.43 K/mm3 (0.00-0.10); IMMATURE GRAN PERCENT AUTO 5 % (0-1); LYMPHOCYTES ABSOLUTE AUTO 0.53 K/mm3 (0.84-5.20); LYMPHOCYTES PERCENT AUTO 6 % (21-46); MONOCYTES ABSOLUTE AUTO 0.51 K/mm3 (0.16-1.47); MONOCYTES PERCENT AUTO 5 % (4-13); Mean Corpuscular HGB 27.6 pg (26.0-34.0); Mean Corpuscular HGB Conc 34.6 g/dL (31.5-36.5); Mean Corpuscular Volume 80 fL (80-100); Mean Platelet Volume 11.2 fL (9.1-12.4); NEUTROPHILS ABSOLUTE AUTO 7.48 K/mm3 (1.96-9.15); NEUTROPHILS PERCENT AUTO 78 % (41-73); Platelet Count 134 K/mm3 (150-400); RDW Coefficient Variation 22.5 % (11.7-14.2); RDW Standard Deviation 52.6 fL (35.1-46.3); Red Blood Cell Count 3.59 M/mm3 (4.30-5.90); White Blood Cell Count 9.64 K/mm3 (4.00-11.30)
[2021-06-25 04:25] LABS: Albumin, Blood 1.6 g/dL (3.4-5.0); Anion Gap 14 mmol/L (6-16); Blood Urea Nitrogen 99 mg/dL (8-24); Bun/Creatinine Ratio 14.9 (12.0-20.0); CO2, Blood 23 mmol/L (21-32); Calcium, Blood 8.1 mg/dL (8.5-10.1); Chloride, Blood 100 mmol/L (98-108); Creatinine, Blood 6.64 mg/dL (0.60-1.20); Glomerular Filtration Rate 9 (60-); Glucose, Blood 133 mg/dL (70-99); Magnesium, Blood 2.3 mg/dL (1.6-2.4); Potassium, Blood 3.6 mmol/L (3.5-5.5); Sodium, Blood 137 mmol/L (136-145)
--- NOTE | 2021-06-25 05:43 | NUR ---
SUMMARY PATIENT SLEEPING OFF AND ON T/O NIGHT, OPENS EYES TO SLIGHT STIMULI, NODDING YES AND NO TO QUESTIONS AT TIMES SLOW TO ANSWER. GENERALIZED WEAKNESS MOVING RIGHT ARM MORE THAN LEFT. TRACH REMAINS IN PLACE WITH VENT PS 1/5 FIO2 30% T/O NIGHT SUCTIONING BLOOD TINGED SPUTUM VIA TRACH. DARK BLOOD WITH DEEP ORAL SUCTION. DOBHOFF CLAMPED AT 0300 FOR POSSIBLE DEBRIDEMENT OF COCCYX WOUND TODAY WITH DOCTOR PASCUAL. RECTAL TUBE REMAINS IN PLACE DRAINING BLACK/BROWN LIQUID STOOL. FARLEY DRAINING VERY SMALL AMT OF YELLOW/ORANGE URINE. HEMODIALYSIS PERMACATH TO RIGHT CHEST WALL. HYPOTENSION CONTINUES LEVOPHED TITRATED TO 5 MCG. GROOVER OPERATOR SHOWING IN AND OUT OF AFIB, WITH HEART RATE 120'S T/O NIGHT. GENERALIZED EDEMA CONTINUES WITH WEEPING YELLOW SEROUS TO SCROTUM.
--- NOTE | 2021-06-25 08:30 | NUR ---
INITIAL ASSESSMENT PATIENT APPEARED TO BE SLEEPING IN BED UPON ENTERING ROOM. PATIENT OPENS EYES TO VERBAL STIMULI. PATIENT DOES NOT FOLLOW ANY SIMPLE COMMANDS. PATIENT MOVING R ARM BUT NOT PURPOSEFULLY. PATIENT NOT MOVING ANY OTHER EXTREMITIES. SLCERA JAUNDICED. NO SIGNS OF PAIN NOTED. PATIENT HAS TEMP OF 101.1 DEGREES FAHRENHEIT. FAN AND ICE PLACED ON PATIENT. LUNGS CLEAR TO AUSCULTATION AFTER SUCTIONING TRACH. PATIENT ON SPONTANEOUS VENT SETTINGS OF 10/5 AND 30% FIO2. MODERATE AMOUNT OF THICK, BROWN SPUTUM SUCTIONED FROM TRACH. PATIENT IN JUNCTIONAL TACHYCARDIA, HR IN THE 120S. SBP 80S TO LOW 100S. LEVOPHED AT 5 MCG/ MINUTE. SCDS IN PLACE. PATIENT EDEMATOUS. ABDOMEN MODERATELY DISTENDED, SOFT, WITH HYPOACTIVE BOWEL SOUNDS NOTED. RECTAL TUBE IN PLACE DRAINING DARK BROWN, LIQUID STOOL. DOBHOFF AT 75 CM AT R NARE. TF ON HOLD SINCE 299 FOR POSSIBLE WOUND DEBRIDEMENT TODAY. FARLEY DRAINING MINIMAL AMOUNT OF KEKE COLORED URINE. DIALYSIS PATIENT. SCATTERED BRUISES NOTED. SKIN JAUNDICED. PRESSURE ULCER TO COCCYX AND R EAR. SCROTUM SWOLLEN AND WEEPING FROM AVULSION. NS INFUSING TKO. BED LOW, CALL LIGHT IN REACH. WILL CONTINUE TO MONITOR PATIENT FREQUENTLY THROUGHOUT SHIFT.
--- NOTE | 2021-06-25 12:10 | NUR ---
PATIENT HAS TEMP OF 100.2 DEGREES FAHRENHEIT. PATIENT NOW ABLE TO ANSWER YES AND NO QUESTIONS WITH NODDING AND SHAKING OF HEAD. PATIENT ABLE TO SQUEEZE WITH BILAT HANDS AND WIGGLE R TOES. PATIENT UNABLE TO MOVE LEFT FOOT AND LEG. HR IN THE 120S. SBP LOW 100S TO 1-TEENS. LEVOPHED AT 4 MCG/ MINUTE. NO OTHER ACUTE CHANGES TO NOTE ON AT THIS TIME. WILL CONTINUE TO MONITOR.
--- NOTE | 2021-06-25 13:42 | NUR ---
PATIENT JUST LEFT UNIT WITH DR. GARNER TEAM FOR WOUND DEBRIDEMENT.
--- NOTE | 2021-06-25 13:58 | NUR ---
PT TRANSPORTED TO OR 2 FROM ICU 4. RT AT BEDSIDE TO MANAGE AIRWAY. TRAVEL MONITOR IN PLACE. DR. BHATT WITH PATIENT DURING TRANSPORT.
--- NOTE | 2021-06-25 14:55 | NUR ---
PATIENT BACK FROM WOUND DEBRIDEMENT PROCEDURE. WOUND VAC IN PLACE.
--- NOTE | 2021-06-25 15:17 | NUR ---
06/25/21 1517 Manuela Ash PATIENT ON SCHEDULED ANTIBIOTICS. RECEIVED CEFEPIME 1 G 06/24 @ 1247. RECEIVED VANCOMYCIN 1.25G 06/24 @ 1500.
--- NOTE | 2021-06-25 15:21 | NUR ---
TF RESTARTED AT 25 MLS/ HOUR WITH 30 MLS WATER FLUSH Q4H.
[2021-06-25 15:39] LABS: Vancomycin, Random 17.9 ug/mL
--- NOTE | 2021-06-25 16:40 | NUR ---
PATIENT AFEBRILE. HR IN THE 120S. SBP IN THE LOW 100S. LEVOPHED INFUSING AT 2 MCG/ MINUTE. TF INFUSING AT 25 MLS/ HOUR WITH GOAL RATE OF 65 MLS/ HOUR. WOUND VAC TO DEBRIDED WOUND ON COCCYX/ SACRUM. NO OTHER ACUTE CHANGES TO NOTE ON AT THIS TIME. WILL CONTINUE TO MONITOR.
--- NOTE | 2021-06-25 18:42 | NUR ---
SHIFT SUMMARY PATIENT REMAINED RESPONDING TO VERBAL STIMULI. PATIENT MORE AWAKE AT TIMES THAN OTHERS. AT BEST, PATIENT WAS ABLE TO MOVE ALL EXTREMITIES BUT LEFT LEG AND FOOT AND WAS ABLE TO NOD AND SHAKE HEAD TO ANSWER YES AND NO QUESTIONS. PATIENT HAD TMAX OF 101.3 DEGREES FAHRENHEIT THIS SHIFT; PATIENT HAS SINCE COME DOWN. PATIENT DENIED PAIN THIS SHIFT AND DID NOT HAVE ANY SIGNS OF PAIN. LUNGS REMAINED CLEAR TO AUSCULTATION AFTER SUCTIONING OF TRACH. MODERATE AMOUNT OF THICK, BROWN SPUTUM BEING SUCTIONED FROM TRACH. PATIENT REMAINED ON SPONTANEOUS PRESSURE SUPPORT 10/5 MOST OF THE DAY BUT IS NOW AT 5/5 AND 30% FIO2. PATIENT REMAINED IN JUNCTIONAL TACHYCARDIA, HR 1-TEENS TO 130S. SBP 80S TO 1-TEENS. PATIENT REMAINS EDEMATOUS. TF RESTARTED AFTER TODAY'S PROCEDURE. RECTAL TUBE DRAINED 200 MLS OF DARK BROWN, LIQUID STOOL THIS SHIFT. FARLEY DRAINED 50 MLS OF KEKE COLORED URINE. NO DIALYSIS TODAY. NO CHANGES TO SKIN EXCEPT PATIENT TAKEN TO HAVE WOUND ON SACRUM/ COCCYX DEBRIDED BY DR. GARNER. WOUND VAC ALSO APPLIED. LEVOPHED CURRENTLY AT 2 MCG/ MINUTE. NS INFUSING TKO. PATIENT GIVEN D50 FOR LOW BLOOD SUGARS BEFORE PROCEDURE. PHYSICAL THERAPY WORKED WITH PATIENT TODAY. COMPLETE BED BATH PERFORMED. BED LOW, CALL LIGHT IN REACH. PATIENT APPEARS COMFORTABLE AT THIS TIME. REPORT WILL BE GIVEN TO ONCOMING DESIGN PRINTING MACHINE SET UP OPERATOR NURSE SHORTLY.
--- NOTE | 2021-06-25 20:12 | NUR ---
PATIENT RESTING QUIETLY, TRACH MIDLINE WITH VENT SPONT 5/5 FIO2 30% SUCTIONING THICK PIPER SPUTUM VIA TRACH, DEEP ORAL SUCTION HAS DARK BLOOD TINGED SECRETIONS. DOBHOFF IN PLACE WITH VITAL HP AT 25 CC/HR PLAN TO TITRATE AT 2330 IF CONTINUES TO KENNY TUBE FEEDING. RECTAL TUBE IN PLACE DRAINING DARK BROWN/BLACK LIQUID STOOL. DRESSING TO COCCYX WITH WOUND VAC HOLDING GOOD SUCTION. SCROTUM WITH WEEPING EDEMA CONTINUES. JAUNDICE AND GENERALIZED PITTING EDEMA CONTINUES. LEVOPHED TITRATED BACK UP TO 4 MCG DUE TO HYPOTENSION.
--- NOTE | 2021-06-25 21:18 | NUR ---
CBG 60, VITAL HP TUBE FEEDING INCREASED TO 35 CC/HR AND APPLE JUICE 118 CC GIVEN VIA DOBHOFF. WILL CONTINUE TO MONITOR GLUCOSE CLOSELY.
[2021-06-26 03:46] LABS: BASOPHILS ABSOLUTE AUTO 0.06 K/mm3 (0.00-0.23); BASOPHILS PERCENT AUTO 1 % (0-2); EOSINOPHILS PERCENT AUTO 9 % (0-6); Hematocrit 29.6 % (37.0-53.0); Hemoglobin 10.3 g/dL (13.5-17.5); IMMATURE GRAN PERCENT AUTO 3 % (0-1); LYMPHOCYTES PERCENT AUTO 7 % (21-46); MONOCYTES ABSOLUTE AUTO 0.56 K/mm3 (0.16-1.47); MONOCYTES PERCENT AUTO 6 % (4-13); Mean Corpuscular HGB 27.9 pg (26.0-34.0); Mean Corpuscular HGB Conc 34.8 g/dL (31.5-36.5); Mean Corpuscular Volume 80 fL (80-100); NEUTROPHILS ABSOLUTE AUTO 6.68 K/mm3 (1.96-9.15); NEUTROPHILS PERCENT AUTO 74 % (41-73); NRBC ABSOLUTE 0.02 K/mm3 (0.00-0.02); NRBC Auto 0.2 /100 WBC (0.0-0.2); Platelet Count 122 K/mm3 (150-400); RDW Coefficient Variation 23.5 % (11.7-14.2); RDW Standard Deviation 54.3 fL (35.1-46.3); Red Blood Cell Count 3.69 M/mm3 (4.30-5.90)
[2021-06-26 04:02] LABS: Albumin, Blood 1.5 g/dL (3.4-5.0); Anion Gap 15 mmol/L (6-16); Blood Urea Nitrogen 110 mg/dL (8-24); Bun/Creatinine Ratio 14.1 (12.0-20.0); CO2, Blood 22 mmol/L (21-32); Calcium, Blood 8.1 mg/dL (8.5-10.1); Chloride, Blood 99 mmol/L (98-108); Glomerular Filtration Rate 7 (60-); Glucose, Blood 93 mg/dL (70-99); Magnesium, Blood 2.4 mg/dL (1.6-2.4); Phosphorus, Blood 5.7 mg/dL (2.5-4.9); Potassium, Blood 3.8 mmol/L (3.5-5.5); Sodium, Blood 136 mmol/L (136-145)
--- NOTE | 2021-06-26 06:18 | NUR ---
SUMMARY PATIENT SLEEPING OFF AND ON T/O NIGHT. CONTINUES TO MOVE RIGHT ARM MORE THAN LEFT. ONCE TONIGHT TEARFUL WITH YELLOW TEARS. TRACH WITH THICK PIPER SPUTUM, AT TIMES HAVING THICK PIPER SPUTUM WITH DEEP ORAL SUCTION. VENT REMAINING ON SPONT 5/5 FIO2 30%. DOBHOFF REMAINS IN PLACE WITH VITAL HP UP TO 45 CC/HR (GOAL RATE OF 65 CC/HR). RECTAL TUBE DRAINING SMALL AMT OF DARK BROWN LIQUID STOOL. FARLEY DRAINING VERY SMALL AMT OF YELLOW/ORANGE URINE. PERMACATH REMAINS IN PLACE TO RIGHT CHEST WALL. CBG'S LOW T/O NIGHT. HYPOTENSION CONTINUES LEVOPHED TITRATED UP TO 7 MCG DURING THE NIGHT.
[2021-06-26 14:34] LABS: Vancomycin, Random 13.4 ug/mL
--- NOTE | 2021-06-26 15:50 | NUR ---
PROGRESS NOTE ASSUMED CARE OF PATIENT THIS AM. HOLLIE WAS HAD DIALYSIS TODAY WITH 5L OFF. HIS LEVOPHED STARTED AT 7 MCG BUT IS DOWN TO 4 MCG CURRENTLY. HOLLIE HAS HAD THE WOUND VAC TO HER BUTTOCK AND SECURE. HE HAS BEEN TO CT FOR HIS HEAD AND CHEST WITH CONTRAST TODAY. AWAITING RESULTS. ULTRASOUND OF LE BILAT. COMPLETE TODAY WELL R/O DVT'S. TRACH CARE COMPLETED. HE HAS NOT PUT OUT MUCH SPUTUM FROM TRACH BUT WHAT HE DID EXPECTORATE WAS CREAMY PIPER IN COLOR. HE IS STILL WEEPING FROM HIS SWOLLEN SCROTUM. MARIA FERNANDA IS EDEMATOUS 3+ ALL EXTREMETIES. NO ACUTE NEEDS AT THIS TIME. WILL CONTINUE CARE ORDERED.
--- NOTE | 2021-06-26 18:46 | NUR ---
END OF SHIFT NOTE. PATIENT STILL HAVING A FEVER 100.9 F. COOL CLOTHES APPLIED. SLIGHT BEDDING AND COOL TEMP TO ROOM. PATIENT HAD GOOD STOOL OUTPUT AND 100ML OF URINE OUT TODAY. LEVOPHED LEFT AT 4MCG/MIN. VANCO GIVEN TODAY. WOUND VAC IN PLACE TO 120 MHZ SUCT. SCAN OUT. WILL GIVE REPORT TO NEXT SHIFT
--- NOTE | 2021-06-26 19:30 | NUR ---
ASSUMED CARE OF HOLLIE, HE IS LYING IN BED ON TRACH COLLAR @ 40% FIO2, BREATHING 24-36 BREATHS PER MINUTE. RESPONDS TO VOICE AND FOLLOWS COMMANDS, HE MOVES HIS RIGHT ARM, LEFT LEG AND RIGHT LEG, HE DOESN'T MOVE HIS LEFT ARM, TRIES TO MOUTH WORDS WHEN ASKED ABOUT IT. HE NODS WHEN ASKED ABOUT PEOPLE AND REMEMBERING THEM. HE COUGHS WELL WITH THE TRACH COLLAR ON, SUCTION OF GREEN/ WHITE RETURN. HE IS REPOSITIONED HEAVILY TO THE RIGHT TO BE OFF HIS BUTTOCKS. WOUND VAC DRAINING SOME BROWN RETURN, FARLEY WITH KEKE RETURN WITH SEDIMENT OF BROWN CHUNKS IN LINE, RECTAL TUBE WITH GOOD RETURN OF BROWN LIQUID. SKIN IS YELLOW, BROWN, DAMP AND DIAPHORETIC, HE DENIES NEED FOR PAIN MEDICINE. TEMP PER PROBE 101.1 PT BECOMING RESTLESS WILL MEDICATE FOR PAIN INDICATED FROM HIS VITALS, RESTLESSNESS. NOREPINEPHRINE @ 4MCG/KG AT START, DECREASED TO 3 BUT DROPPED HIS MAP, RETURN TO 4.
--- NOTE | 2021-06-26 22:13 | NUR ---
PT'S WOUND VAC BEGAN HISSING AND ALARMING THERE IS A LEAK AFTER THIS LAST TURN TO THE LEFT. ASSISTANCE OBTAINED AND PT TURNED FURTHER TO EVALUATE. INDEED THE CLEAR BANDAGE HAD RIDDEN OFF THE SKIN, AN ABD AND OPSITE DRESSING WERE APPLIED TO REINFORCE THE DRESSING AND THE WOUND VAC BEGAN "THERAPY" AGAIN. PT CONTINUES WITH DIAPHORETIC SKIN. ATTEMPTING TO KEEP DRESSING ON AND INTACT FOR OPTIMAL DRAINAGE.
[2021-06-27 03:20] LABS: Hematocrit 28.6 % (37.0-53.0); Hemoglobin 9.8 g/dL (13.5-17.5); Mean Corpuscular HGB 27.8 pg (26.0-34.0); Mean Corpuscular HGB Conc 34.3 g/dL (31.5-36.5); Mean Corpuscular Volume 81 fL (80-100); Mean Platelet Volume 11.6 fL (9.1-12.4); Platelet Count 147 K/mm3 (150-400); RDW Coefficient Variation 24.5 % (11.7-14.2); RDW Standard Deviation 58.2 fL (35.1-46.3); Red Blood Cell Count 3.52 M/mm3 (4.30-5.90); White Blood Cell Count 7.13 K/mm3 (4.00-11.30)
[2021-06-27 03:35] LABS: Albumin, Blood 1.6 g/dL (3.4-5.0); Anion Gap 13 mmol/L (6-16); Blood Urea Nitrogen 90 mg/dL (8-24); Bun/Creatinine Ratio 13.5 (12.0-20.0); CO2, Blood 26 mmol/L (21-32); Calcium, Blood 8.2 mg/dL (8.5-10.1); Chloride, Blood 99 mmol/L (98-108); Creatinine, Blood 6.69 mg/dL (0.60-1.20); Glomerular Filtration Rate 9 (60-); Glucose, Blood 105 mg/dL (70-99); Magnesium, Blood 2.4 mg/dL (1.6-2.4); Phosphorus, Blood 5.3 mg/dL (2.5-4.9); Potassium, Blood 3.6 mmol/L (3.5-5.5); Sodium, Blood 138 mmol/L (136-145)
[2021-06-27 03:41] LABS: BAND PERCENT MAN 4 % (0-8); BASOPHILS ABSOLUTE MAN 0.07 K/mm3 (0.00-0.23); BASOPHILS PERCENT MAN 1 % (0-2); EOSINOPHILS ABSOLUTE MAN 0.35 K/mm3 (0.00-0.68); EOSINOPHILS PERCENT MAN 5 % (0-6); LYMPHOCYTES ABSOLUTE MAN 0.14 K/mm3 (0.84-5.20); LYMPHOCYTES PERCENT MAN 2 % (21-46); METAMYELOCYTE ABSOLUTE MAN 0.07 K/mm3 (0.00-0.00); METAMYELOCYTE PERCENT MAN 1 % (0-0); MONOCYTES ABSOLUTE MAN 0.85 K/mm3 (0.16-1.47); MONOCYTES PERCENT MAN 12 % (4-13); NEUTROPHILS ABSOLUTE MAN 5.63 K/mm3 (1.96-9.15); SEG NEUTROPHILS PERCENT MAN 75 % (41-73); TOTAL CELLS COUNTED 100
--- NOTE | 2021-06-27 06:29 | NUR ---
HOLLIE HAS DONE WELL THIS SHIFT, HIS FIO2 IS @ 35%, HE HAS BEEN COUGHING UP LOOSE SPUTUM, HE IS TOLERATING SUCTIONING AND NOT DROPPING HIS SATS. HE IS STILL LABILE ON HIS BLOOD PRESSURE TRIED TO TITRATE FROM 4 TO 3 AND IT CAUSES HIS MAP TO DROP. HE HAS BEEN COMMUNICATING AND ENGAGING WITH STAFF, HE CONTINUES TO MOVE ALL BUT THE LEFT ARM, ALL EXTREMETIES ARE EDEMATOUS, SKIN CONTINUES TO BE JAUNDICED, WOUND VAC TO SUCTION, RECTAL TUBE TO GRAVITY, FARLEY TO GRAVITY WITH DARK KEKE COLORED RETURN. LEVOPHED @ 4MCG/MIN, TUBE FEEDING @ 65ML/HR, TEMP MAX 101.3 NOW 98.8. NO OTHER CHANGES THIS SHIFT.
--- NOTE | 2021-06-27 07:37 | NUR ---
TOOK OVER CARE OF PT FROM AVRIL HERRING AT 0700, PT RESTING ON TRACH COLLAR 35% FiO2, 3 OF NOREPINEPHRINE. VITALS STABLE AT THIS TIME.
--- NOTE | 2021-06-27 08:26 | NUR ---
PT RR 25-35, HR 120'S, RETRACTIONS NOTED ON COLLAR BONE. PT RETURED TO PRESSURE SUPPORT ON VENTILATOR BY RT 7/5 30% FiO2 AROUND 0800. FOLLOWING, HR NOTED TO BE 102, RR AT 17 AND NOW RESTING COMFORTABLY.
--- NOTE | 2021-06-27 08:58 | NUR ---
OCCASIONAL SINGLE PVC'S NOTED ON TELEMETRY. NEW STRIP PRINTED AND PLACED IN CHART.
--- NOTE | 2021-06-27 09:30 | NUR ---
DR. KEVIN AT BEDSIDE. DISCUSSED STARTTING MIDODRINE AT 10MG, CHANGING MAP GOAL TO 60 WHILE ON PRESSERS. DISCUSSED TELEMETRY RYTHM WELL.
--- NOTE | 2021-06-27 14:42 | NUR ---
PT. BEGAN VOMITING AFTER ROLL CHANGE. ZOFRAN GIVEN PER [facility] INSTRUCTIONS. HOLD TUBE FEED UNTIL AM PER DR. KEVIN.
[2021-06-27 16:05] LABS: Vancomycin, Random 20.3 ug/mL
--- NOTE | 2021-06-27 16:25 | NUR ---
Patient did not work with physical therapy or occupational therapy today due to requiring increased pain/anxiety meds, and increasing ventilator support. Pt not able to participate.
--- NOTE | 2021-06-27 18:11 | NUR ---
PT ON 8 OF LEVO, VENT SET ON AC/VC 16/500/5/30% FiO2. TUBE FEEDING STOPPED D/T PT VOMITING. RESTERT IN AM PER DR. KEVIN. FIRST DOSE OF MIDODRINE AND DIGOXIN GIVEN TODAY. WOUND VAC DRESSING WAS ALSO CHANGED. 300 OF FMS OUTPUT. 50 OF URINE.
--- NOTE | 2021-06-27 19:41 | NUR ---
PT RECEIVED FROM NEVAEH BRANCH. PT LYING IN BED, NO RESPONDING TO VERBAL STIMULI BUT FLINCHES WHEN I TRY TO OPEN HIS EYES. HE IS ON THE VENTILATOR, AC 16 vT 500, PEEP 5, FIO2 30% VIA 8.0 TRACH, WHICH IS CLEAN/DRY/INTACT. RIGHT CHEST WITH HEMODIALYSIS CATH IN PLACE, MELVI WITH PICC LINE: INFUSING LEVOPHED @ 8MCG TURNING DOWN TO 7 RIGHT NOW. DOBBHOFF IN NARES, CLAMPED. SKIN DARK YELLOW IN COLOR, MOVES ALL EXTREMITIES AT THIS TIME. FARLEY TO GRAVITY DRAINAGE, SCROTUM AND PENIS ARE SWOLLEN AND SEEPING. RECTAL TUBE IN PLACE, WOUND VAC FUNCTIONING TO SUCTION. PT WITH MINIMAL SECRETIONS VIA TRACH, YELLOW RETURN. FEET AND HANDS ARE EDEMATOUS, PULSES DIFFICULT TO FEEL ON FEET.
--- NOTE | 2021-06-28 00:57 | NUR ---
PT STARTING TO ENGAGE MORE, STILL VERY SLEEPY. NOT FOLLOWING COMMANDS, RESTLESS WITH POSITION CHANGES. UNABLE TO GET EYES TO OPEN OR FOCUS ON STAFF.
[2021-06-28 04:02] LABS: Hematocrit 30.6 % (37.0-53.0); Hemoglobin 10.4 g/dL (13.5-17.5)
--- NOTE | 2021-06-28 04:30 | NUR ---
HOLLIE IS JUST NOW STARTING TO RESPOND TO VERBAL STIMULI AND COMMANDS. HE CONT TO BE VERY SLEEPY, HE IS A LITTLE RESTLESS, JUST WITH HIS ARMS, WRESTLE AROUND WITH HIS POSITION. HE SEEMS TO BE UNSURE IF HE IS COMFORTABLE. HE HAS COUGHED A COUPLE OF TIMES AND THE CIRCUIT HAS POPPED OFF. HE DOESN'T DROP HIS SATURATIONS.
[2021-06-28 04:38] LABS: Alanine Aminotransfer (ALT/SGP 78 U/L (12-78); Albumin, Blood 1.5 g/dL (3.4-5.0); Albumin/Globulin Ratio 0.4 (0.8-1.8); Alk Phos 199 U/L (50-136); Anion Gap 15 mmol/L (6-16); Aspartate Aminotrans (AST/SGOT 121 U/L (12-37); Blood Urea Nitrogen 108 mg/dL (8-24); Bun/Creatinine Ratio 13.8 (12.0-20.0); CO2, Blood 24 mmol/L (21-32); Calcium, Blood 8.6 mg/dL (8.5-10.1); Chloride, Blood 98 mmol/L (98-108); Globulin, Blood 3.6 g/dL (2.2-4.0); Glomerular Filtration Rate 7 (60-); Glucose, Blood 67 mg/dL (70-99); Magnesium, Blood 2.7 mg/dL (1.6-2.4); Phosphorus, Blood 6.2 mg/dL (2.5-4.9); Potassium, Blood 3.9 mmol/L (3.5-5.5); Sodium, Blood 137 mmol/L (136-145); Total Protein, Blood 5.1 g/dL (6.4-8.2)
[2021-06-28 04:40] LABS: Bilirubin, Direct 18.8 mg/dL (0.0-0.3); Bilirubin, Indirect 3.2 mg/dL (0.1-0.7)
--- NOTE | 2021-06-28 06:33 | NUR ---
HOLLIE HAS BEEN ON SPONTANEOUS SINCE AROUND MIDNIGHT, RATE 10 PEEP 5. HE HAS DONE WELL, HE HAS BEEN A LITTLE MORE RESTLESS, DIDN'T WAKE UP AND OPEN EYES OR FOLLOW COMMANDS UNTIL AROUND 0400. HE IS ANSWERING WITH HEAD NODS. HE HAD MINIMAL URINE OUTPUT, RECTAL TUBE WITH 500ML OUT, WOUND VAC INTACT. LEVOPHED @ 7MCG, ATTEMPTS TO DECREASE T/O NIGHT. TUBE FEEDING HAS REMAINED OFF. NO OTHER CHANGES.
--- NOTE | 2021-06-28 09:42 | NUR ---
ASSUMED CARE OF PT, REPORT RCV'D FROM NEVAEH MACKENZIE. PT TRACHED, VENT SETTINGS SPONTANEOUS 10/5, 30%. PT WITHDRAWS FROM PAINFUL STIMULI, INTERMITTENTLY WEAKLY FOLLOWS COMMANDS TO SQUEEZE HANDS BILATERALLY. WEAK GROSS MOVEMENT, RIGHT>LEFT. INVOLUNTARY TWITCHING T/O BODY. LEVOPHED DECREASED TO 6 MCG/MIN TO MAINTAIN MAP>60. PT HYPOGLYCEMIC THIS AM WITH BG 58, PT GIVEN 1 AMP D50, BG @84. RESTARTED TF @ 10 ML/HR PER DR. KEVIN, WILL INCREASE BY 10 MLS Q4H UNTIL GOAL REACHED. WOUND VAC PATENT. REPOSITIONING Q2 AND PRN TO MAINTAIN SKIN INTEGRITY. FARLEY AND RECTAL TUBE PATENT AND DRAINING TO GRAVITY. SEE FULL SHIFT ASSESSMENT.
--- NOTE | 2021-06-28 18:12 | NUR ---
SHIFT SUMMARY PT REMAINS ON VENTILATOR, SETTINGS REMAIN SPONT 10/5, 30%. TRACH CHANGED THIS MORNING BY DR. STEVENS. DIALYSIS REMOVED 5L. LEVOPHED PLACED ON STANDBY AT 1700, MAP REMAINS>60. PT RESPONSIVE TO VERBAL STIMULATION, FOLLOWS COMMANDS VERY WEAKLY. TUBE FEED CHANGED TO PIVOT 1.5, CURRENTLY RUNNING @20 MLS/HR WITH GOAL OF 45 ML/HR. PT HYPOGLYCEMIC SEVERAL TIMES T/O SHIFT, TOTAL OF 3 AMPS D50 GIVEN OVER THE 12 HOURS. 50 ML WATERY STOOL FROM RECTAL TUBE. 75 ML DARK KEKE URINE FROM FARLEY. WILL REPORT TO ONCOMING NURSE.
--- NOTE | 2021-06-28 22:47 | NUR ---
ASSUMED CARE AT 1900 PT LAYING IN BED ON THE VENT VIA TRACH WITH VENT SETTINGS SPONT 10/5, FIO2 30%. PT REACTIVE TO VERBAL STIMULI; ATTMEPTS TO FOLLOW DIRECTIONS BUT IS PROFOUNDLY WEAK; WILL OPEN EYES AND MOVE MOUTH DURING ORAL CARE; INVOLUNTARY TWITCHING NOTED. HR 120'S. SBP 90'S. MAP >65; LEVOPHED ON SB; SCHEDULED MIDODRINE GIVEN. PIVOT INFUSING VIA DOBHOFF AT 30ML/HR WITH 30ML WATER FLUSHES Q4HR. RECTAL TUBE IN PLACE. FARLEY DRAINING LITTLE AMOUNT OF URINE. SEE SHIFT ASSESSMENT FOR FULL ASSESSMENT.
[2021-06-29 04:36] LABS: BASOPHILS ABSOLUTE AUTO 0.06 K/mm3 (0.00-0.23); BASOPHILS PERCENT AUTO 1 % (0-2); EOSINOPHILS ABSOLUTE AUTO 0.89 K/mm3 (0.00-0.68); EOSINOPHILS PERCENT AUTO 13 % (0-6); Hematocrit 28.8 % (37.0-53.0); Hemoglobin 9.6 g/dL (13.5-17.5); IMMATURE GRAN ABSOLUTE AUTO 0.34 K/mm3 (0.00-0.10); IMMATURE GRAN PERCENT AUTO 5 % (0-1); LYMPHOCYTES PERCENT AUTO 10 % (21-46); MONOCYTES ABSOLUTE AUTO 0.71 K/mm3 (0.16-1.47); MONOCYTES PERCENT AUTO 10 % (4-13); Mean Corpuscular HGB 27.7 pg (26.0-34.0); Mean Corpuscular HGB Conc 33.3 g/dL (31.5-36.5); Mean Corpuscular Volume 83 fL (80-100); Mean Platelet Volume 10.6 fL (9.1-12.4); NEUTROPHILS ABSOLUTE AUTO 4.11 K/mm3 (1.96-9.15); NEUTROPHILS PERCENT AUTO 60 % (41-73); Platelet Count 164 K/mm3 (150-400); RDW Coefficient Variation 26.1 % (11.7-14.2); RDW Standard Deviation 74.3 fL (35.1-46.3); Red Blood Cell Count 3.47 M/mm3 (4.30-5.90); White Blood Cell Count 6.81 K/mm3 (4.00-11.30)
[2021-06-29 05:11] LABS: Albumin, Blood 1.8 g/dL (3.4-5.0); Anion Gap 14 mmol/L (6-16); Blood Urea Nitrogen 81 mg/dL (8-24); Bun/Creatinine Ratio 12.3 (12.0-20.0); CO2, Blood 24 mmol/L (21-32); Chloride, Blood 100 mmol/L (98-108); Creatinine, Blood 6.58 mg/dL (0.60-1.20); Glomerular Filtration Rate 9 (60-); Glucose, Blood 91 mg/dL (70-99); Magnesium, Blood 2.5 mg/dL (1.6-2.4); Phosphorus, Blood 5.1 mg/dL (2.5-4.9); Potassium, Blood 3.6 mmol/L (3.5-5.5); Sodium, Blood 138 mmol/L (136-145)
--- NOTE | 2021-06-29 06:17 | NUR ---
END OF SHIFT SUMMARY NO ACUTE EVENTS OVERNIGHT. PT CONT TO BE RESPONSIVE TO VERBAL STIMULI; WAS MORE SOMNULENT EARLY THIS AM. ATIVAN GIVEN ONCE FOR RESTLESSNESS AND HELPFUL. CONT TO BE ON VENT VIA TRACH WITH SETTINGS SPONT 10/5, FIO2 30%. MAX TEMP 100.0; FANS IN PLACE AND HELPING. HR 100-120. SBP 90-105; MAP >60; LEVOPHED OFF ALL SHIFT. PIVOT INFUSING VIA DOBHOFF AT GOAL OF 45ML/HR; PT TOLERATING. RECTAL TUBE AND FARLEY IN PLACE WITH SMALL AMOUNTS OF OUTPUT. CBG >70 EACH CHECK. WILL REPORT TO AM RN WHEN AVAILABLE.
--- NOTE | 2021-06-29 10:36 | NUR ---
ASSUMED CARE OF, REPORT RCV'D FROM MONSE Quick PT TRACHED, ON VENTILATOR SPONT 03/12, 30% PT HAS COARSE LUNG SOUNDS WITH MODERATE AMOUNT OF THICK YELLOW SPUTUM. PT OPENS EYES TO VERBAL STIMULATION, WEAKLY FOLLOWS COMMANDS. VITAL HIGH PROTEIN AT GOAL RATE THROUGH DOBHOFF. TEMP FARLEY DRAINING SCANT AMOUNT URINE. RECTAL TUBE PATENT AND DRAINING LIQUID BROWN STOOL. PT JAUDICED, 3+ PITTING EDEMA BILATERAL FEET. WOUND DRESSING/VAC CHANGED. DURING DRESSING CHANGE IT WAS NOTICED THAT PT'S PRESSURE ULCER WORSENING, FOUL ODOR EMINATING FROM WOUND SITE. NEW PICTURES TAKEN (SEE CHART), WOUND CLEANSED WITH SALINE AND NEW DRESSING/WOUND VAC PLACED. DR. KEVIN AWARE OF WOUND CONDITION-WILL RECONSULT DR. GARNER FOR POSSIBLE DEBRIDEMENT. VSS AT THIS TIME. SEE FULL SHIFT ASSESSMENT.
--- NOTE | 2021-06-29 21:52 | NUR ---
ASSUMED CARE AT 1900 PT LAYING IN BED ON THE VENT VIA TRACH WITH VENT SETTINGS SPONT 10/5, FIO2 30%, TV 550; MODERATE AMOUNT OF THICK SECREATIONS FROM ETT. PT LESS RESPONSIVE THAN PREVIOUS DAY BUT DOES OPEN EYES TO VERBAL STIMULATION; VERY WEAK; OCCATIONALLY AND MINIMALLY WILL RESPOND TO Y/N QUESTIONS WITH HEAD NODS. HR 100-110. SBP 90'S; MAP >60. PIVOT INFUSING VIA DOBHOFF AT 75ML/HR (GOAL) WITH 30ML WATER FLUSHES Q4HR. RECTAL TUBE AND FARLEY IN PLACE AND DRAINING TO GRAVITY. WOUND VAC IN PLACE. SEE SHIFT ASSESSMENT FOR FULL ASSESSMENT.
[2021-06-30 04:25] LABS: Hematocrit 30.7 % (37.0-53.0); Hemoglobin 10.1 g/dL (13.5-17.5); Mean Corpuscular HGB 27.5 pg (26.0-34.0); Mean Corpuscular HGB Conc 32.9 g/dL (31.5-36.5); Mean Corpuscular Volume 84 fL (80-100); NRBC ABSOLUTE 0.02 K/mm3 (0.00-0.02); NRBC Auto 0.3 /100 WBC (0.0-0.2); Platelet Count 198 K/mm3 (150-400); RDW Coefficient Variation 26.7 % (11.7-14.2); Red Blood Cell Count 3.67 M/mm3 (4.30-5.90); White Blood Cell Count 7.92 K/mm3 (4.00-11.30)
[2021-06-30 04:42] LABS: Albumin, Blood 1.6 g/dL (3.4-5.0); Anion Gap 15 mmol/L (6-16); Blood Urea Nitrogen 102 mg/dL (8-24); Bun/Creatinine Ratio 13.6 (12.0-20.0); CO2, Blood 22 mmol/L (21-32); Calcium, Blood 9.5 mg/dL (8.5-10.1); Chloride, Blood 100 mmol/L (98-108); Creatinine, Blood 7.49 mg/dL (0.60-1.20); Glomerular Filtration Rate 8 (60-); Glucose, Blood 130 mg/dL (70-99); Phosphorus, Blood 5.5 mg/dL (2.5-4.9); Potassium, Blood 3.9 mmol/L (3.5-5.5); Sodium, Blood 137 mmol/L (136-145)
--- NOTE | 2021-06-30 06:39 | NUR ---
END OF SHIFT SUMMARY PT CONT TO BE ON VENT VIA TRACH WITH VENT SETTINGS 10/5, FIO2 30%; INCREASE IN ORAL AND ETT SECREATIONS. CONT TO BE MINIMALLY RESPONSIVE; ATIVAN GIVEN ONCE FOR RESTLESSNESS; WILL OPEN EYES OCCATIONALLY. MAX TEMP 99.8. HR 100-120. LEVOPHED STARTED AT 0030 DUE TO MAP <60, LEVOPHED INFUSING AT 2MCG/MIN, SBP 90-105 SINCE LEVOPHED STARTED; HR 100-120. PIVOT INFUSING VIA DOBHOFF AT GOAL. RECTAL TUBE IN PLACE WITH 400ML OUTPUT. FARLEY IN PLACE WITH MINIMAL OUTPUT; 55ML OUT. SCAB ON RT EAR ACCIDENTALLY REMOVED DURING REPOSITIONSING; WOUND CLEAND, ANTIBIOTIC OINTMENT APPLIED. WILL REPORT TO AM RN WHEN AVAILABLE.
--- NOTE | 2021-06-30 07:17 | NUR ---
patient resting, no distress, sb via trach, hand movement shaky, very weak, vss, levophed infusing, pivot via dobhoff at 75 ml/hr, wctm
--- NOTE | 2021-06-30 07:27 | NUR ---
DR KIMBALL ROUNDED ON PATIENT, PATIENT TO HAVE DIALYSIS TODAY
--- NOTE | 2021-06-30 08:54 | NUR ---
DR STRAUSS ROUNDED, REPORTED DIALYSIS TO BE DONE TODAY, K+ 3.9, PHOS 5.5, NO CHANGES ORDERED PER DR STRAUSS MILLINERY COPYIST ROUNDED, NO CHANGES TO TUBE FEED DR KEVIN ROUNDED, REPORTED DIALYSIS TO BE DONE THIS AM, HOLDING AM MEDS FOR DIALYSIS, NO NEW ORDERS
--- NOTE | 2021-06-30 10:48 | NUR ---
dialysis in room now, patient resting, no distress
--- NOTE | 2021-06-30 13:13 | NUR ---
1240 WOUND VAC LEAKING, NEW DRESSING APPLIED, 120 MM PRESSURE NO LEAKS NOW, DIALYSIS DONE, PATIENT REPOSITIONED, RECTAL TUBE IN PLACE, 4.5L OFF, EXTREMITIES ELEVATED
--- NOTE | 2021-06-30 13:26 | NUR ---
DIALYSIS-PD PT'S WOUND VAC WAS LEAKING, ICU STAFF TURNED HIM TO THE SIDE SO THEY COULD CLEAN, REDRESS, AND RESTART THE WOUND VAC. THE POSITION WAS NOT GOOD FOR THE DIALYSIS TX. KEPT ALARMING FOR HIGH VENOUS PRESSURE. WAS AFRAID OF CLOTTING SO DC'ED TX. 2.5 HOURS TX, 4.5 LITERS UF.
--- NOTE | 2021-06-30 13:31 | NUR ---
DIALYSIS CORRECTION TO PREVIOUS CHARTING. THIS WAS NOT A PD TX.
--- NOTE | 2021-06-30 18:10 | NUR ---
PATIENT RESPONDS TO PAIN, NOT NODING HEAD YES OR NO TODAY, TWITCHING MOVEMENTS IN HANDS AND TOPNGUE, TEMP 100.7. LS DIMISHED, ORAL AND INLINE SUCTION CLEARS CONGESTION, SB 10/5 30%, INNER CANULA CHANGED TODAY, TRACH CARE DONE. HEART RATE A FLUTTER, MEDICATED WITH SCHEDULED DIGOXIN, MIDODRINE, 2-3+ PITTING EDEMA, DIALYSIS ONLY TOOK OFF 4.5 L DUE TO BP. LEVOPHED INFUSING AT 8 MCG, [id number]. DOBHOFF TUBE TO PIVOT AT 75ML/HR, RECTAL TUBE, TEMPFOLEY DRAINING TO GRAVITY, DARK KEKE URINE. PRESSURE ULCER ON SACRUM, WOUND VAC CHANGED DUE TO LOOSE STOOLS, SUCTION INTACT NOW, RECTAL TUBE IRRIGATED, NEW DRESSING TO SACRUM. POSSIBLE SECOND DEBRIDMENT. WILL RELAY TO PM RN, LALIT
--- NOTE | 2021-06-30 22:25 | NUR ---
ASSUMED CARE AT 1900/ DOBHOFF REPLACEMENT PT LAYING IN BED ON VENT VIA TRACH WITH VENT SETTINGS SPONT 10/5, FIO2 30%; MODERATE TO LARGE AMOUNT OF THICK SECREATIONS FROM ETT. PT NOT RESPONSIVE PREVIOUS DAY; REACTIVE TO PAINFUL AND NOXIOUS STIMULI; INVOLUNTARY TWITCHING NOTED; PROFOUNDLY WEAK; IS NOT ABLE TO KEEP HIMSELF FROM LEANING INTO EITHER RALE WHEN REPOSITIONED. TEMP 101.3; FAN AND ICE PACKS PLACE, TYLENOL GIVEN. HR 110-120. SBP 120-130; LEVOPHED INFUSING AT 8MCG/MIN. SEE BELOW REGARDING DOBHOFF. RECTAL TUBE AND FARLEY IN PLACE AND DRAINING TO GRAVITY. WOUND VAC IN PLACE TO COCCYX. SEE SHIFT ASSESSMENT FOR FULL ASSESSMENT. AT 2029 PT FOUND TO BE COUGHING AND OFF OF THE VENT. DOBHOFF WAS OUT OF PT MOUTH WITH LARGE AMOUNT OF FORMULA ON THE FLOOR. TF STOPPED AND DOBHOFF REMOVED. DR KEVIN NOTIFED AND STATED TO ATTEMPT TO REPLACE DOBHOFF AND IF UNSUCCESSFUL TO WAIT TO REPLACE. NEW DOBHOFF PLACED AT 2104; CHEST XRAY COMPLETED AND READ BY DR PAT. HE REPORTED TO ADVANCE DOBHOFF BY AT LEAST 2CM; DOBHOFF ADVANCED FROM 65CM TO 70CM. PM MEDS GIVEN AND PIVOT RESTARTED AT 40ML/HR. PLAN TO INCREASE TO 75ML/HR (GOAL) AT 0400 IF PT TOLERATES.
[2021-07-01 04:58] LABS: Hematocrit 30.2 % (37.0-53.0); Hemoglobin 9.9 g/dL (13.5-17.5); Mean Corpuscular HGB 27.4 pg (26.0-34.0); Mean Corpuscular HGB Conc 32.8 g/dL (31.5-36.5); Mean Corpuscular Volume 84 fL (80-100); Mean Platelet Volume 11.2 fL (9.1-12.4); NRBC ABSOLUTE 0.02 K/mm3 (0.00-0.02); NRBC Auto 0.2 /100 WBC (0.0-0.2); Platelet Count 224 K/mm3 (150-400); RDW Coefficient Variation 27.2 % (11.7-14.2); RDW Standard Deviation 77.7 fL (35.1-46.3); Red Blood Cell Count 3.61 M/mm3 (4.30-5.90); White Blood Cell Count 9.87 K/mm3 (4.00-11.30)
[2021-07-01 05:59] LABS: Albumin, Blood 2.1 g/dL (3.4-5.0); Albumin/Globulin Ratio 0.6 (0.8-1.8); Bun/Creatinine Ratio 13.8 (12.0-20.0); Calcium, Blood 10.1 mg/dL (8.5-10.1); Creatinine, Blood 6.79 mg/dL (0.60-1.20); Globulin, Blood 3.4 g/dL (2.2-4.0); Phosphorus, Blood 4.3 mg/dL (2.5-4.9); Potassium, Blood 3.6 mmol/L (3.5-5.5); Total Protein, Blood 5.5 g/dL (6.4-8.2)
[2021-07-01 06:03] LABS: Bilirubin, Direct 23.7 mg/dL (0.0-0.3); Bilirubin, Indirect 3.9 mg/dL (0.1-0.7); Bilirubin, Total 27.6 mg/dL (0.1-1.0)
--- NOTE | 2021-07-01 06:36 | NUR ---
END OF SHIFT SUMMARY PT CONT TO BE ON VENT VIA TRACH WITH VENT SETTINGS 10/5, FIO2 30%, MODERATE TO LARGE AMOUNT OF ETT AND ORAL SECREATIONS. PT MORE RESPONSIVE THIS AM THAN PREVIOUSLY TO VERBAL STIMULI AND MADE EYE CONTACT. MAX TEMP 101.3, TEMP NOW 99.6. HR 100-120. SBP 120-130; LEVOPHED TITRATED DOWN TO 6MCG/MIN. PIVOT INCREASED TO 75ML/HR (GOAL) AT 0500; PT TOLERATING WELL. RECTAL TUBE IN PLACE WITH 300ML OUTPUT. FARLEY IN PLACE WITH 30ML DARK KEKE OUTPUT. WOUND ON EAR CLEANED AND NEW PICTURES IN CHART; WOUND IS NOW A HOLE WITH YELLOW DRAINAGE, SLIGHT ODER; GAUZE AND PAPER TAPE APPLIED AFTER CLEANING. WILL REPORT TO AM RN WHEN AVAILABE.
--- NOTE | 2021-07-01 08:00 | NUR ---
ASSUMING PT CARE: PT RESTING W/ EYES CLOSED, OPENS EYES TO NAME & LOUD STIM, UNABLE TO FOLLOW COMMANDS. CONSTANT DYSKINESIA OF THE BUE & TONGUE. TRACH COLLAR ON SPONTANEOUS, PS 10, 5/30%. THICK YELLOW SECRETIONS FROM ETT. TF PLACED ON HOLD D/T PERSISTENT WRETCHING & TWO EPISODES OF VOMITING. PRN MEDS GIVEN. SEE INITIAL SHIFT DOCUMENTATION FOR FULL ASSESSMENT.
[2021-07-01] MEDS ORDERED: LORAZEPAM0.5 MG PO (12:00)
[2021-07-01] MEDS ORDERED: FUROSEMIDE20 MG PO (12:03)
[2021-07-01] MEDS ORDERED: Ventolin/Prove6.7 GM INH (12:07)
[2021-07-01] MEDS ORDERED: VALSARTAN160 MG PO (12:07)
--- NOTE | 2021-07-01 13:30 | NUR ---
UPDATE: PASCUAL UPDATED. DR HERNANDEZ ROUNDDARVIN, DISCUSSED CONCERNS FOR PT's DEC LOC TODAY COMPARED TO THE LAST FEW DAYS. PT REMAINS SOMNOLENT, UNABLE TO FOLLOW COMMANDS, DOES NOT OPEN EYES TO NAME. VERBAL ORDERS GIVEN TO HOLD ALL SEDATING MEDICATIONS. SACRAL WOUND DRESSING SOILED, CLEAR DRESSING REPLACED, & WOUND NOTED TO BE MALORDOROUS. PER DAVID REQUEST, PASCUAL UPDATED & HE WILL COME ASSESS THE WOUND & POSSIBLY DO ANOTHER SURGICAL DEBRIEDMENT.
--- NOTE | 2021-07-01 15:45 | NUR ---
UPDATE: MICHELLE ESPINOZA. PROVIDER @ BEDSIDE FOR INITIAL PT ASSESSMENT. PT PLACED IN SIDE LAYING POSITION & WOUND VAC REMOVED. MICHELLE WOULD LIKE TO TAKE THE PT TO THE OR TODAY & DO A 2nd DEBRIEDMENT. LOC UNCHANGED T/O THE SHIFT. PT DOES NOT OPEN EYES OR FOLLOW COMMANDS. WINCES TO NOX STIM. STRONG COUGH, +GAG, +SWALLOW. COPIOUS AMNT OF ETT SECRETIONS, YELLOW/THICK. PT CONTINUES ON TRACH COLLAR @ 8L/MIN W/ SPO2 >92%. WILL CALL RT TO PLACE PT BACK ON VENT ONCE READY TO GO TO THE OR.
--- NOTE | 2021-07-01 16:24 | NUR ---
Echocardiogram completed.
--- NOTE | 2021-07-01 16:58 | NUR ---
UPDATE: PT TO OR. OR CREW @ BEDSIDE. DAUGHTER CALLED & UPDATED, CONSENT RECEIVED. PT TO OR FOR DEBRIEDMENT
--- NOTE | 2021-07-01 18:21 | NUR ---
SHIFT SUMMARY: PT RETURNS FROM OR @ 1745. SACRAL WOUND WAS DEBRIEDED & DRESSED W/ WET TO DRY DRESSING. PT CONTINUES TO BE SOMNOLENT, UNRESPONSIVE TO VERBAL STIMULI. TRACH PUT BACK ON THE VENT ON SPONTANEOUS PS 10, 5/30%. TF RESTARTED W/ NEW FORMULA @ 20ml/hr, PT TOLERATING WELL THUS FAR. MAPs >65 w/ LEVOPHED @ 5mcg/min. DRESSING TO R EAR CHANGED. 60ml UOP.
--- NOTE | 2021-07-01 20:33 | NUR ---
ASSUMED CARE @1900 PATIENT NOT OPENING EYES, RESPONDS TO PAINFUL STIMULI, MOVES UPPER EXTREMETIES AND WIGGLES TOES SPONTANEUOUSLY. PATIENT UNABLE TO FOLLOW COMMANDS. 02 SATS 98% ON VENT VIA TRACH SPONT PS 10/5 30% FI02. PIPER SPUTUM SUCTIONED AND SENT TO LAB. LUNGS SOUND CLEAR TO DIMINISHED. HR ST AT TIME OF ASSESSMENT APPEARS A.FLUTTER @106. BP STABLE WITH LEVOPHED INF 5 MCG/MIN. TUBE FEED INF VIA DOBHOFF TWOCAL HN @20 MLS/HR WOTH 30 ML FLUSHES Q4 HOURS. WILL INCREASE RATE PER ORDERS. RECTAL TUBE DRAINING BROWN LIQUID STOOL. FARLEY DRAINING SMLL AMOUNT OF YELLOW/ORANGE URINE. ORAL CARE DONE AND PATIENT REPOSITIONED. MEPILEX TO RIGHT HIP FOR PREVENTION.
--- NOTE | 2021-07-01 22:36 | NUR ---
TUBE FEED INCREASED TO 30 MLS/HR AT 2200.
--- NOTE | 2021-07-02 02:01 | NUR ---
TUBE FEED INCREASED TO 40 MLS/HR. PATIENT TOLERATING WELL.
--- NOTE | 2021-07-02 02:50 | NUR ---
TUBE FEED PLACED ON STANDBY, PATIENT COUGHING AND BURPING. MEDICATED FOR NAUSEA.
[2021-07-02 03:41] LABS: Hematocrit 30.4 % (37.0-53.0); Hemoglobin 10.1 g/dL (13.5-17.5); Mean Corpuscular HGB Conc 33.2 g/dL (31.5-36.5); Mean Corpuscular Volume 84 fL (80-100); Mean Platelet Volume 11.4 fL (9.1-12.4); NRBC ABSOLUTE 0.03 K/mm3 (0.00-0.02); NRBC Auto 0.3 /100 WBC (0.0-0.2); Platelet Count 251 K/mm3 (150-400); RDW Coefficient Variation 27.9 % (11.7-14.2); RDW Standard Deviation 80.7 fL (35.1-46.3); Red Blood Cell Count 3.61 M/mm3 (4.30-5.90); White Blood Cell Count 10.19 K/mm3 (4.00-11.30)
[2021-07-02 03:56] LABS: Albumin, Blood 1.8 g/dL (3.4-5.0); Anion Gap 15 mmol/L (6-16); Blood Urea Nitrogen 115 mg/dL (8-24); Bun/Creatinine Ratio 14.5 (12.0-20.0); CO2, Blood 23 mmol/L (21-32); Calcium, Blood 10.7 mg/dL (8.5-10.1); Chloride, Blood 97 mmol/L (98-108); Creatinine, Blood 7.93 mg/dL (0.60-1.20); Glomerular Filtration Rate 7 (60-); Glucose, Blood 90 mg/dL (70-99); Magnesium, Blood 2.9 mg/dL (1.6-2.4); Phosphorus, Blood 5.7 mg/dL (2.5-4.9); Potassium, Blood 4.2 mmol/L (3.5-5.5); Sodium, Blood 135 mmol/L (136-145)
--- NOTE | 2021-07-02 05:40 | NUR ---
SHIFT SUMMARY PATIENT STILL NOT OPENING EYES. RESPONDS TO PAINFUL STIMULI. MOVES ALL EXTREMETIES BUT UNABLE TO FOLLOW COMMANDS. MOVES RIGHT UPPER EXTREMETIY MORE THAN LEFT. 02 SATS 97% ON VENT VIA TRACH 03/12 FI02 30%. RR 20s-30s. SUCTIONED MODERATE AMOUNT OF PIPER SPUTUM MOST THE NIGHT. PATIENT APPEARED TO BE NAUSEOUS AND NOT TOLERATING TUBE FEED WHICH WAS PLACED IN STANDBY AND PATIENT MEDICATED FOR NAUSEA. AT APPROX 0500 PATIENT STARTED VOMITTING TUBE FEED. TUBE FEED SUCTIONED VIA TRACH WELL. TRACH DRESSING AND COLLAR CHANGED. PATIENTS HR ST 105. BP STABLE WITH MAP >65 ON 2MCG/MIN OF LEVOPHED. RECTAL TUBE DRAINING BROWN LIQUID STOOL. FARLEY DRAINING SMALL AMOUNT OF KEKE URINE. PATIENT REPOSITIONED Q2 HOURS. MEDICATED PER EMAR FOR PAIN.
--- NOTE | 2021-07-02 08:30 | NUR ---
ASSUMING PT CARE: PT LAYING IN BED W/ EYES CLOSED. DOES NOT OPEN EYES OR RESPOND TO VERB STIMULI. WINCES W/ ORAL CARE. NO INTENTIONAL MOVMENT OBSERVED. DYSKINESIA CONTINUES, SEEMS TO BE INCREASED WHEN PT IS UNCOMFORTABLE. AT REST, PT IS STILL. TRACH TO VENT, SPONTANEOUS 10/5 30%. THICK YELLOW SECRETIONS FROM ETT. INTERMITTENT PRODUCTIVE COUGH. ABD SOFT, DISTENDED. TF ON HOLD D/T EMESIS LAST NOC, WILL ADDRESS W/ MD TODAY. JAUNDICE APPEARS WORSE TODAY THAN YESTERDAY. SACRAL WOUND DRESSING INTACT W/ WET-DRY DRESSING, SCANT SEROSANGUINOUS DRAINAGE. PLAN FOR DIALYSIS TODAY & TO ADDRESS NUTRITION W/ MD & DIETARY.
--- NOTE | 2021-07-02 10:59 | NUR ---
UPDATE: DIALYSIS DIALYSIS @ BEDSIDE. GOAL TO TAKE OFF 5.5L. PT IS TOLERATING WELL THUS FAR. LEVOPHED TITRATED UP TO 8mcg/min & MAPs MAINTAINING >65. HR REMAINS, low 100s, SINUS TACH. NO CHANGE IN MENTATION.
--- NOTE | 2021-07-02 12:30 | NUR ---
DIALYSIS COMPLETE. PT TOLERATED WELL. VS STABLE T/O. MAPs MAINTAINED >65 w/ LEVOPHED @ 8mcg/min. PER CHOIR DIRECTOR, 5.6L TAKEN OFF. DISCUSSED NUTRITION CONCERNS W/ DIETARY. TPN IS NOT IDEAL CONSIDERING PT's ORGAN DYSFUNCTION, HOWEVER IF ABLE, DIETARY SUGGESTS ADVANCING THE DOBHOFF FURTHER PAST THE STOMACH & INTO THE INTESTINE. THIS MAY HELP THE PT TOLERATE FEEDINGS. WILL DISCUSS W/ GOSMAN ONCE AVAILABLE.
--- NOTE | 2021-07-02 14:45 | NUR ---
DISCUSSED ADVANCING DEA Thrasher/ DAVID. HE DOES NOT BELIEVE THIS WOULD NOT BE BENEFICIAL & THE MOST BENEFICIAL OPTION WOULD BE A SURGICAL GI INTERVENTION, WHICH WILL NOT BE ADDRESSED AT THIS POINT. CALLS PUT OUT TO BOTH PT's SON & DAUGHTER TO DISCUSS PT's PROGRESSION, NO RETURN CALL OF YET.
--- NOTE | 2021-07-02 18:01 | NUR ---
SHIFT SUMMARY: PT RESTING IN BED W/ EYES CLOSED, NO POSITIVE PROGRESSION IN MENTATION. PT BEGINING TO HAVE MORE SUSTAINED EPISODES OF DYSKINESIA & AGITATION, COUGHING AGAINST ETT, & RESTLESS IN BED. PRN FENTANYL WAS SOMEWHAT HELPFUL. NO TRACH COLLAR TRIAL TODAY D/T PT AGITATION. VENT SETTINGS UNCHANGED. SACRAL WOUND DRESSING CHANGED - NO EXUDATE, MOD AMNT OF BLEEDING TO GABINO WOUND. WET-DRY DRESSING PLACED. DIALYSIS DONE TODAY, 5.6L TAKEN OFF. LEVOPHED UNABLE TO BE TITRATED OFF, NOW 4mcg/min. TF TO REMAIN OFF FOR NOW. SEE PREVIOUS NOTATION FOR PT PROGRESSION.
--- NOTE | 2021-07-02 20:16 | NUR ---
ASSUMED CARE AT 1900 PATIENT IS ALERT MOVING SPONTANEOUSLY WITH HIS EYES OPEN. UNABLE TO TRACK WITH HIS EYES AND UNABLE TO FOLLOW COMMANDS. DYSKENESIA LIKE MOVEMENTS WITH EXTREMETIES, HEAD, AND TONGUE. 02 SATS 97% ON VENT VIA TRACH SPONT PS 10/5 FI02 30%. LUNGS SOUND CLEAR TO DIM. SUCTIONING PIPER SPUTUM VIA TRACH. HR ST 110s. BP STABLE ON 1 MCG/MIN OF LEVOPHED. TUBE FEED ON SB DUE TO EMESIS LAST NIGHT/ EARLY AM. RECTAL TUBE DRANING LIQUID BROWN STOOL. FARLEY DRAINING SMALL AMOUNT OF KEKE/ORANGE URINE. PATIENT MEDICATED FOR PAIN PER EMAR AND REPOSITIONED. SEE SHIFT ASSESSMENT FOR MORE DETAIL.
[2021-07-03 04:13] LABS: Hematocrit 32.1 % (37.0-53.0); Hemoglobin 10.4 g/dL (13.5-17.5); Mean Corpuscular HGB 27.4 pg (26.0-34.0); Mean Corpuscular HGB Conc 32.4 g/dL (31.5-36.5); Mean Corpuscular Volume 85 fL (80-100); NRBC ABSOLUTE 0.07 K/mm3 (0.00-0.02); NRBC Auto 0.5 /100 WBC (0.0-0.2); Platelet Count 302 K/mm3 (150-400); RDW Coefficient Variation 28.8 % (11.7-14.2); RDW Standard Deviation 82.6 fL (35.1-46.3); Red Blood Cell Count 3.79 M/mm3 (4.30-5.90); White Blood Cell Count 13.09 K/mm3 (4.00-11.30)
[2021-07-03 04:27] LABS: International Normalized Ratio 2.91; Prothrombin Time Results 28.5 Sec (9.7-11.5)
[2021-07-03 04:39] LABS: BAND PERCENT MAN 7 % (0-8); BASOPHILS PERCENT MAN 0 % (0-2); EOSINOPHILS ABSOLUTE MAN 0.39 K/mm3 (0.00-0.68); EOSINOPHILS PERCENT MAN 3 % (0-6); LYMPHOCYTES ABSOLUTE MAN 0.39 K/mm3 (0.84-5.20); LYMPHOCYTES PERCENT MAN 3 % (21-46); METAMYELOCYTE ABSOLUTE MAN 0.26 K/mm3 (0.00-0.00); METAMYELOCYTE PERCENT MAN 2 % (0-0); MONOCYTES ABSOLUTE MAN 1.17 K/mm3 (0.16-1.47); MONOCYTES PERCENT MAN 9 % (4-13); MYELOCYTE ABSOLUTE MAN 0.39 K/mm3 (0.00-0.00); MYELOCYTE PERCENT MAN 3 % (0-0); NEUTROPHILS ABSOLUTE MAN 10.21 K/mm3 (1.96-9.15); PROMYELOCYTE ABSOLUTE MAN 0.26 K/mm3 (0.00-0.00); PROMYELOCYTE PERCENT MAN 2 % (0-0); SEG NEUTROPHILS PERCENT MAN 71 % (41-73); TOTAL CELLS COUNTED 100
[2021-07-03 04:40] LABS: Albumin, Blood 1.7 g/dL (3.4-5.0); Albumin/Globulin Ratio 0.5 (0.8-1.8); Bilirubin, Total 23.9 mg/dL (0.1-1.0); Bun/Creatinine Ratio 15.1 (12.0-20.0); Calcium, Blood 11.1 mg/dL (8.5-10.1); Creatinine, Blood 6.57 mg/dL (0.60-1.20); Globulin, Blood 3.7 g/dL (2.2-4.0); Magnesium, Blood 2.9 mg/dL (1.6-2.4); Phosphorus, Blood 5.5 mg/dL (2.5-4.9); Potassium, Blood 4.1 mmol/L (3.5-5.5); Total Protein, Blood 5.4 g/dL (6.4-8.2)
--- NOTE | 2021-07-03 06:00 | NUR ---
SHIFT SUMMARY PATIENT OPENS EYES AND MOVES ALL EXTREMETIES SPONTANEUOSLY. PATIENT DID MAKE SOME PURPOSEFUL EYE CONTACT AT TIMES THROUGH THE NIGHT BUT NOT CONSISTENT. UNABLE TO FOLLOW COMMANDS. RIGHT ARM STRONGER THAN THE LEFT. DYSKINESIA LIKE MOVEMENTS IN EXTREMETIES AND TONGUE. 02 SATS >95% ON VENT VIA TRACH, SPONT PS 10/5 FI02 30%. LARGE AMOUNT OF PIPER SPUTUM SUCTIONED VIA TRACH. LUNGS CLEAR TO DIM. HR ST 100-115. BP STABLE ON LOW DOSE OF LEVOPHED 1-3 MCG/MIN. BOWEL TONES ACTIVE X4. RECTAL TUBE DRAINING LIQUID BROWN STOOL. FARLEY OUTPUT 15 MLS, YELLOW/ORANGE URINE. CHANGED WET TO DRY DRESSING ON COCCYX. REPOSITIONED Q2 HOURS. MEDICATED FOR PAIN PER EMAR. MEDICATED FOR LOW BLOOD GLUCOSE PER PROTOCOL.
--- NOTE | 2021-07-03 07:15 | NUR ---
Assumed care of pt at 0700. Bedside report received from Sonia HERRING. Pt is not receiving sedation, however intermittently receives fentanyl for pain. Occasionally makes eye contact and follows commands such as "open your mouth" when oral care is being performed. On ventilator via trach spontaneous with PS 10/5 and 30% FiO2.
--- NOTE | 2021-07-03 10:40 | NUR ---
Plan of care discussed with Dr Finn and Dr Mccollum. Per Dr Finn, hold AM medications. Ok for pt to receive midodrine and phosphate binder. Plan for ABD xray. Senna to be discontinued as pt continues to pass stool through rectal tube. Per Dr Mccollum, continue with wet to dry dressing changes on sacrum once per shift.
--- NOTE | 2021-07-03 10:43 | NUR ---
Pt on T-piece for trach with 26% FiO2. SpO2 90% or greater.
--- NOTE | 2021-07-03 13:11 | NUR ---
Call placed to Dr Finn to notify provider of CBG 60. 1/2 amp D50 given, D10 drip started at 50 mL/hr. Plan to check CBG Q4H.
--- NOTE | 2021-07-03 14:47 | NUR ---
ABD xray complete. Pt remains sitting up in chair. Remains on trach collar.
--- NOTE | 2021-07-03 16:00 | NUR ---
Patient back to bed from chair and sacral wound dressing changed.
--- NOTE | 2021-07-03 17:57 | NUR ---
07/03/21 1757 Hansel Fernandez SEDATION MONITORED BY PASSENGER SERVICE AGENTNEVAEH ALONSO. 3-LEAD EKG REVIEWED WITH PHYSICIAN PRIOR TO START OF PROCEDURE. History, Chart, Medications and Allergies reviewed before start of procedure. MONITOR INTACT WITH CONTINUOUS PULSE OXIMETRY AND INTERMITTENT BP. O2 VIA N/C INTACT THROUGHOUT SEDATION/PROCEDURE.
--- NOTE | 2021-07-03 18:00 | NUR ---
Patient taken off T piece and placed back on full support on ventilator so he can be sedated for endoscopy. Purpose of endoscopy is to advance dohboff tube into duodenum. Vent settings currently ACVC 12/450/5/30%. Propofol at 40 mcg/kg/min. Levophed turned on and currently at 5 mcg/min.
--- NOTE | 2021-07-03 19:00 | NUR ---
SUMMARY Neuro: Propofol turned on for procedural sedation, it is now off. Pt responsive to painful stimulus. Movement noted to all extremities. Cough and gag present. Pupils 3 mm, equal and brisk reaction to light. Musculoskeletal: Requires full assistance with ADLs. Repostioned Q2H. Respiratory: Lungs clear t/o, diminished in bases. On trach collar of majority of day. Placed back on ventilator for endoscopy. 8.0 shiley trach, cuffed, nonfenestrated. Vent settings ACVC 12/450/5/30%. SpO2 90% or greater. Large amount of secretions suctioned this morning but not as much later in day. Cardiac: Atrial flutter, rate ranging from 95-110. Levophed restarted when propofol restarted. Currently at 2 mcg/min. Receeding edema. GI: Dobhoff advanced to duodenum by endoscopy team. Flushes without difficulty. Secured to right nare at 78 cm marking. TF restarted per orders. Rectal tube remains in place. Only 25 mL output this shift. : 25 mL urine output this shift, bright orange. Skin: Unchanged from initial assessment. Sacrum dressing changed. Large amount of serosanguinous drainage. Psychosocial: Family updated by Dr Finn. MADDIE pt's psychosocial status.
--- NOTE | 2021-07-03 22:00 | NUR ---
ASSUMED CARE AT 1900 PT LAYING IN BED ON VENT VIA TRACH WITH VENT SETTINGS AC/VC 12/450/5/30%. PT OPENES EYES TO VERBAL STIMULI BUT WAS UNABLE TO ANSWER Y/N QUESTIONS OR FOLLOW DIRECTIONS; HE MADE EYE CONTACT AND ATTEMPTED TO FOLLOW DIRECTIONS; NO SEDATION AT THIS TIME; INVOLUNTARY MOVEMENT NOTED. TEMP 99.1. HR 100-110. SBP 100'S; MAP >60; LEVOPHED INFUSING AT 2MCG/MIN. DOBHOFF IN PLACE WITH TWOCAL HN INFUSING AT 20ML/HR WITH 30ML WATER FLUSHES Q4HR; TOLERATING TF, NO BELCHING. RECTAL TUBE AND FARLEY IN PLACE DRAINING TO GRAVITY. SEE SHIFT ASSESSMENT FOR FULL ASSESSMENT.
[2021-07-04 04:53] LABS: Hematocrit 31.5 % (37.0-53.0); Mean Corpuscular HGB 27.5 pg (26.0-34.0); Mean Corpuscular HGB Conc 31.7 g/dL (31.5-36.5); Mean Corpuscular Volume 87 fL (80-100); Mean Platelet Volume 10.5 fL (9.1-12.4); NRBC ABSOLUTE 0.13 K/mm3 (0.00-0.02); NRBC Auto 0.8 /100 WBC (0.0-0.2); Platelet Count 278 K/mm3 (150-400); RDW Coefficient Variation 28.5 % (11.7-14.2); Red Blood Cell Count 3.63 M/mm3 (4.30-5.90); White Blood Cell Count 15.83 K/mm3 (4.00-11.30)
[2021-07-04 05:05] LABS: International Normalized Ratio 2.07; Prothrombin Time Results 20.7 Sec (9.7-11.5)
[2021-07-04 05:59] LABS: Alanine Aminotransfer (ALT/SGP 58 U/L (12-78); Albumin, Blood 1.6 g/dL (3.4-5.0); Albumin/Globulin Ratio 0.4 (0.8-1.8); Alk Phos 196 U/L (50-136); Anion Gap 15 mmol/L (6-16); Aspartate Aminotrans (AST/SGOT 141 U/L (12-37); Blood Urea Nitrogen 123 mg/dL (8-24); CO2, Blood 23 mmol/L (21-32); Calcium, Blood 11.2 mg/dL (8.5-10.1); Chloride, Blood 98 mmol/L (98-108); Creatinine, Blood 7.69 mg/dL (0.60-1.20); Globulin, Blood 3.6 g/dL (2.2-4.0); Glomerular Filtration Rate 7 (60-); Glucose, Blood 108 mg/dL (70-99); Phosphorus, Blood 6.5 mg/dL (2.5-4.9); Potassium, Blood 4.1 mmol/L (3.5-5.5); Sodium, Blood 136 mmol/L (136-145); Total Protein, Blood 5.2 g/dL (6.4-8.2); Triglycerides 287 mg/dL (30-160)
[2021-07-04 06:10] LABS: Bilirubin, Direct 19.5 mg/dL (0.0-0.3); Bilirubin, Indirect 3.5 mg/dL (0.1-0.7)
--- NOTE | 2021-07-04 06:43 | NUR ---
END OF SHIFT SUMMARY NO ACUTE EVENTS OVER NIGHT. PT CONT TO BE ON THE VENT VIA TRACH WITH VENT SETTINGS AC/VC 12/450/5/30%; CONT TO HAVE THICK YELLOW SECREATIONS FROM TRACH AND CLEAR ORAL SECREATIONS. PT ABLE TO OPEN EYES AND MAKE EYE CONTACT BUT DID NOT FOLLOW DIRECTIONS. MAX TEMP 99.9; FAN ON PT AND TEMP CAME DOWN. HR 90-105. SBP 90-120; LEVOPHED ON SB SINCE 2229. TWOCAL TF INCREASED TO 30ML/HR AT 0500. RECTAL TUBE IN PLACE WITH 50ML OUTPUT. FARLEY IN PLACE WITH 33ML OUTPUT. WILL REPORT TO AM RN WHEN AVAILABLE.
[2021-07-04 07:00] LABS: BAND PERCENT MAN 4 % (0-8); BASOPHILS ABSOLUTE MAN 0.15 K/mm3 (0.00-0.23); BASOPHILS PERCENT MAN 1 % (0-2); EOSINOPHILS ABSOLUTE MAN 0.94 K/mm3 (0.00-0.68); EOSINOPHILS PERCENT MAN 6 % (0-6); LYMPHOCYTES ABSOLUTE MAN 0.63 K/mm3 (0.84-5.20); LYMPHOCYTES PERCENT MAN 4 % (21-46); MONOCYTES ABSOLUTE MAN 1.58 K/mm3 (0.16-1.47); MONOCYTES PERCENT MAN 10 % (4-13); MYELOCYTE ABSOLUTE MAN 0.63 K/mm3 (0.00-0.00); MYELOCYTE PERCENT MAN 4 % (0-0); NEUTROPHILS ABSOLUTE MAN 11.87 K/mm3 (1.96-9.15); SEG NEUTROPHILS PERCENT MAN 71 % (41-73); TOTAL CELLS COUNTED 100
--- NOTE | 2021-07-04 07:05 | NUR ---
ASSUMED CARE OF PT AT 0705. PT STABLE ON CURRENT INTERVENTION. PT IS ON PRESSURE SUPPORT 5/5 30% FiO2. NO DRIPS CURRENTLY RUNNING.
--- NOTE | 2021-07-04 09:29 | NUR ---
ROCEPHIN HELD UNTIL HD COMPLETE.
--- NOTE | 2021-07-04 13:09 | NUR ---
PT PLACED ON HEATED T PIECE BY RT.
--- NOTE | 2021-07-04 16:01 | NUR ---
PT HAD APNEIC EPISODE ON TRACH COLLAR, DESAT TO 58%, PT BAGGED UNIT RT PLACED PT BACK ON PRESSURE SUPPORT 5/5 30%. PT QUICKLY STABILIZED, SATS RETURNED TO 99%. DR. HERNANDEZ AT BEDSIDE TO SEE PT.
--- NOTE | 2021-07-04 16:04 | NUR ---
Spoke to pt's daughter Jennifer by phone today. We discussed pt's course over the past 30 days. Jennifer is aware the patient's health is worsening. She states, "He wouldn't want to live like this". We decided to talk more tomorrow, as I received permission from Norma, charge nurse for Jennifer and brother to come see pt tomorrow prior deciding on any changes to care.
--- NOTE | 2021-07-04 18:29 | NUR ---
PT ON PRESSURE SUPPORT 10/5 30% FiO2. TEMP 100.1 F. LABILE RESPONSIVENESS FROM PT BUT WILL NOD HEAD APPROPRIATELY. DYSKINESIA STILL PRESENT. DEPENDENT EDEMA IN EXTREMETIES AND JAUNDICED.
[2021-07-04 19:39] LABS: Hematocrit 31.8 % (37.0-53.0); Hemoglobin 10.3 g/dL (13.5-17.5); Mean Corpuscular HGB 28.4 pg (26.0-34.0); Mean Corpuscular HGB Conc 32.4 g/dL (31.5-36.5); Mean Corpuscular Volume 88 fL (80-100); Mean Platelet Volume 10.6 fL (9.1-12.4); NRBC ABSOLUTE 0.08 K/mm3 (0.00-0.02); NRBC Auto 0.5 /100 WBC (0.0-0.2); Platelet Count 260 K/mm3 (150-400); RDW Coefficient Variation 28.8 % (11.7-14.2); RDW Standard Deviation 84.1 fL (35.1-46.3); Red Blood Cell Count 3.63 M/mm3 (4.30-5.90); White Blood Cell Count 16.21 K/mm3 (4.00-11.30)
[2021-07-04 19:54] LABS: Bun/Creatinine Ratio 15.7 (12.0-20.0); Calcium, Blood 11.3 mg/dL (8.5-10.1); Creatinine, Blood 5.94 mg/dL (0.60-1.20); Magnesium, Blood 2.6 mg/dL (1.6-2.4); Phosphorus, Blood 4.9 mg/dL (2.5-4.9); Potassium, Blood 3.6 mmol/L (3.5-5.5)
[2021-07-04 20:16] LABS: BAND PERCENT MAN 7 % (0-8); BASOPHILS ABSOLUTE MAN 0.16 K/mm3 (0.00-0.23); BASOPHILS PERCENT MAN 1 % (0-2); EOSINOPHILS ABSOLUTE MAN 0.64 K/mm3 (0.00-0.68); EOSINOPHILS PERCENT MAN 4 % (0-6); LYMPHOCYTES ABSOLUTE MAN 0.81 K/mm3 (0.84-5.20); LYMPHOCYTES PERCENT MAN 5 % (21-46); METAMYELOCYTE ABSOLUTE MAN 1.62 K/mm3 (0.00-0.00); METAMYELOCYTE PERCENT MAN 10 % (0-0); MONOCYTES ABSOLUTE MAN 1.94 K/mm3 (0.16-1.47); MONOCYTES PERCENT MAN 12 % (4-13); MYELOCYTE ABSOLUTE MAN 1.78 K/mm3 (0.00-0.00); MYELOCYTE PERCENT MAN 11 % (0-0); NEUTROPHILS ABSOLUTE MAN 9.23 K/mm3 (1.96-9.15); SEG NEUTROPHILS PERCENT MAN 50 % (41-73); TOTAL CELLS COUNTED 100
--- NOTE | 2021-07-04 21:51 | NUR ---
ASSUMED CARE AT 1900 PT LAYING IN BED ON VENT VIA TRACH WITH VENT SETTINGS SPONT 10/5, FIO2 30%; MODERATE AMOUNT OF THIC YELLOW SECREATIONS FROM TRACH. PT REACTIVE TO NOXIOUS AND PAINFUL STIMULI; OCCATIONALLY OPENS EYES SPONTANIOUSLY; DYSKINESIA NOTED AND IS MORE ACTIVE WHEN STIMULATED. TEMP 100.4; FAN IN PLACE. HR 80'S; HR DECREASED FROM 100 TO 63 DURING ORAL CARE AND STEADILY CAME UP TO 80'S. SBP 110' LEVOPHED INFUSING AT 2MCG/MIN. TwoCal TF INFUSING VIA DOBHOFF AT 50ML/HR (GOAL) WITH 30ML WATER FLUSHES Q4HR. RECTAL TUBE AND FARLEY IN PLACE AND DRAINING TO GRAVITY. SEE SHIFT ASSESSMENT FOR FULL ASSESSMENT.
[2021-07-05 04:23] LABS: Hematocrit 34.3 % (37.0-53.0); Mean Corpuscular HGB 27.9 pg (26.0-34.0); Mean Corpuscular HGB Conc 32.1 g/dL (31.5-36.5); Mean Corpuscular Volume 87 fL (80-100); NRBC ABSOLUTE 0.04 K/mm3 (0.00-0.02); NRBC Auto 0.3 /100 WBC (0.0-0.2); Platelet Count 275 K/mm3 (150-400); RDW Coefficient Variation 28.6 % (11.7-14.2); RDW Standard Deviation 84.1 fL (35.1-46.3); Red Blood Cell Count 3.94 M/mm3 (4.30-5.90); White Blood Cell Count 15.62 K/mm3 (4.00-11.30)
[2021-07-05 04:37] LABS: International Normalized Ratio 1.44; Prothrombin Time Results 14.8 Sec (9.7-11.5)
[2021-07-05 04:54] LABS: Albumin, Blood 1.7 g/dL (3.4-5.0); Albumin/Globulin Ratio 0.4 (0.8-1.8); Bilirubin, Total 24.8 mg/dL (0.1-1.0); Bun/Creatinine Ratio 16.1 (12.0-20.0); Calcium, Blood 11.6 mg/dL (8.5-10.1); Creatinine, Blood 6.21 mg/dL (0.60-1.20); Globulin, Blood 4.1 g/dL (2.2-4.0); Phosphorus, Blood 5.7 mg/dL (2.5-4.9); Potassium, Blood 4.1 mmol/L (3.5-5.5); Total Protein, Blood 5.8 g/dL (6.4-8.2)
[2021-07-05 05:07] LABS: BAND PERCENT MAN 3 % (0-8); BASOPHILS ABSOLUTE MAN 0.15 K/mm3 (0.00-0.23); BASOPHILS PERCENT MAN 1 % (0-2); EOSINOPHILS PERCENT MAN 0 % (0-6); LYMPHOCYTES % ATYPICAL MANUAL 1 % (0-0); LYMPHOCYTES ABSOLUTE MAN 1.87 K/mm3 (0.84-5.20); LYMPHOCYTES PERCENT MAN 11 % (21-46); METAMYELOCYTE ABSOLUTE MAN 0.31 K/mm3 (0.00-0.00); METAMYELOCYTE PERCENT MAN 2 % (0-0); MONOCYTES ABSOLUTE MAN 0.93 K/mm3 (0.16-1.47); MONOCYTES PERCENT MAN 6 % (4-13); MYELOCYTE ABSOLUTE MAN 0.46 K/mm3 (0.00-0.00); MYELOCYTE PERCENT MAN 3 % (0-0); NEUTROPHILS ABSOLUTE MAN 11.87 K/mm3 (1.96-9.15); SEG NEUTROPHILS PERCENT MAN 73 % (41-73); TOTAL CELLS COUNTED 100
[2021-07-05 06:11] LABS: HBSAG SCREEN Negative (Negative)
--- NOTE | 2021-07-05 06:36 | NUR ---
END OF SHIFT SUMMARY NO ACUTE EVENTS OVER NIGHT. PT CONT TO BE ON VENT VIA TRACH WITH VENT SETTINGS SPONT 10/5, FIO2 30%, Vt 500'S; MODERATE AMOUNT OF THICK SECREATIONS FROM TRACK. PT IS MORE ALERT THAN PREVIOUSLY, OPENING EYES MORE FREQUENTLY BUT DOES NOT ANSWER Y/N QUESTIONS OR FOLLOWS DIRECTIONS. MAX TEMP 100.4; FAN ON PT AND HELPFUL. HR 80-100; ONCE EPISODE OF KEILA DOWN TO 60 FROM 100. SBP 110-130; LEVOPHED INFUSING AT 2MCG/MIN. TWOCAL TF INFUSING AT GOAL. RECTAL TUBE IN PLACE WITH 1000ML OUTPUT; RECTAL BAG HAD TO BE BURPED TWICE. FARLEY IN PLACE WITH 45ML OUTPUT. SACRAL DRESSING CHANGED. WILL REPORT TO AM RN WHEN AVAILABLE.
--- NOTE | 2021-07-05 07:18 | NUR ---
took over care of pt at 0700 07/05/21. pt is resting while on ventilator, set on pressure support 10/5 fIo2 30%, and 2 of levo. one incident of bradycardia reported overnight per overnight cashier RN at the beginning of her shift.
--- NOTE | 2021-07-05 14:00 | NUR ---
Pt was dry heaving and belching. Zofran given, but this did not alleviate symptoms and pt continued to dry heave. Held tube feed and per tube meds. Dr Christianson aware. Suctioning given to oropharynx, pt then vomited. On inspection of mouth, doboff was coiled. Dr Christianson notified. Provider adjusted dobhoff at nare to remove coil at oropharynx and dobhoff resecured. XR obtained to locate end of dobhoff. Plan to hold tube feeds indefinately. Pt continued to dry heave and burp, OG tube placed using lubricant with lidocaine. Placed to low intermittent suction. Burping and dry heaving resolved. OG tube chosen instead of NG tube as dobhoff is present to right nare and left nare had bleeding problems this hospitalization and previously required rhino rocket.
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
--- NOTE | 2021-07-05 15:25 | NUR ---
Pt's son and daughter have elected to place patient on comfort care. They are present at bedside, and will continue to offer emotional support as needed. Charge Nurse notified, and bedside RN along with RT are in the room with family now. I will remain available.
--- NOTE | 2021-07-05 17:26 | NUR ---
PT DID NOT RESPOND MEANINGFULY TO VERBAL STIMULI. MOVEMENTS WERE PURPOSFUL AT TIMES BUT NOT TO COMMANDS. PT IS ALSO NO LONGER TRACKING WITH EYES. DYSKINESIA STILL PRESENT. TF HAS BEEN OFF SINCE NOON DUE TO DOBHOFF END MIGRATING INTO PT'S STOMACH AND COILING IN BACK OF PT'S THROAT. AIR WAS SEEN IN PT'S STOMACH SO AN OG WAS PLACED FOR DECOMPRESSION. YELLOW TRANSLUCENT DRAINAGE FROM OG.PT HAD 1000 OF PIPER DRAINAGE INTO FMS AND ONLY 30ML OF YELLOW/ORANGE URINE INTO FARLEY. FAMILY CAME FOR MEETING WITH PALLIATIVE NURSE AND THE DECISION WAS MADE TO CHANEG PT TO COMFORT CARE. PT WAS THEN PLACED ON HEATED TRACH COLLAR AT 26% FiO2. SCOPALAMINE PATCH PLACED ON PT. WOUND CARE FOR SACRUM AND EAR WAS COMPLETED EARLIER IN THE DAY WITH NO IMPROVEMENT. VISITORS ARE CURRENTLY AT BEDSIDE WITH PT. COMFORT MEDS HAVE BEEN INITIATED AND PT IS RESTING COMFORTABLE AT THE MOMENT.
--- NOTE | 2021-07-05 19:22 | NUR ---
CARE ASSUMED FOR HOLLIE, MULTIPLE FAMILY MEMBERS AT THE BEDSIDE, HE RAISES HIS EYEBROWS AND TWITCHES HIS HEAD TO MY VOICE. OG TO LIS, TRACH COLLAR TO HUMIDIFIED AIR. NO PURPOSEFUL MOVEMENT OR FOLLOWING OF COMMANDS. FAMILY SAYS HE HASN'T OPENED HIS EYES FOR THEM. RECTAL TUBE AND FARLEY TO GRAVITY WITH NO OUTPUT. SKIN YELLOW, EYES YELLOW, OPENED AND GAZE IS UPWARD. CONTINUE TO CARE FOR PATIENT, FAMILY.
--- NOTE | 2021-07-05 20:11 | NUR ---
HOLLIE CONTINUES WITH NO RESPONSE TO VERBAL OR PHYSICAL STIMULI, DAUGHTER ROBERT AND SON EMELY IN THE ROOM WITH HIM. TRACH HAS HUMIDIFIED OXYGEN, TEMP NORMAL. HEART RATE NSR. BREATHING EVEN AND UNLABORED.
--- NOTE | 2021-07-05 21:02 | NUR ---
SON EMELY CALLED FOR ASSISTANCE, HOLLIE WAS COUGHING. MEDICATED PER AUG FOR COMFORT. HE IS NOW RESTING QUIETLY.
--- NOTE | 2021-07-05 21:55 | NUR ---
HOLLIE WAS TURNED AND REPOSITIONED, ROBERT AND EMELY REMAIN BY HIS SIDE, SHOWING STAFF PICTURES OF HOLILE PRIOR TO ILLNESS. OGT WITH RED RETURN WITH ANY MOVEMENT. FARLEY AND RECTAL TUBE CONTINUE WITHOUT ANY DRAINAGE. PT WITHOUT ANY RESPONSES. CHILDREN HAVE DECIDED TO LEAVE FOR THE NIGHT. WILL CALL FOR ANY CHANGES.
--- NOTE | 2021-07-06 01:03 | NUR ---
PT TURNED AND REPOSITIONED, ORAL CARE AND TRACH CARE DONE. PT WITH RESPONSIVE CLOSING OF THE MOUTH WHEN SWAB IS PUT IN. OTHERWISE, NO CHANGES.
--- NOTE | 2021-07-06 02:30 | NUR ---
HOLLIE HAS A DISCONJUGATE GAZE AND PUPILS UNREACTIVE. HE STILL CLOSES HIS MOUTH AROUND THE MOUTH SWAB. CONTINUE TO CARE NEEDED.
--- NOTE | 2021-07-06 04:53 | NUR ---
NO CHANGES NOTED IN HOLLIE, HIS SATS HOVER BETWEEN 62-72, HEART RATE 80-90S. EYES STILL DYSCONJUGATE, PUPILS NOT REACTING. FARLEY WITH 50ML OUT AND RECTAL TUBE WITH MINIMAL RETURN. TRACH COLLAR ON HUMIDIFIED AIR. OGT WITH RED TINGED RETURN.
--- NOTE | 2021-07-06 10:59 | NUR ---
NO CHANGES TOOK OVER CARE AT 0720, FAMILY UPDATED VIA PHONE, STATE THEY ARE ON THEIR WAY. PT HAS BEEN GIVEN COMFORT MEDS TO HELP WITH AIR HUNGER.
--- NOTE | 2021-07-06 13:37 | NUR ---
pt comfortable family at bedside will continue to monitor.
--- NOTE | 2021-07-06 13:40 | NUR ---
PT .... THE PT AT 1330, [employer] WAS CALLED AND THE PT IS NOT A CANDIDATE FOR DONATION. FAMILY IN THE ROOM WHEN THE PT , THE PT WAS PRONNOUNCED BY THIS RN. CHARGE NURSE AND NURING HEEL COMPRESSOR NOTIFIED.
== END 2021-07-06 17:13 | DRG 4 ==
LOC: ER 14:23 → PCU 17:53 → ICUE 17:53 → ICUW 17:53 → PCU 18:30 → ICUW 18:45 → ICUE 06-05 07:24 → MEDS 06-10 16:36 → ICUE 06-10 16:49
PROVIDERS: Family Medicine; Internal Medicine Critical Care Medicine; Internal Medicine Gastroenterology; Internal Medicine Nephrology; Pharmacist; Student in an Organized Health Care Education/Training Program; Surgery; ADMIT Internal Medicine
PROC: 5A09357 Assistance with Respiratory Ventilation, Less than 24 Consecutive Hours, Continuous Positive Airway Pressure (ICD-10-PCS; principal; 2021-06-04)
PROC: 0BH18EZ Insertion of Endotracheal Airway into Trachea, Via Natural or Artificial Opening Endoscopic (ICD-10-PCS; 2021-06-04)
PROC: 03HY32Z Insertion of Monitoring Device into Upper Artery, Percutaneous Approach (ICD-10-PCS; 2021-06-04)
PROC: 4A133B1 Monitoring of Arterial Pressure, Peripheral, Percutaneous Approach (ICD-10-PCS; 2021-06-04)
PROC: 4A133J1 Monitoring of Arterial Pulse, Peripheral, Percutaneous Approach (ICD-10-PCS; 2021-06-04)
PROC: 5A1955Z Respiratory Ventilation, Greater than 96 Consecutive Hours (ICD-10-PCS; 2021-06-04)
PROC: 3E033XZ Introduction of Vasopressor into Peripheral Vein, Percutaneous Approach (ICD-10-PCS; 2021-06-04)
PROC: 3E0333Z Introduction of Anti-inflammatory into Peripheral Vein, Percutaneous Approach (ICD-10-PCS; 2021-06-04)
PROC: 06HM33Z Insertion of Infusion Device into Right Femoral Vein, Percutaneous Approach (ICD-10-PCS; 2021-06-04)
PROC: 3E03329 Introduction of Other Anti-infective into Peripheral Vein, Percutaneous Approach (ICD-10-PCS; 2021-06-04)
PROC: 05HM33Z Insertion of Infusion Device into Right Internal Jugular Vein, Percutaneous Approach (ICD-10-PCS; 2021-06-06)
PROC: 5A1D70Z Performance of Urinary Filtration, Intermittent, Less than 6 Hours Per Day (ICD-10-PCS; 2021-06-19)
PROC: 0W3P8ZZ Control Bleeding in Gastrointestinal Tract, Via Natural or Artificial Opening Endoscopic (ICD-10-PCS; 2021-06-19)
PROC: 02HV33Z Insertion of Infusion Device into Superior Vena Cava, Percutaneous Approach (ICD-10-PCS; 2021-06-19)
PROC: B548ZZA Ultrasonography of Superior Vena Cava, Guidance (ICD-10-PCS; 2021-06-19)
PROC: 0B113F4 Bypass Trachea to Cutaneous with Tracheostomy Device, Percutaneous Approach (ICD-10-PCS; 2021-06-20)
PROC: 0BJ08ZZ Inspection of Tracheobronchial Tree, Via Natural or Artificial Opening Endoscopic (ICD-10-PCS; 2021-06-20)
PROC: 0JB70ZZ Excision of Back Subcutaneous Tissue and Fascia, Open Approach (ICD-10-PCS; 2021-06-25)
PROC: 0JB70ZZ Excision of Back Subcutaneous Tissue and Fascia, Open Approach (ICD-10-PCS; 2021-07-01)
PROC: 0DHA8UZ Insertion of Feeding Device into Jejunum, Via Natural or Artificial Opening Endoscopic (ICD-10-PCS; 2021-07-03)
DX: A41.89 Other specified sepsis (principal); L89.153 Pressure ulcer of sacral region, stage 3; R65.21 Severe sepsis with septic shock; G92.8 Other toxic encephalopathy; N15.1 Renal and perinephric abscess; J96.01 Acute respiratory failure with hypoxia; N18.6 End stage renal disease; K31.82 Dieulafoy lesion (hemorrhagic) of stomach and duodenum; J15.9 Unspecified bacterial pneumonia; U07.1 COVID-19; J12.82 Pneumonia due to coronavirus disease 2019; K72.01 Acute and subacute hepatic failure with coma; N17.9 Acute kidney failure, unspecified; I42.0 Dilated cardiomyopathy; E87.2 Acidosis; E87.1 Hypo-osmolality and hyponatremia; I48.92 Unspecified atrial flutter; Z51.5 Encounter for palliative care; Z66 Do not resuscitate; K31.84 Gastroparesis; E66.9 Obesity, unspecified; I10 Essential (primary) hypertension; Z79.899 Other long term (current) drug therapy; I48.91 Unspecified atrial fibrillation; R57.0 Cardiogenic shock; K74.60 Unspecified cirrhosis of liver; Z79.84 Long term (current) use of oral hypoglycemic drugs; E11.22 Type 2 diabetes mellitus with diabetic chronic kidney disease; E11.43 Type 2 diabetes mellitus with diabetic autonomic (poly)neuropathy; Z68.37 Body mass index [BMI] 37.0-37.9, adult; E83.42 Hypomagnesemia; E87.5 Hyperkalemia; E88.09 Other disorders of plasma-protein metabolism, not elsewhere classified; E11.65 Type 2 diabetes mellitus with hyperglycemia; K59.00 Constipation, unspecified; E80.6 Other disorders of bilirubin metabolism; E83.39 Other disorders of phosphorus metabolism; E83.51 Hypocalcemia; R04.0 Epistaxis; D64.9 Anemia, unspecified; E11.42 Type 2 diabetes mellitus with diabetic polyneuropathy
CPT/HCPCS: 0241U; 31500; 36415; 36430; 36556; 36569; 36600; 36620; 51702; 70450; 71045; 71260; 74018; 74019; 76705; 76770; 77001; 80048; 80053; 80069; 80074; 80076; 80202; 80299; 81001; 82140; 82248; 82271; 82330; 82550; 82803; 82947; 83605; 83690; 83735; 83880; 84100; 84132; 84145; 84478; 84484; 84630; 85014; 85018; 85025; 85027; 85384; 85610; 85730; 86317; 86850; 86900; 86901; 87040; 87070; 87077; 87086; 87106; 87186; 87205; 87340; 87493; 88305; 93005; 93010; 93308; 93321; 93970; 94002; 94003; 94640; 94660; 94760; 96365; 96366; 96375; 97110; 97162; 99285-25; A9270; C1750; C1751; C1752; C9113; J0171; J0282; J0456; J0610; J0692; J0696; J0881; J1100; J1160; J1170; J1250; J1265; J1450; J1644; J1720; J1815; J1940; J2060; J2250; J2270; J2370; J2405; J2543; J2597; J2704; J2765; J2997; J3010; J3370; J3475; J7030; J7040; J7050; J7060; J7070; J7131; P9046; P9059; Q9967